=== PATIENT | female | born 1995 | race Caucasian/White ===

== ENCOUNTER → 2020-06-19 10:56 | Outpatient (BNVA) | payer OTHER, SELFPAY | PROVIDERS: Visit Provider Nurse Practitioner Psychiatric/Mental Health | DX: F19.10 Other psychoactive substance abuse, uncomplicated (principal) | CPT/HCPCS: 80305; 81025; 96372; 99211 ==

== ENCOUNTER 2020-07-03 13:31 | Outpatient (REF) | payer OTHER, SELFPAY ==
[2020-07-03 16:49] LABS: MANUAL DIFF FLAG NO
[2020-07-03 16:52] LABS: Basophils Percent Auto 0.7 % (0-2); Eosinophils Absolute Auto 0.1 X10*3/uL (0.0-0.4); Eosinophils Percent Auto 2.3 % (0-4); Hematocrit 43.5 % (37-47); Hemoglobin 14.1 g/dl (12.0-16.0); Imm Gran Abs Auto 0.02 X10*3/uL (0.00-0.03); Imm Gran Pct Auto 0.3 % (0.0-0.4); Lymphocytes Absolute Auto 1.9 X10*3/uL (1.2-4.9); Lymphocytes Percent Auto 30.4 % (20-40); Mean Corpuscular HGB Conc 32.4 g/dl (31.0-35.0); Mean Corpuscular Hemoglobin 30.5 pg (27.0-33.0); Mean Platelet Volume 10.3 fL (9.4-12.3); Monocytes Absolute Auto 0.4 X10*3/uL (0.1-1.2); Monocytes Percent Auto 6.7 % (2-11); Neutrophils Absolute Auto 3.6 X10*3/uL (2.0-8.3); Neutrophils Percent Auto 59.6 % (45-73); Platelet Count 237 X10*3/uL (160-400); Red Blood Count 4.63 X10*6/uL (4.20-5.50); White Blood Count 6.1 X10*3/uL (4.8-10.8)
[2020-07-03 17:13] LABS: Alanine Aminotransferase 15 U/L (0-31); Albumin Level 4.7 g/dL (3.5-5.0); Alkaline Phosphatase 73 U/L (39-117); Anion Gap 14 (12-20); Aspartate Amino Transferase 15 U/L (5-31); Bilirubin Total 0.3 mg/dL (0.0-1.0); Blood Urea Nitrogen 16 mg/dL (9-16); Calcium 8.8 mg/dL (8.4-10.2); Carbon Dioxide 27 mmol/L (22-29); Chloride 101 mmol/L (96-108); Estimated Glomerular Filt Rate > 60; Glucose Random 76 mg/dL (60-115); Sodium 138 mmol/L (135-145); Total Protein 7.5 g/dL (6.5-8.0)
== END 2020-07-03 13:32 | disposition home or self-care (01) ==
LOC: HO.HMGCLDS 13:31
PROVIDERS: PCP Nurse Practitioner Family; Visit Provider Internal Medicine Gastroenterology
DX: E55.9 Vitamin D deficiency, unspecified (principal); K59.01 Slow transit constipation; R10.9 Unspecified abdominal pain
CPT/HCPCS: 36415; 80053; 82306; 85025

== ENCOUNTER → 2020-07-22 12:58 | Outpatient (BNVA) | payer OTHER, SELFPAY | PROVIDERS: PCP Nurse Practitioner Family; Visit Provider Advanced Practice Midwife | DX: Z30.42 Encounter for surveillance of injectable contraceptive (principal); F11.99 Opioid use, unspecified with unspecified opioid-induced disorder | CPT/HCPCS: 80305; 81025; 99211; 99212; J1050 ==

== ENCOUNTER → 2020-08-28 14:08 | Outpatient (BNVA) | payer OTHER, SELFPAY | PROVIDERS: Visit Provider Internal Medicine | DX: Z76.89 Persons encountering health services in other specified circumstances (principal) ==

== ENCOUNTER → 2020-10-06 13:07 | Outpatient (BNVA) | payer OTHER, SELFPAY | PROVIDERS: Visit Provider Internal Medicine | DX: Z51.81 Encounter for therapeutic drug level monitoring (principal); F11.99 Opioid use, unspecified with unspecified opioid-induced disorder | CPT/HCPCS: 80305; 81025; 99211 ==

== ENCOUNTER → 2020-10-23 13:09 | Outpatient (BNVA) | payer OTHER, SELFPAY | PROVIDERS: Visit Provider Advanced Practice Midwife | DX: Z30.42 Encounter for surveillance of injectable contraceptive (principal) | CPT/HCPCS: 96372 ==

== ENCOUNTER → 2020-10-24 15:07 | Outpatient (BNVA) | payer OTHER, SELFPAY | PROVIDERS: Visit Provider Internal Medicine ==

== ENCOUNTER 2020-11-13 08:30 | Outpatient (RCR) | payer OTHER, SELFPAY ==
[2020-11-05 15:16] VITALS: BMI 22.4
--- NOTE | 2020-11-05 16:40 | PM.EVENT ---
Event Note Date of Service: 11/05/20 Event Note: Pt scheduled for medication initial eval at 2pm. Pt came on video, did not allow herself on camera, stated she had worked all night, had an intake for PHP at 7:30a.m., attended the program all day, had seen her medicine provider on 11/04/20 and was not in need of any changes, needed to sleep for a few hours now, so she could attend class this evening. As a result, she declined intake.
--- NOTE | 2020-11-06 13:04 | PC.ADMIT ---
Patient is a 25 year old female who self referred to PHP d/t increase in depression, anxiety, and PTSD sxs. In addition patient reports relapse on Heroin after sobriety for a year. She reports she let her boyfriend, who uses heroin, move in with her recently as he was going to be homeless. She reports issues with boundaries and has difficulty staying no. Stated she did not want him to be homeless as she has been homeless in the past and did not want him to experience what she experienced. 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 Has much guilt and shame about this and suffers from PTSD as a result. She states that she relapsed as her boyfriends use triggered her use. She stated her boyfriend has until 11/27/[address] and move out. She reports she is trying to get her life back on track and has been attending online college and working. She also has her own apartment and she is focused on her mental health and sobriety as she does not want to lose the things she has worked so hard to obtain. 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 Patient is alert and oreinted x4. Denied SI. Gave verbal permission to email her a copy of her safety plan. Medications reconciled with patients pharmacy and patient.
--- NOTE | 2020-11-07 13:35 | PC.NURSE ---
case opened in treatment team
--- NOTE | 2020-11-12 09:54 | PC.NURSE ---
Pt did not show for programming. When called pt reported she was sleeping because she worked the overnight shift. Discussed if completing this program is doable for her while she is still working. She agreed to think about it. She reported she will be back tomorrow.
--- NOTE | 2020-11-12 14:14 | PC.NURSE ---
The client did not come in and was called. She overslept because she worked . She talked with her employer and will be taking a break from work to attend consistently.
--- NOTE | 2020-11-13 14:21 | PM.EVENT ---
Event Note Date of Service: 11/13/20 Event Note: Pt no show to telehealth appointment w/ psychiatric prescriber.
--- NOTE | 2020-11-18 15:05 | PC.NURSE ---
The client called this morning to inform me that she is having difficulty staying abstinent and will be going into a detox and has made the arrangements . She has out patient provides and will be continuing with them.( Guillermo Dumont and prescriber at [facility].)
--- NOTE | 2020-11-18 15:26 | PC.NURSE ---
I left a message for Guillermo Richey ( [phone]) that her client has been discharged and will call her for an appointment. I left my contact information.
== END 2020-11-13 23:55 | disposition other institution (70) ==
LOC: HO.PHPA 08:30
PROVIDERS: Visit Provider Psychiatry & Neurology Psychiatry
DX: F33.2 Major depressive disorder, recurrent severe without psychotic features (principal); F43.10 Post-traumatic stress disorder, unspecified; F11.20 Opioid dependence, uncomplicated
CPT/HCPCS: 90791; 90853

== ENCOUNTER → 2021-01-19 12:58 | Outpatient (BNVA) | payer OTHER, SELFPAY | PROVIDERS: Visit Provider Obstetrics & Gynecology | DX: Z30.42 Encounter for surveillance of injectable contraceptive (principal) | CPT/HCPCS: 96372; 99211; J1050 ==

== ENCOUNTER → 2021-01-20 11:08 | Outpatient (BNVA) | payer OTHER, SELFPAY | PROVIDERS: Visit Provider Internal Medicine ==

== ENCOUNTER → 2021-02-02 13:05 | Outpatient (BNVA) | payer OTHER, SELFPAY | PROVIDERS: Visit Provider Internal Medicine | DX: Z51.81 Encounter for therapeutic drug level monitoring (principal); F11.90 Opioid use, unspecified, uncomplicated | CPT/HCPCS: 80305; 99212 ==

== ENCOUNTER 2021-02-17 15:16 | Outpatient (REF) | payer OTHER, SELFPAY ==
[2021-02-20 08:53] LABS: Norfentanyl, Ur >500.0
[2021-02-20 14:42] LABS: Buprenorphine Negative; Norbuprenorphine Negative
== END 2021-02-17 15:17 | disposition home or self-care (01) ==
LOC: HO.LAB 15:16
PROVIDERS: Visit Provider Internal Medicine
DX: F11.99 Opioid use, unspecified with unspecified opioid-induced disorder (principal); Z79.899 Other long term (current) drug therapy
CPT/HCPCS: 80305; 80348; 80354; 80364; 80365; 99211

== ENCOUNTER → 2021-02-23 15:47 | Outpatient (BNVA) | payer OTHER, SELFPAY | PROVIDERS: Visit Provider Internal Medicine | DX: Z51.81 Encounter for therapeutic drug level monitoring (principal); Z79.899 Other long term (current) drug therapy | CPT/HCPCS: 80305 ==

== ENCOUNTER → 2021-03-05 09:53 | Outpatient (BNVA) | payer OTHER, SELFPAY | PROVIDERS: Visit Provider Nurse Practitioner Psychiatric/Mental Health | DX: F11.99 Opioid use, unspecified with unspecified opioid-induced disorder (principal) | CPT/HCPCS: 80305; 99212 ==

== ENCOUNTER → 2021-04-23 11:05 | Outpatient (BNVA) | payer OTHER, SELFPAY | PROVIDERS: Visit Provider Advanced Practice Midwife | DX: Z30.42 Encounter for surveillance of injectable contraceptive (principal) | CPT/HCPCS: 96372; 99211 ==

== ENCOUNTER → 2021-05-21 10:20 | Outpatient (BNVA) | payer OTHER, SELFPAY | PROVIDERS: Referring Provider Nurse Practitioner Family; Visit Provider Internal Medicine Gastroenterology | DX: K59.09 Other constipation (principal) | CPT/HCPCS: 99212 ==

== ENCOUNTER 2021-07-22 14:34 | Outpatient (REF) | payer OTHER, SELFPAY ==
[2021-07-23 03:02] LABS: CT PCR NOT DETECTED (Not Detect.); NG PCR NOT DETECTED (Not Detect.)
[2021-07-24 08:53] LABS: BV Int Neg Control Negative (Negative); BV Int Pos Control Positive (Positive)
== END 2021-07-22 14:35 | disposition home or self-care (01) ==
LOC: HO.LAB 14:34
PROVIDERS: PCP Nurse Practitioner Family; Visit Provider Advanced Practice Midwife
DX: Z30.42 Encounter for surveillance of injectable contraceptive (principal); Z20.2 Contact with and (suspected) exposure to infections with a predominantly sexual mode of transmission; N89.8 Other specified noninflammatory disorders of vagina; F11.99 Opioid use, unspecified with unspecified opioid-induced disorder; F41.9 Anxiety disorder, unspecified; F32.9 Major depressive disorder, single episode, unspecified
CPT/HCPCS: 87480; 87491; 87510; 87591; 87660; 88142; 96372

== ENCOUNTER 2021-08-20 11:48 | Outpatient (REF) | payer OTHER, SELFPAY ==
[2021-08-20 14:16] LABS: Alanine Aminotransferase 21 U/L (0-31); Albumin Level 4.6 g/dL (3.5-5.0); Alkaline Phosphatase 108 U/L (39-117); Anion Gap 12 (12-20); Aspartate Amino Transferase 16 U/L (5-31); Bilirubin Total 0.5 mg/dL (0.0-1.0); Blood Urea Nitrogen 9 mg/dL (9-16); Calcium 10.1 mg/dL (8.4-10.2); Carbon Dioxide 27 mmol/L (22-29); Chloride 103 mmol/L (96-108); Cholesterol 167 mg/dL; Estimated Glomerular Filt Rate > 60; Glucose Fasting 73 mg/dL (60-99); HDL Cholesterol 39 mg/dL; LDL Cholesterol Calculated 104 mg/dl; Lipase 20 U/L (8-78); Potassium 4.2 mmol/L (3.3-5.1); Sodium 138 mmol/L (135-145); Total Protein 8.5 g/dL (6.5-8.0); Triglycerides 122 mg/dL
== END 2021-08-20 11:49 | disposition home or self-care (01) ==
LOC: HO.HMGCLDS 11:48
PROVIDERS: Absent Provider Internal Medicine Gastroenterology; PCP Nurse Practitioner Family; Visit Provider Nurse Practitioner Family
DX: Z00.00 Encounter for general adult medical examination without abnormal findings (principal); K59.09 Other constipation
CPT/HCPCS: 36415; 80053; 80061; 83690

== ENCOUNTER → 2021-09-10 09:56 | Outpatient (BNVA) | payer OTHER, SELFPAY | PROVIDERS: Referring Provider Nurse Practitioner Family; Visit Provider Internal Medicine Gastroenterology | DX: K59.00 Constipation, unspecified (principal); K21.9 Gastro-esophageal reflux disease without esophagitis; E55.9 Vitamin D deficiency, unspecified | CPT/HCPCS: 99212 ==

== ENCOUNTER 2021-09-11 14:13 | Outpatient (REF) | payer OTHER, SELFPAY ==
--- NOTE | ~2021-09-11 | XR_ITS ---
EXAMINATION: XR ABDOMEN KUB CLINICAL INDICATION: Constipation COMPARISON: None TECHNIQUE: AP view of the abdomen. FINDINGS: There is stool in the colon suggestive of constipation. There are no dilated loops of bowel to suggest obstruction. There is no evidence of free air. No calcifications are seen. Bony structures are unremarkable. XR/XR KUB IMPRESSION: Constipation. No evidence of obstruction.
== END 2021-09-11 14:14 | disposition home or self-care (01) ==
LOC: HO.HMGCX 14:13
PROVIDERS: PCP Nurse Practitioner Family; Visit Provider Internal Medicine Gastroenterology
DX: K59.09 Other constipation (principal)
CPT/HCPCS: 74018

== ENCOUNTER → 2021-09-18 13:11 | Outpatient (BNVA) | payer OTHER, SELFPAY | PROVIDERS: Visit Provider Nurse Practitioner Psychiatric/Mental Health | DX: Z51.81 Encounter for therapeutic drug level monitoring (principal); F11.20 Opioid dependence, uncomplicated | CPT/HCPCS: 80305 ==

== ENCOUNTER → 2021-09-24 13:20 | Outpatient (BNVA) | payer OTHER, SELFPAY | PROVIDERS: Visit Provider Nurse Practitioner Psychiatric/Mental Health ==

== ENCOUNTER → 2021-10-01 13:29 | Outpatient (BNVA) | payer OTHER, SELFPAY | PROVIDERS: Visit Provider Nurse Practitioner Psychiatric/Mental Health | DX: F11.20 Opioid dependence, uncomplicated (principal) | CPT/HCPCS: 80305; 99212 ==

== ENCOUNTER → 2021-10-08 13:19 | Outpatient (BNVA) | payer OTHER, SELFPAY | PROVIDERS: Visit Provider Nurse Practitioner Psychiatric/Mental Health | DX: Z51.81 Encounter for therapeutic drug level monitoring (principal); F11.20 Opioid dependence, uncomplicated | CPT/HCPCS: 80305; 99212 ==

== ENCOUNTER → 2021-10-15 13:45 | Outpatient (BNVA) | payer OTHER, SELFPAY | PROVIDERS: Visit Provider Nurse Practitioner Psychiatric/Mental Health | DX: Z30.42 Encounter for surveillance of injectable contraceptive (principal); F11.20 Opioid dependence, uncomplicated; Z51.81 Encounter for therapeutic drug level monitoring; Z79.899 Other long term (current) drug therapy | CPT/HCPCS: 96372; 99211; 99212 ==

== ENCOUNTER → 2021-11-05 13:26 | Outpatient (BNVA) | payer OTHER, SELFPAY | PROVIDERS: Visit Provider Nurse Practitioner Psychiatric/Mental Health | DX: F11.20 Opioid dependence, uncomplicated (principal); R11.10 Vomiting, unspecified | CPT/HCPCS: 80305; 99212 ==

== ENCOUNTER 2021-11-06 09:22 | Emergency (ER) | payer OTHER, SELFPAY ==
--- NOTE | ~2021-11-06 | XR_ITS ---
EXAMINATION: XR CHEST CLINICAL INFORMATION: Upper abdominal pain COMPARISON: Previous chest x-ray May 2019 TECHNIQUE: 2 views of the chest were obtained. FINDINGS: No significant abnormality is noted involving the heart, lungs, mediastinum, bony thorax or soft tissues. XR/XR chest 2V IMPRESSION: Unremarkable examination.
--- NOTE | ~2021-11-06 | US_ITS ---
EXAMINATION: US ABDOMEN LIMITED CLINICAL INFORMATION: Right upper quadrant pain. Question gallstones. COMPARISON: Previous abdominal ultrasound April 2020 TECHNIQUE: Real-time imaging of the right upper quadrant abdominal viscera. FINDINGS: PANCREAS: Not well visualized due to bowel gas LIVER: Liver echotexture is increased. The liver is normal in size. The liver contour is normal. . No focal hepatic lesion. There is no intrahepatic biliary duct dilatation seen. GALLBLADDER: Normal. The gallbladder is physiologically distended without evidence of stones, sludge, polyps, wall thickening or pericholecystic fluid. COMMON BILE DUCT: Normal in caliber measuring 0.5 cm in diameter. RIGHT KIDNEY: Normal. No hydronephrosis. No renal calculi or focal parenchymal lesions. The kidney measures 9.4 cm in maximum dimension. FREE FLUID: None. US/US abdomen limited IMPRESSION: Normal-appearing gallbladder. Echogenic liver. Limited visualization of the pancreas.
[2021-11-06 09:37] VITALS: BP 128/85; PULSE 85; RESP 16; TEMP 36.6; O2SAT 99; BMI 23.5
--- NOTE | 2021-11-06 11:24 | ED_ITS ---
HPI - Abdominal Pain General Chief Complaint: Abdominal Pain Stated Complaint: abd pain Time Seen by Provider: 11/06/21 10:57 Source: patient Mode of arrival: ambulatory Limitations: no limitations History of Present Illness HPI narrative: Patient is a 26-year-old female with a medical history of substance abuse; opioids, hepatitis C, constipation, GERD. Patient presents emergency department for evaluation of abdominal pain. Onset was 1-1.5 months ago. location is diffusely across the upper abdomen but more so over the epigastrium and right upper quadrant. She is followed by [facility] Gastroenterology Dr. Arthur, but has not yet been seen for this complaint. she states that the pain is intermittent. Lasting anywhere from 1-3 hours at a time. There is associated nausea. Once she vomits the pain subsides. States that the emesis is a clear color, no blood. she does report a history of a stomach ulcer in 2016. In addition she has been experiencing acid reflux type symptoms for which she was taking fa motidine from August to mid September. Denies fevers, chills, nasal congestion, sore throat, cough, chest pain, shortness of breath, difficulty breathing, lower abdominal pain, dysuria, urinary frequency / urgency / hesitancy, constipation or diarrhea. She does endorse bright red blood in her stools for which she is being followed by GI for and is prescribed Linzess. Denies possibility of , she is on Depo-Provera injections Related Data Previous Rx's Medication Instructions Recorded magnesium hydroxide 400 mg/5 mL 5 ml PO DAILY PRN 7 Days #60 ml 05/21/21 oral suspension (Milk of Magnesia) medroxyprogesterone 150 mg/mL 150 mg IM Q12W #1 ml 07/22/21 intramuscular suspension (Depo-Provera) cholecalciferol (vitamin D3) 125 125 mcg PO DAILY 90 Days #90 tab 09/10/21 mcg (5,000 unit) tablet famotidine 20 mg tablet 20 mg PO BEDTIME 30 Days #30 tab 09/10/21 buprenorphine 8 mg-naloxone 2 mg 1 film BUCCAL BID #14 ea 10/01/21 sublingual film (Suboxone) buprenorphine 2 mg-naloxone 0.5 mg 2 film BUCCAL DAILY 5 Days #10 ea 10/08/21 sublingual film (Suboxone) clonidine HCl 0.1 mg tablet 0.1 mg PO TID 7 Days #21 tab 10/08/21 hydroxyzine pamoate 25 mg capsule 25 mg PO TID PRN 7 Days #21 cap 10/08/21 (Vistaril) lubiprostone 8 mcg capsule 8 mcg PO BID 30 Days #60 cap 10/12/21 (Amitiza) ondansetron HCl 4 mg tablet 4 mg PO BID-TID PRN #14 tab 11/05/21 Allergies Allergy/AdvReac Type Severity Reaction Status Date / Time No Known Allergies Allergy Verified 11/06/21 09:37 [No Known Allergies*] Review of Systems Review of Systems Constitutional : No Weight loss, No Fever, No Chills ENT/Mouth :? No sore throat, No Rhinorrhea Eyes: No Swelling, No Redness Cardiovascular : No Chest Pain, No SOB, No Edema Respiratory : No Cough, No Sputum, No Wheezing Gastrointestinal : Positive Nausea, Positive Vomiting, no Diarrhea, positive abdominal pain, positive Hematochezia, No Melena Genitourinary : No Dysuria, No Urinary Frequency, No Hematuria, No Urgency? Musculoskeletal : No joint pain, No Myalgias, No Joint Swelling Skin : No Skin Lesions, No rash Neuro : No Weakness, No Numbness, No Dizziness, No Headache Psych : No Anxiety/Panic, No Depression Heme/Lymph: No Bruising, No Lymphadenopathy Endocrine : No Polyuria, No Polydipsia Yes all other systems are reviewed and are negative [facility] Past Medical History Attestation statement: The following information was validated with the patient. Source: old records reviewed Medical History Opioid use disorder Scoliosis Sleep disturbance Surgical History No pertinent past surgical history Family History Family History Father Alcoholism Mother No problems noted. Maternal Grandfather Brain tumor Sister No problems noted. Social History Social History Household Members: None Alcohol intake: current Alcohol intake frequency: holidays/special occasions only Alcohol type: beer and wine Patient Tobacco Use Status: Former Tobacco user Cigarettes Per Day: 2 Years Smoked: 2 years Advance Directives: No Advance Directives Information Provided: Yes Physical Exam ED Vital Signs: Vital Signs - 24 hr 11/06/21 09:37 Temperature 97.8 F Pulse Rate 85 Respiratory Rate 16 Blood Pressure 128/85 Pulse Oximetry 99 BMI result Body Mass Index 23.5 Vital signs have been reviewed as normal and appeared to be correct. Blood pressure normal.? Heart rate normal.? Respiration rate normal. Temperature normal.? Oxygen saturation normal. Appearance: Alert.?Oriented to person, place and time. No acute distress.?Normal affect. Eyes: Pupils equal, round and reactive to light.? ENT: Pharynx normal.?? Neck: Normal inspection.? Neck supple.?? CVS: Heart sounds normal. Normal heart rate and rhythm.? Pulses normal.?? Respiratory: No respiratory distress.? Lung sounds clear to auscultation bilaterally?? Abdomen: Soft with tenderness to palpation diffusely of the upper abdomen, negative Louise sign.. Normoactive bowel sounds. No pulsatile mass.?? Skin: Skin warm and dry.? Normal skin color.? Normal skin turgor.?? Extremities: No lower extremity edema.? Neuro: Moves all extremities spontaneously. Sensation intact bilaterally. No focal neuro deficits. Ambulates with normal steady gait. Course Course Course Narrative: Patient is a 26-year-old female being evaluated for abdominal pain with nausea and vomiting. Will obtain CBC to evaluate for leukocytosis/ anemia, CMP and lipase to evaluate for abnormal electrolytes /abnormal renal function/ abnormal hepatic/biliary function. Urinalysis to evaluate for infection and . Currently, she reports having little to no pain, has been drinking a warm lemon water and this has actually been helping. given her tenderness in the right upper quadrant will obtain ultrasound to evaluate for cholelithiasis / cholecystitis, as her pain may be related to biliary colic. History and physical exam not consistent with GI perforation, GI bleed, AAA, aortic dissection, ectopic , DKA. Not consistent with strangulated hernia, bowel obstruction, pulmonary embolism, mesenteric ischemia, myocardial infarction HEART score 0, ovarian torsion. Reevaluation(s) Reevaluation #1: COVID- 19 testing is negative. Chest x-ray shows no acute disease. Having a difficult time obtaining patient's labs. Patient is being evaluated by Surekha Villalobos NP outpatient for substance use disorder, she is at bedside with patient, and currently reporting withdrawal symptoms, methadone to be ordered Time: 12:56 Reevaluation #2: Continue to have difficulty obtaining patient's labs due to scarring of her veins. Offered to look with ultrasound guidance but patient is requesting to leave at this time. She feels she is unable to remain in the emergency department. Ultrasound RUQ with no acute findings. Advised patient that she w ould be leaving against medical advice, she verbalizes understanding of this, she is alert and oriented x3, ambulatory with a steady gait, no apparent distress. Discussed reasons to return to the emergency department in addition to contacting her primary care provider and her GI provider to schedule follow- up in 1-3 days Time: 13:59 MDM - Abdominal Pain Medical Records Attestation: I reviewed the patient's medical records. Lab Data Attestation: I reviewed the patient's lab results. Result diagrams: 11/06/21 14:04 Labs: Lab Results 11/06/21 Range/Units 11:38 COVID-19 ([facility]) Negative (Negative) COVID-19 Clin Com See Note Imaging Data Chest x-ray: Radiologist's impression: FINDINGS: No significant abnormality is noted involving the heart, lungs, mediastinum, bony thorax or soft tissues. XR/XR chest 2V IMPRESSION: Unremarkable examination. US - abdomen: Radiologist's impression: US/US abdomen limited IMPRESSION: Normal-appearing gallbladder. Echogenic liver. Limited visualization of the pancreas. Discharge Plan Discharge Clinical Impression: Abdominal pain Patient Disposition: Left Against Medical Advice Additional Instructions: At this time the cause of your abdominal pain is unclear. You are leaving against medical advice. As we discussed, it is unclear the cause of your abdominal pain and vomiting at this time. It is unclear whether you have any life-threatening conditions as we were unable to obtain any blood work or the results of her imaging studies. Please return to the emergency department with any new or worsening symptoms. You should contact her primary care provider and your GI doctor in 1-3 days to schedule follow-up. Prescriptions: No Action lubiprostone [Amitiza] 8 mcg capsule 8 mcg PO BID 30 Days Qty: 60 2RF magnesium hydroxide [Milk of Magnesia] 400 mg/5 mL suspension 5 ml PO DAILY PRN (Reason: constipation) 7 Days Qty: 60 1RF famotidine 20 mg tablet 20 mg PO BEDTIME 30 Days Qty: 30 3RF cholecalciferol (vitamin D3) 125 mcg (5,000 unit) tablet 125 mcg PO DAILY 90 Days Qty: 90 1RF medroxyprogesterone [Depo-Provera] 150 mg/mL suspension 150 mg IM Q12W Qty: 1 5RF buprenorphine-naloxone [Suboxone] 8-2 mg film 1 film buccal BID Qty: 14 0RF ondansetron HCl 4 mg tablet 4 mg PO BID-TID PRN (Reason: nausea and vomiting) Qty: 14 0RF clonidine HCl 0.1 mg tablet 0.1 mg PO TID 7 Days Qty: 21 0RF hydroxyzine pamoate [Vistaril] 25 mg capsule 25 mg PO TID PRN (Reason: anxiety) 7 Days Qty: 21 0RF buprenorphine-naloxone [Suboxone] 2-0.5 mg film 2 film buccal DAILY 5 Days Qty: 10 0RF Stand Alone Forms: Against Medical Advice
[2021-11-06 11:59] LABS: COVID-19 Test Negative (Negative)
[2021-11-06] MEDS: methADONE HCl 20 MG/2 ML ORAL.CONC 30 MG PO (13:44)
--- NOTE | 2021-11-06 13:46 | PC.NURSE ---
This RN pulled methadone from pyxis per order for adminstration. When wasting 10mg of Methadone too much medication dispensed out of the syringe. The remaining 10mg of methadone was wasted in the pyxis with another RN. Brinda Pharmacist aware and was able to override the new methadone for appropriate administration dose.
--- NOTE | 2021-11-06 14:21 | PC.NURSE ---
Patient is a hard stick for a blood try. Multiple attempts by technical account representative. Phlebotomy was called and SEVERITY OF ILLNESS COORDINATOR looked as well. Patient states she is tired of waiting and chooses to leave AMA. SEVERITY OF ILLNESS COORDINATOR dicussed risks of leaving AMA
== END 2021-11-06 14:23 | disposition left against medical advice (07) ==
PROVIDERS: Nurse Practitioner Family; Emergency Provider Emergency Medicine; PCP Nurse Practitioner Psychiatric/Mental Health
DX: R10.9 Unspecified abdominal pain (principal); R11.10 Vomiting, unspecified; F11.20 Opioid dependence, uncomplicated; Z20.822 Contact with and (suspected) exposure to COVID-19
CPT/HCPCS: 71046; 76705; 87635; 99283; 99284

== ENCOUNTER → 2021-11-12 12:11 | Outpatient (BNVA) | payer OTHER, SELFPAY | PROVIDERS: PCP Nurse Practitioner Psychiatric/Mental Health; Visit Provider Internal Medicine Gastroenterology | DX: F11.20 Opioid dependence, uncomplicated (principal); K21.9 Gastro-esophageal reflux disease without esophagitis; K59.09 Other constipation | CPT/HCPCS: 99212 ==

== ENCOUNTER → 2022-01-18 15:25 | Outpatient (BNVA) | payer OTHER, SELFPAY | PROVIDERS: Visit Provider Advanced Practice Midwife | DX: Z30.42 Encounter for surveillance of injectable contraceptive (principal) | CPT/HCPCS: 96372; 99211 ==

== ENCOUNTER 2022-02-18 12:16 | Outpatient (REF) | payer OTHER, SELFPAY ==
[2022-02-19 09:16] LABS: BV Int Neg Control Negative (Negative); BV Int Pos Control Positive (Positive)
[2022-02-19 09:33] LABS: CT PCR NOT DETECTED (Not Detect.); NG PCR DETECTED (Not Detect.)
== END 2022-02-18 12:17 | disposition home or self-care (01) ==
LOC: HO.LAB 12:16
PROVIDERS: Visit Provider Advanced Practice Midwife
DX: Z11.3 Encounter for screening for infections with a predominantly sexual mode of transmission (principal); N89.8 Other specified noninflammatory disorders of vagina
CPT/HCPCS: 87480; 87491; 87510; 87591; 87660; 99212

== ENCOUNTER → 2022-02-23 15:14 | Outpatient (BNVA) | payer OTHER, SELFPAY | PROVIDERS: Visit Provider Advanced Practice Midwife | DX: A54.9 Gonococcal infection, unspecified (principal) | CPT/HCPCS: 96372; 99212; J0696 ==

== ENCOUNTER → 2022-03-04 13:38 | Outpatient (BNVA) | payer OTHER, SELFPAY | PROVIDERS: PCP Nurse Practitioner Family; Visit Provider Nurse Practitioner Psychiatric/Mental Health | DX: F11.20 Opioid dependence, uncomplicated (principal) | CPT/HCPCS: 80305; 99212 ==

== ENCOUNTER → 2022-03-11 09:27 | Outpatient (BNVA) | payer OTHER, SELFPAY | PROVIDERS: PCP Nurse Practitioner Family; Visit Provider Nurse Practitioner Psychiatric/Mental Health | DX: Z51.81 Encounter for therapeutic drug level monitoring (principal); F11.20 Opioid dependence, uncomplicated | CPT/HCPCS: 80305; 99212 ==

== ENCOUNTER → 2022-04-14 11:00 | Outpatient (BNVA) | payer OTHER, SELFPAY | PROVIDERS: Visit Provider Advanced Practice Midwife | DX: Z30.42 Encounter for surveillance of injectable contraceptive (principal); F11.20 Opioid dependence, uncomplicated | CPT/HCPCS: 96372; 99211; 99212 ==

== ENCOUNTER → 2022-05-04 11:48 | Outpatient (BNVA) | payer OTHER, SELFPAY | PROVIDERS: PCP Nurse Practitioner Family; Visit Provider Nurse Practitioner Psychiatric/Mental Health | DX: F11.20 Opioid dependence, uncomplicated (principal); Z51.81 Encounter for therapeutic drug level monitoring; Z79.899 Other long term (current) drug therapy | CPT/HCPCS: 80305; 99212 ==

== ENCOUNTER 2022-05-12 14:07 | Outpatient (REF) | payer OTHER, SELFPAY ==
[2022-05-13 06:29] LABS: CT PCR NOT DETECTED (Not Detect.); NG PCR NOT DETECTED (Not Detect.)
== END 2022-05-12 14:08 | disposition home or self-care (01) ==
LOC: HO.LNP 14:07
PROVIDERS: PCP Nurse Practitioner Family; Visit Provider Advanced Practice Midwife
DX: Z11.3 Encounter for screening for infections with a predominantly sexual mode of transmission (principal); Z20.2 Contact with and (suspected) exposure to infections with a predominantly sexual mode of transmission
CPT/HCPCS: 87491; 87591; 99212

== ENCOUNTER → 2022-07-07 14:47 | Outpatient (BNVA) | payer OTHER, SELFPAY | PROVIDERS: PCP Nurse Practitioner Family; Visit Provider Advanced Practice Midwife | DX: Z30.42 Encounter for surveillance of injectable contraceptive (principal) | CPT/HCPCS: 96372; 99211 ==

== ENCOUNTER 2022-09-28 13:34 | Outpatient (REF) | payer OTHER, SELFPAY ==
[2022-09-29 05:36] LABS: CT PCR NOT DETECTED (Not Detect.); NG PCR NOT DETECTED (Not Detect.)
== END 2022-09-28 13:35 | disposition home or self-care (01) ==
LOC: HO.LNP 13:34
PROVIDERS: PCP Nurse Practitioner Family; Visit Provider Advanced Practice Midwife
DX: Z01.419 Encounter for gynecological examination (general) (routine) without abnormal findings (principal); Z11.3 Encounter for screening for infections with a predominantly sexual mode of transmission
CPT/HCPCS: 0353U

== ENCOUNTER → 2022-09-29 09:39 | Outpatient (BNVA) | payer OTHER, SELFPAY | PROVIDERS: PCP Nurse Practitioner Family; Visit Provider Advanced Practice Midwife | DX: Z30.42 Encounter for surveillance of injectable contraceptive (principal) | CPT/HCPCS: 96372; 99211 ==

== ENCOUNTER 2022-10-06 11:49 | Outpatient (REF) | payer OTHER, SELFPAY ==
[2022-10-06 13:55] LABS: MANUAL DIFF FLAG NO
[2022-10-06 14:03] LABS: Basophils Absolute Auto 0.1 X10*3/uL (0.0-0.2); Basophils Percent Auto 0.8 % (0-2); Eosinophils Absolute Auto 0.5 X10*3/uL (0.0-0.4); Eosinophils Percent Auto 6.7 % (0-4); Hematocrit 42.2 % (37.0-47.0); Hemoglobin 14.3 g/dl (12.0-16.0); Imm Gran Abs Auto 0.02 X10*3/uL (0.00-0.03); Imm Gran Pct Auto 0.3 % (0.0-0.4); Lymphocytes Absolute Auto 3.9 X10*3/uL (1.2-4.9); Mean Corpuscular HGB Conc 33.9 g/dl (31.0-35.0); Mean Corpuscular Hemoglobin 28.7 pg (27.0-33.0); Mean Corpuscular Volume 84.6 fL (80.0-98.0); Monocytes Absolute Auto 0.4 X10*3/uL (0.1-1.2); Monocytes Percent Auto 6.2 % (2-11); Neutrophils Absolute Auto 2.2 x10*3/uL (2.0-8.3); Platelet Count 269 X10*3/uL (160-400); Red Blood Count 4.99 X10*6/uL (4.20-5.50); Red Cell Distribution Width 13.8 % (11.0-16.0); White Blood Count 7.1 X10*3/uL (4.8-10.8)
[2022-10-06 14:04] LABS: Appearance Urine Clear; Color Urine Yellow; Glucose Urine UA Negative (Negative); Leukocyte Esterase Urine Negative (Negative); Nitrite Urine Negative (Negative); Specific Gravity - Urine 1.015 (1.005-1.025); Urine Blood Negative (Negative); Urine Ketones Negative (Negative); Urine Protein Negative (Neg-Trace)
[2022-10-06 14:54] LABS: Alanine Aminotransferase 23 U/L (0-31); Albumin Level 4.6 g/dL (3.5-5.0); Alkaline Phosphatase 83 U/L (39-117); Anion Gap 18 (12-20); Aspartate Amino Transferase 23 U/L (5-31); Bilirubin Total 0.4 mg/dL (0.0-1.0); Blood Urea Nitrogen 10 mg/dL (9-16); Calcium 9.5 mg/dL (8.4-10.2); Carbon Dioxide 21 mmol/L (22-29); Chloride 105 mmol/L (96-108); Cholesterol 162 mg/dL; Estimated Glomerular Filt Rate > 60; Glucose Fasting 94 mg/dL (60-99); HDL Cholesterol 56 mg/dL; LDL Cholesterol Calculated 95 mg/dl; Sodium 140 mmol/L (135-145); Total Protein 7.5 g/dL (6.5-8.0); Triglycerides 56 mg/dL
[2022-10-06 14:55] LABS: TSH reflex Free T4 2.19 uIU/mL (0.32-4.0)
== END 2022-10-06 11:50 | disposition home or self-care (01) ==
LOC: HO.HMGCLDS 11:49
PROVIDERS: PCP Nurse Practitioner Family; Visit Provider Nurse Practitioner Family
DX: F32.9 Major depressive disorder, single episode, unspecified (principal); F41.9 Anxiety disorder, unspecified
CPT/HCPCS: 36415; 80053; 80061; 81003; 84443; 85025

== ENCOUNTER → 2022-12-22 15:20 | Outpatient (BNVA) | payer OTHER, SELFPAY | PROVIDERS: PCP Nurse Practitioner Family; Visit Provider Advanced Practice Midwife | DX: Z30.42 Encounter for surveillance of injectable contraceptive (principal) | CPT/HCPCS: 96372; 99211 ==

== ENCOUNTER → 2023-02-24 13:22 | Outpatient (BNVA) | payer OTHER, SELFPAY | PROVIDERS: PCP Nurse Practitioner Family; Visit Provider Nurse Practitioner Psychiatric/Mental Health | DX: Z51.81 Encounter for therapeutic drug level monitoring (principal); F11.20 Opioid dependence, uncomplicated | CPT/HCPCS: 80305; 99212 ==

== ENCOUNTER → 2023-03-03 11:16 | Outpatient (BNVA) | payer OTHER, SELFPAY | PROVIDERS: PCP Nurse Practitioner Family; Visit Provider Internal Medicine Gastroenterology | DX: K59.00 Constipation, unspecified (principal); K21.9 Gastro-esophageal reflux disease without esophagitis | CPT/HCPCS: 99212 ==

== ENCOUNTER 2023-03-04 16:11 | Outpatient (AMB) | payer OTHER, SELFPAY ==
--- NOTE | 2023-03-04 16:12 | MHC.OFFVIS ---
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 Reviewed opioid use and medication admin times. ? taking suboxone dose too close to most recent use. Discussed alternate strategies for induction, patient stating she wants to try microdose induction method again. Advised to not use in the middle of the night as she previously had been to allow more time before morning suboxone dose. [facility] Medical History (Updated 03/03/23 @ 11:24 by Roge Arthur MD) Anxiety and depression Chronic constipation Depot contraception Drug abuse GERD (gastroesophageal reflux disease) Opioid use disorder Scoliosis Sleep disturbance Vitamin D deficiency Surgical History No pertinent past surgical history Family History Father Alcoholism Mother No problems noted. Maternal Grandfather Brain tumor Sister No problems noted. Social History Household Members: None Housing: Apartment Alcohol intake: current Alcohol intake frequency: holidays/special occasions only Alcohol type: beer and wine Patient Tobacco Use Status: Former Tobacco user Cigarettes Per Day: 2 Years Smoked: 2 years e-Cigarette/Vaping Use: Currently Using service: No Current occupational status: employed Current occupation: N Current occupational exposures/hazards: No Cognitive needs: No Hearing needs: No Vision needs: No Female Reproductive History Menstrual Age of Menarche: 13 Review of Systems Const Reports as per HPI Physical Exam Vital Signs: Last Vital Signs Pulse 77 03/04/23 16:19 BP 114/68 03/04/23 16:19 Pulse Ox 96 03/04/23 16:19 Oxygen Delivery Method Room Air 03/04/23 16:19 Const General: cooperative, healthy appearing and no acute distress Psych Appearance: well kempt Speech and movement: Clear speech present Affect: normal affect Attitude: cooperative Thought process: Normal thought process present Thought content: Normal thought content present Insight: Good insight present (Psych) Judgement: Good judgement present (Psych) Assessment & Plan Assessment & Plan (1) Opioid use disorder: Code(s): F11.99 - Opioid use, unspecified with unspecified opioid-induced disorder Plan: will restart microdose induction method overdose prevention discussion follow up one week RN to follow up --my need medication refill Coding Level of Care Code Est Pt Level 4 (65682) Diagnoses Opioid use disorder F11.99
[2023-03-04 16:19] VITALS: BP 114/68; PULSE 77; O2SAT 96
== END 2023-03-04 16:59 | disposition home or self-care (01) ==
LOC: HO.HCC 16:11
PROVIDERS: PCP Nurse Practitioner Family; Visit Provider Nurse Practitioner Psychiatric/Mental Health
DX: F11.99 Opioid use, unspecified with unspecified opioid-induced disorder (principal)
CPT/HCPCS: 99214

== ENCOUNTER → 2023-03-04 16:11 | Outpatient (BNVA) | payer OTHER, SELFPAY | PROVIDERS: PCP Nurse Practitioner Family; Visit Provider Nurse Practitioner Psychiatric/Mental Health | DX: F11.20 Opioid dependence, uncomplicated (principal); U07.0 Vaping-related disorder; Z51.81 Encounter for therapeutic drug level monitoring; Z79.899 Other long term (current) drug therapy | CPT/HCPCS: 99212 ==

== ENCOUNTER 2023-03-11 11:03 | Outpatient (AMB) | payer OTHER, SELFPAY ==
--- NOTE | 2023-03-11 11:03 | MHC.OFFVIS ---
Intake Vital Signs 03/11/23 11:08 BP 122/80 Blood Pressure Location Lt radial Position Sitting Pulse 85 Pulse Source Pulse Oximeter Pulse Oximetry (%) 95 Oxygen Delivery Method Room Air Intake Visit Reasons: mat visit Intake Note: The patient presents for a mat visit Civil Cadd Technician Required: No Allergies No Known Allergies [No Known Allergies*] Allergy (Verified 03/11/23 11:09) Do you need a note to return to daycare/school/sports/work: No HPI mat visit HPI Details Patient presents for follow up Has cut out using overnight. Feeling very positive about this. Would like to continue cutting down her use. Would also like to restart low-dose induction. She reports that she stopped after 3 days, denies any withdrawal symptoms. Likely related to anxiety of previous experience with withdrawal. Patient continues to engage in healthy recovery oriented activities including exercising with a group of women, eating healthy. [facility] Medical History (Updated 03/03/23 @ 11:24 by Roge Arthur MD) Anxiety and depression Chronic constipation Depot contraception Drug abuse GERD (gastroesophageal reflux disease) Opioid use disorder Scoliosis Sleep disturbance Vitamin D deficiency Surgical History No pertinent past surgical history Family History Father Alcoholism Mother No problems noted. Maternal Grandfather Brain tumor Sister No problems noted. Social History Household Members: None Housing: Apartment Alcohol intake: current Alcohol intake frequency: holidays/special occasions only Alcohol type: beer and wine Patient Tobacco Use Status: Former Tobacco user Cigarettes Per Day: 2 Years Smoked: 2 years e-Cigarette/Vaping Use: Currently Using service: No Current occupational status: employed Current occupation: [employer] Current occupational exposures/hazards: No Cognitive needs: No Hearing needs: No Vision needs: No Female Reproductive History Menstrual Age of Menarche: 13 Review of Systems Const Reports as per HPI and Reports no additional complaints Physical Exam Vital Signs: Last Vital Signs Pulse 85 03/11/23 11:08 BP 122/80 03/11/23 11:08 Pulse Ox 95 03/11/23 11:08 Oxygen Delivery Method Room Air 03/11/23 11:08 Const General: cooperative, healthy appearing and no acute distress Psych Appearance: well kempt Speech and movement: Clear speech present Affect: normal affect Attitude: cooperative Thought process: Normal thought process present Thought content: Normal thought content present Insight: Good insight present (Psych) Judgement: Good judgement present (Psych) Assessment & Plan Assessment & Plan (1) Opioid use disorder: Code(s): F11.99 - Opioid use, unspecified with unspecified opioid-induced disorder Plan: Will continue to attempt low-dose induction Sent additional 2 mg films, patient already has 8 mg films from previous prescription Follow up 2 weeks Medications: Changed From buprenorphine-naloxone 2-0.5 mg (Suboxone) 1 film sublingual BID 4 ea 0RF To buprenorphine-naloxone 2-0.5 mg (Suboxone) take in addition to 8mg QD 1 film sublingual DAILY 10 ea 0RF Coding Level of Care Code Est Pt Level 4 (77260) Diagnoses Opioid use disorder F11.99
[2023-03-11 11:08] VITALS: BP 122/80; PULSE 85; O2SAT 95
== END 2023-03-11 11:31 | disposition home or self-care (01) ==
LOC: HO.HCC 11:03
PROVIDERS: PCP Nurse Practitioner Family; Visit Provider Nurse Practitioner Psychiatric/Mental Health
DX: F11.99 Opioid use, unspecified with unspecified opioid-induced disorder (principal)
CPT/HCPCS: 99214

== ENCOUNTER → 2023-03-11 11:03 | Outpatient (BNVA) | payer OTHER, SELFPAY | PROVIDERS: PCP Nurse Practitioner Family; Visit Provider Nurse Practitioner Psychiatric/Mental Health | DX: F11.20 Opioid dependence, uncomplicated (principal) | CPT/HCPCS: 99212 ==

== ENCOUNTER 2023-03-15 15:10 | Outpatient (AMB) | payer OTHER, SELFPAY ==
[2023-03-15 15:18] VITALS: BMI 25.1
--- NOTE | 2023-03-15 15:18 | AM.OFFVISNUR ---
Intake Vital Signs 03/15/23 15:18 Height 5 ft 7 in Weight 72.745 kg BMI 25.1 Intake Visit Reasons: DEPO Allergies No Known Allergies [No Known Allergies*] Allergy (Verified 03/11/23 11:09) Nursing Note Faye is here for her scheduled Depo-Provera inj. She has no complaints at this time. Follow up in 12 weeks. Office Procedures Depo Questionnaire If YES to any of the following questions, please consult a provider. Date of last injection: 12/22/22 Date of last gynecology exam: 09/20/22 Menstrual pattern since last injection has been: Not Applicable Irregular bleeding?: No Breast lumps or other breast changes?: No Changes in weight or appetite?: No Depression or changes in mood?: No Abnormal hair growth or loss?: No Skin problems (rash, acne, discoloration)?: No Pain at the injection site?: No Headaches?: No Nervousness?: No Abdominal pain or cramping?: No Dizziness or nausea?: No Fatigue or weakness?: No Decrease in sexual drive?: No Chest pain or shortness of breath?: No Swelling in arms or legs?: No Any other problems or concerns?: none voiced Form completed by?: Ester Magana LPN Office Meds Depo-Provera Performing Provider: Carmenza Wilson CNM Administered by: Vanessa Magana LPN on 03/15/23 15:19 Dose Route Admin Location Lot Number Expiration Date [employer] 150 mg IM left deltoid [id number] 01/26/25 77141-192-57 [facility] Coding Level of Care Code Established Pt Est Pt Level 1 (28968) Patient Type Established History Problem Focused Exam Problem Focused Medical Decision Making Straight Forward Diagnoses Time Spent (min) 15 Assessment & Plan Assessment & Plan Orders: Orders AMB Medroxyprogesterone Injection Patient Supplied Today Z30.42 - Encounter for surveillance of injectable contraceptive
== END 2023-03-15 15:19 | disposition home or self-care (01) ==
LOC: HO.HWS 15:10
PROVIDERS: PCP Nurse Practitioner Family; Visit Provider Advanced Practice Midwife
DX: Z30.42 Encounter for surveillance of injectable contraceptive (principal)
CPT/HCPCS: J1050

== ENCOUNTER → 2023-03-15 15:10 | Outpatient (BNVA) | payer OTHER, SELFPAY | PROVIDERS: PCP Nurse Practitioner Family; Visit Provider Advanced Practice Midwife | DX: Z30.42 Encounter for surveillance of injectable contraceptive (principal) | CPT/HCPCS: 96372; 99211 ==

== ENCOUNTER 2023-04-01 10:29 | Outpatient (AMB) | payer OTHER, SELFPAY ==
[2023-04-01 10:36] VITALS: BP 110/78; PULSE 82; O2SAT 99
--- NOTE | 2023-04-01 10:36 | MHC.OFFVIS ---
Intake Vital Signs 04/01/23 10:36 BP 110/78 Blood Pressure Location Lt brachial Position Sitting Pulse 82 Pulse Oximetry (%) 99 Intake Visit Reasons: mat visit Allergies No Known Allergies [No Known Allergies*] Allergy (Verified 03/11/23 11:09) HPI mat visit HPI Details Patient presents for follow up Reports she has been unable to transition fully to buprenorphine. Gets to day 4, then does not take full film for fear of precipitated withdrawal. Discussed other methods of induction including Q2 hr dosing and macro dosing. Patient will think about it. Still using 6 bags intranasally daily. [facility] Medical History (Updated 03/03/23 @ 11:24 by Roge Arthur MD) Anxiety and depression Chronic constipation Depot contraception Drug abuse GERD (gastroesophageal reflux disease) Opioid use disorder Scoliosis Sleep disturbance Vitamin D deficiency Surgical History No pertinent past surgical history Family History Father Alcoholism Mother No problems noted. Maternal Grandfather Brain tumor Sister No problems noted. Social History Household Members: None Housing: Apartment Alcohol intake: current Alcohol intake frequency: holidays/special occasions only Alcohol type: beer and wine Patient Tobacco Use Status: Former Tobacco user Cigarettes Per Day: 2 Years Smoked: 2 years e-Cigarette/Vaping Use: Currently Using service: No Current occupational status: employed Current occupation: [employer] Current occupational exposures/hazards: No Cognitive needs: No Hearing needs: No Vision needs: No Female Reproductive History Menstrual Age of Menarche: 13 Review of Systems Const Reports as per HPI and Reports no additional complaints Physical Exam Vital Signs: Last Vital Signs Pulse 82 04/01/23 10:36 BP 110/78 04/01/23 10:36 Pulse Ox 99 04/01/23 10:36 Const General: cooperative, healthy appearing and no acute distress Psych Appearance: well kempt Speech and movement: Clear speech present Affect: normal affect Attitude: cooperative Thought process: Normal thought process present Thought content: Normal thought content present Insight: Good insight present (Psych) Judgement: Good judgement present (Psych) Assessment & Plan Assessment & Plan (1) Opioid use disorder: Code(s): F11.99 - Opioid use, unspecified with unspecified opioid-induced disorder Plan: Patient to consider other induction methods as discuss Will follow-up via phone Coding Level of Care Code Est Pt Level 3 (92355) Diagnoses Opioid use disorder F11.99
== END 2023-04-01 10:54 | disposition home or self-care (01) ==
LOC: HO.HCC 10:29
PROVIDERS: PCP Nurse Practitioner Family; Visit Provider Nurse Practitioner Psychiatric/Mental Health
DX: F11.99 Opioid use, unspecified with unspecified opioid-induced disorder (principal)
CPT/HCPCS: 99213

== ENCOUNTER → 2023-04-01 10:29 | Outpatient (BNVA) | payer OTHER, SELFPAY | PROVIDERS: PCP Nurse Practitioner Family; Visit Provider Nurse Practitioner Psychiatric/Mental Health | DX: F11.20 Opioid dependence, uncomplicated (principal) | CPT/HCPCS: 99212 ==

== ENCOUNTER 2023-04-05 10:08 | Outpatient (AMB) | payer OTHER, SELFPAY ==
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
[2023-04-05 10:11] VITALS: BP 110/64; BMI 25.1
== END 2023-04-05 11:05 | disposition home or self-care (01) ==
PROVIDERS: PCP Nurse Practitioner Family; Visit Provider Advanced Practice Midwife
DX: L73.9 Follicular disorder, unspecified (principal); Z30.09 Encounter for other general counseling and advice on contraception
CPT/HCPCS: 99213

== ENCOUNTER → 2023-04-05 10:08 | Outpatient (BNVA) | payer OTHER, SELFPAY | PROVIDERS: PCP Nurse Practitioner Family; Visit Provider Advanced Practice Midwife | DX: L73.9 Follicular disorder, unspecified (principal); Z30.09 Encounter for other general counseling and advice on contraception | CPT/HCPCS: 99212 ==

== ENCOUNTER 2023-04-19 08:58 | Outpatient (AMB) | payer OTHER, SELFPAY ==
--- NOTE | 2023-04-19 08:59 | A.OFFVIS_ITS ---
Intake Intake Visit Reasons: MAT Visit Allergies No Known Allergies [No Known Allergies*] Allergy (Verified 04/05/23 10:16) HPI MAT Visit HPI Details Patient presents for DRE follow up and check in Has tapered down to 3-4 bags daily Still very anxious --does not want to go back on Suboxone She reports he plan is to discontinue completely and then transition to vivitrol PFSH Medical History Anxiety and depression Chronic constipation Depot contraception Drug abuse GERD (gastroesophageal reflux disease) Opioid use disorder Scoliosis Sleep disturbance Vitamin D deficiency Surgical History No pertinent past surgical history Family History Father Alcoholism Mother No problems noted. Maternal Grandfather Brain tumor Sister No problems noted. Social History Household Members: None Housing: Apartment Alcohol intake: current Alcohol intake frequency: holidays/special occasions only Alcohol type: beer and wine Patient Tobacco Use Status: Former Tobacco user Cigarettes Per Day: 2 Years Smoked: 2 years e-Cigarette/Vaping Use: Currently Using service: No Current occupational status: employed Current occupation: N Current occupational exposures/hazards: No Cognitive needs: No Hearing needs: No Vision needs: No Female Reproductive History Menstrual Age of Menarche: 13 Review of Systems Const Reports as per HPI, Reports lethargy and Reports malaise Assessment & Plan Assessment & Plan (1) Opioid use disorder: Code(s): F11.99 - Opioid use, unspecified with unspecified opioid-induced disorder Plan: * patient to continue self taper of heroin * overdose prevention discussion * patient to call in to follow up Telehealth Telehealth Location of provider rendering services: practice address Location of patient: address on file Patient Identification confirmed using: Name, : Yes Telehealth method: voice only Patient verbally consented to treatment: Yes Patient verbally consented to billing insurance company: Yes Coding Level of Care Code Est Pt Level 4 (26806) Diagnoses Opioid use disorder F11.99
== END 2023-04-19 09:23 | disposition home or self-care (01) ==
LOC: HO.HCC 08:58
PROVIDERS: PCP Nurse Practitioner Family; Visit Provider Nurse Practitioner Psychiatric/Mental Health
DX: F11.99 Opioid use, unspecified with unspecified opioid-induced disorder (principal)
CPT/HCPCS: 99214

== ENCOUNTER → 2023-04-19 08:58 | Outpatient (BNVA) | payer OTHER, SELFPAY | PROVIDERS: PCP Nurse Practitioner Family; Visit Provider Nurse Practitioner Psychiatric/Mental Health | DX: Z51.81 Encounter for therapeutic drug level monitoring (principal); F11.20 Opioid dependence, uncomplicated | CPT/HCPCS: 99212 ==

== ENCOUNTER 2023-05-04 09:48 | Outpatient (AMB) | payer OTHER, SELFPAY ==
[2023-05-04 09:56] VITALS: BP 112/78; PULSE 58; O2SAT 98; BMI 25.7
--- NOTE | 2023-05-04 09:56 | A.OFFPC_ITS ---
Vital Signs 05/04/23 09:56 Height 5 ft 7 in Weight 164 lb BMI 25.7 BP 112/78 Blood Pressure Location Lt brachial Position Sitting Pulse 58 Pulse Source Pulse Oximeter Pulse Oximetry (%) 98 Oxygen Delivery Method Room Air Intake Visit Reasons: 4-5m appointment Allergies No Known Allergies [No Known Allergies*] Allergy (Verified 05/04/23 09:57) Medication List - Last Reconciled 05/04/23 by DELFINA Amador clonidine HCl 0.1 mg PO BEDTIME famotidine 20 mg PO BEDTIME 60 days gabapentin 300 mg PO DAILY 30 days hydroxyzine pamoate (Vistaril) 50 mg (2 x 25 mg) PO BEDTIME PRN linaclotide (Linzess) 72 mcg PO DAILY 60 days medroxyprogesterone (Depo-Provera) 150 mg IM Q12W nicotine 1 patch transdermal DAILY 30 days Tobacco use date assessed: 05/04/23 Dental Screening Dental Screen Date: 05/04/23 Did you have a dental visit in the last 12 months?: Yes Did you have a dental problem in the last 6 months where you did not have access to dental care?: No Was dental information given to patient?: Patient has dentist HPI 4-5m appointment HPI Details Anxiety: Pt is currently taking clonidine 0.1mg and gabapentin 300mg bid. Pt reports that gabapentin does help calm her down. Denies any SI and HI. Pt is following up with addiction medicine and psychiatry. Pt is still using heroin, though reports using only 2 bags a day. Encouraged pt to have her labs drawn. [facility] Medical History (Updated 05/04/23 @ 12:17 by DELFINA Amador) Anxiety and depression Chronic constipation Depot contraception Drug abuse GERD (gastroesophageal reflux disease) Opioid use disorder Scoliosis Sleep disturbance Vitamin D deficiency Surgical History No pertinent past surgical history Family History Father Alcoholism Mother No problems noted. Maternal Grandfather Brain tumor Sister No problems noted. Social History Household Members: None Housing: Apartment Alcohol intake: current Alcohol intake frequency: holidays/special occasions only Alcohol type: beer and wine Patient Tobacco Use Status: Former Tobacco user Cigarettes Per Day: 2 Years Smoked: 2 years e-Cigarette/Vaping Use: Currently Using service: No Current occupational status: employed Current occupation: [employer] Current occupational exposures/hazards: No Cognitive needs: No Hearing needs: No Vision needs: No Female Reproductive History Menstrual Age of Menarche: 13 Questionnaire Thrive Questionnaire Date Thrive assessed: 07/13/22 ZAINAB-7 AMB Questionnaire ZAINAB-7 Date ZAINAB - 7 assessed: 07/13/22 Source: Developed by Drs. Rogerio Nguyễn, Anuradha Haddad, Srini Bonilla and colleagues, with an educational romie from [employer]. Review of Systems Const Reports as per HPI Physical exam (Primary Care) Vital Signs: Last Vital Signs Pulse 58 05/04/23 09:56 BP 112/78 05/04/23 09:56 Pulse Ox 98 05/04/23 09:56 Oxygen Delivery Method Room Air 05/04/23 09:56 BMI result Body Mass Index 25.7 Tobacco/Smoking Status: Tobacco use Status Tobacco use date assessed 05/04/23 05/04/23 10:00 Patient Tobacco Use Status Former Tobacco user 05/04/23 10:00 e-Cigarette/Vaping Use Currently Using 05/04/23 10:00 Thrive Assessment: Date of Thrive Assessment Date Thrive assessed 07/13/22 05/04/23 10:00 Const General: cooperative Orientation/consciousness: patient oriented x3 Resp Effort & Inspection: normal respiratory effort Auscultation: clear to auscultation bilaterally Cardio Rate: regular rate Rhythm: regular rhythm Heart sounds: S1 normal heart sound present and S2 normal heart sound present Neuro General: patient oriented x3 Psych Appearance: grossly normal Mental Status: mental status grossly normal Speech and movement: Normal speech and movement present Affect: normal affect Attitude: cooperative Thought process: Normal thought process present Thought content: Normal thought content present Insight: Good insight present (Psych) Judgement: Good judgement present (Psych) Assessment and Plan Assessment & Plan (1) Drug abuse: Code(s): F19.10 - Other psychoactive substance abuse, uncomplicated Plan The patient agreed to the use of a medical records custodian for this encounter. Scribed for DELFINA Bruno by alfredo Zimmerman scribe, on 05/04/2023 at 10:05 EST. Medications: Changed From gabapentin 300 mg PO DAILY 30 days 30 caps 1RF To gabapentin 300 mg PO BID 30 days 60 caps 1RF Refilled hydroxyzine pamoate (Vistaril) 50 mg (2 x 25 mg) PO BEDTIME PRN 30 caps 2RF anxiety gabapentin 300 mg PO BID 60 caps 1RF 30 days Coding Level of Care Code Est Pt Level 3 (35735) Diagnoses Drug abuse F19.10
== END 2023-05-04 10:58 | disposition home or self-care (01) ==
PROVIDERS: Visit Provider Nurse Practitioner Family
DX: F19.10 Other psychoactive substance abuse, uncomplicated (principal)
CPT/HCPCS: 99213

== ENCOUNTER 2023-05-04 10:21 | Outpatient (REF) | payer OTHER, SELFPAY ==
[2023-05-04 13:21] LABS: MANUAL DIFF FLAG NO
[2023-05-04 13:38] LABS: Basophils Percent Auto 0.4 % (0-2); Eosinophils Absolute Auto 0.4 X10*3/uL (0.0-0.4); Eosinophils Percent Auto 5.2 % (0-4); Hemoglobin 13.5 g/dl (12.0-16.0); Imm Gran Abs Auto 0.01 X10*3/uL (0.00-0.03); Imm Gran Pct Auto 0.1 % (0.0-0.4); Lymphocytes Absolute Auto 2.9 X10*3/uL (1.2-4.9); Lymphocytes Percent Auto 41.2 % (20-40); Mean Corpuscular HGB Conc 33.8 g/dl (31.0-35.0); Mean Corpuscular Hemoglobin 29.2 pg (27.0-33.0); Mean Corpuscular Volume 86.4 fL (80.0-98.0); Mean Platelet Volume 10.2 fL (9.4-12.3); Monocytes Absolute Auto 0.5 X10*3/uL (0.1-1.2); Monocytes Percent Auto 7.4 % (2-11); Neutrophils Absolute Auto 3.2 x10*3/uL (2.0-8.3); Neutrophils Percent Auto 45.7 % (45-73); Platelet Count 258 X10*3/uL (160-400); Red Blood Count 4.63 X10*6/uL (4.20-5.50); Red Cell Distribution Width 13.6 % (11.0-16.0); White Blood Count 7.1 X10*3/uL (4.8-10.8)
[2023-05-04 13:40] LABS: Appearance Urine Clear; Color Urine Yellow; Glucose Urine UA Negative (Negative); Leukocyte Esterase Urine Trace (Negative); Nitrite Urine Negative (Negative); PH 8.5 (5.0-9.0); UMIC TRIGGER UACC YES; Urine Blood Negative (Negative); Urine Ketones Negative (Negative); Urine Protein Negative (Neg-Trace)
[2023-05-04 13:51] LABS: Bacteria Urine None Seen (None Seen); Hyaline Casts Urine 0-2 /LPF (0-2); RBC Urine 0-2 /HPF (0-2); Squamous Epithelial Cell Urine 0-2 /HPF (0-2); WBC Urine 0-5 /HPF (0-5)
[2023-05-04 13:55] LABS: Alanine Aminotransferase 21 U/L (0-31); Albumin Level 4.4 g/dL (3.5-5.0); Alkaline Phosphatase 80 U/L (39-117); Anion Gap 12 (12-20); Aspartate Amino Transferase 21 U/L (5-31); Bilirubin Total 0.6 mg/dL (0.0-1.0); Blood Urea Nitrogen 14 mg/dL (9-16); Calcium 9.9 mg/dL (8.4-10.2); Carbon Dioxide 25 mmol/L (22-29); Chloride 106 mmol/L (96-108); Estimated Glomerular Filt Rate > 60; Glucose Random 86 mg/dL (60-115); Potassium 3.6 mmol/L (3.3-5.1); Sodium 139 mmol/L (135-145); Total Protein 7.6 g/dL (6.5-8.0)
[2023-05-04 13:58] LABS: TSH reflex Free T4 1.66 uIU/mL (0.32-4.0)
== END 2023-05-04 10:22 | disposition home or self-care (01) ==
LOC: HO.HMGCLDS 10:21
PROVIDERS: PCP Nurse Practitioner Family; Visit Provider Nurse Practitioner Family
DX: F11.99 Opioid use, unspecified with unspecified opioid-induced disorder (principal)
CPT/HCPCS: 36415; 80053; 81001; 84443; 85025

== ENCOUNTER 2023-05-06 09:00 | Outpatient (AMB) | payer OTHER, SELFPAY ==
--- NOTE | 2023-05-06 09:01 | A.OFFVIS_ITS ---
Intake Intake Visit Reasons: MAT Visit Allergies No Known Allergies [No Known Allergies*] Allergy (Verified 05/04/23 09:57) HPI MAT Visit HPI Details Patient presents for telehealth follow up Has reduced use to 2 bags daily Still working FT Will be going on vacation Plan is to continue to taper opioid use until discontinued and then take naltrexone. [facility] Medical History (Updated 05/04/23 @ 12:17 by DELFINA Amador) Vitamin D deficiency GERD (gastroesophageal reflux disease) Chronic constipation Anxiety and depression Drug abuse Opioid use disorder Depot contraception Scoliosis Sleep disturbance Surgical History No pertinent past surgical history Family History Father Alcoholism Mother No problems noted. Maternal Grandfather Brain tumor Sister No problems noted. Social History Household Members: None Housing: Apartment Alcohol intake: current Alcohol intake frequency: holidays/special occasions only Alcohol type: beer and wine Patient Tobacco Use Status: Former Tobacco user Cigarettes Per Day: 2 Years Smoked: 2 years e-Cigarette/Vaping Use: Currently Using service: No Current occupational status: employed Current occupation: N Current occupational exposures/hazards: No Cognitive needs: No Hearing needs: No Vision needs: No Female Reproductive History Menstrual Age of Menarche: 13 Review of Systems Const Reports as per HPI and Reports no additional complaints Assessment & Plan Assessment & Plan (1) Opioid use disorder: Code(s): F11.99 - Opioid use, unspecified with unspecified opioid-induced disorder Plan: * Clonidine p.r.n. * Follow up as scheduled Telehealth Telehealth Location of provider rendering services: practice address Location of patient: address on file Patient Identification confirmed using: Name, : Yes Telehealth method: voice only Patient verbally consented to treatment: Yes Patient verbally consented to billing insurance company: Yes Coding Level of Care Code Tele Est Pt Level 3 (60534) Diagnoses Opioid use disorder F11.99
== END 2023-05-06 10:01 | disposition home or self-care (01) ==
LOC: HO.HCC 09:01
PROVIDERS: PCP Nurse Practitioner Family; Visit Provider Nurse Practitioner Psychiatric/Mental Health
DX: F11.99 Opioid use, unspecified with unspecified opioid-induced disorder (principal)
CPT/HCPCS: 99213

== ENCOUNTER → 2023-05-06 09:00 | Outpatient (BNVA) | payer OTHER, SELFPAY | PROVIDERS: PCP Nurse Practitioner Family; Visit Provider Nurse Practitioner Psychiatric/Mental Health ==

== ENCOUNTER 2023-05-20 15:16 | Outpatient (AMB) | payer OTHER, SELFPAY ==
[2023-05-20 15:27] VITALS: BP 110/70; PULSE 67; O2SAT 98
--- NOTE | 2023-05-20 15:27 | MHC.OFFVIS ---
Intake Vital Signs 05/20/23 15:27 BP 110/70 Blood Pressure Location Lt radial Position Sitting Pulse 67 Pulse Source Pulse Oximeter Pulse Oximetry (%) 98 Oxygen Delivery Method Room Air Intake Visit Reasons: MAT Visit Intake Note: the patient presents for a mat visit Soft Metals Engraver Hand Required: No Allergies No Known Allergies [No Known Allergies*] Allergy (Verified 05/20/23 15:30) Do you need a note to return to daycare/school/sports/work: No HPI MAT Visit HPI Details Patient presents for OUD treatment follow up Recently was on vacation in [place]. Has taken a semester off of school--feeling upset over recent work issue Still using 2 bags daily--still planning to decrease, but has felt limited motivation recently to do so. [facility] Medical History (Updated 05/04/23 @ 12:17 by DELFINA Amador) Vitamin D deficiency GERD (gastroesophageal reflux disease) Chronic constipation Anxiety and depression Drug abuse Opioid use disorder Depot contraception Scoliosis Sleep disturbance Surgical History No pertinent past surgical history Family History Father Alcoholism Mother No problems noted. Maternal Grandfather Brain tumor Sister No problems noted. Social History Household Members: None Housing: Apartment Alcohol intake: current Alcohol intake frequency: holidays/special occasions only Alcohol type: beer and wine Patient Tobacco Use Status: Former Tobacco user Cigarettes Per Day: 2 Years Smoked: 2 years e-Cigarette/Vaping Use: Currently Using service: No Current occupational status: employed Current occupation: [employer] Current occupational exposures/hazards: No Cognitive needs: No Hearing needs: No Vision needs: No Female Reproductive History Menstrual Age of Menarche: 13 Review of Systems Const Reports as per HPI and Reports difficulty sleeping Physical Exam Vital Signs: Last Vital Signs Pulse 67 05/20/23 15:27 BP 110/70 05/20/23 15:27 Pulse Ox 98 05/20/23 15:27 Oxygen Delivery Method Room Air 05/20/23 15:27 Const General: cooperative, healthy appearing and no acute distress Psych Appearance: well kempt Speech and movement: Clear speech present Affect: normal affect Attitude: cooperative Thought process: Normal thought process present Thought content: Normal thought content present Insight: Good insight present (Psych) Judgement: Good judgement present (Psych) Assessment & Plan Assessment & Plan (1) Opioid use disorder: Code(s): F11.99 - Opioid use, unspecified with unspecified opioid-induced disorder Plan: risk reduction discussion will continue to taper follow up 2 weeks Coding Level of Care Code Est Pt Level 4 (01399) Diagnoses Opioid use disorder F11.99
== END 2023-05-20 15:49 | disposition home or self-care (01) ==
LOC: HO.HCC 15:16
PROVIDERS: PCP Nurse Practitioner Family; Visit Provider Nurse Practitioner Psychiatric/Mental Health
DX: F11.99 Opioid use, unspecified with unspecified opioid-induced disorder (principal)
CPT/HCPCS: 99214

== ENCOUNTER → 2023-05-20 15:16 | Outpatient (BNVA) | payer OTHER, SELFPAY | PROVIDERS: PCP Nurse Practitioner Family; Visit Provider Nurse Practitioner Psychiatric/Mental Health | DX: F11.99 Opioid use, unspecified with unspecified opioid-induced disorder (principal) | CPT/HCPCS: 99212 ==

== ENCOUNTER 2023-06-07 14:09 | Outpatient (AMB) | payer OTHER, SELFPAY ==
[2023-06-07 14:22] VITALS: BMI 26.6
--- NOTE | 2023-06-07 14:22 | AM.OFFVISNUR ---
Intake Vital Signs 06/07/23 14:22 Height 5 ft 7 in Weight 77.111 kg BMI 26.6 Intake Visit Reasons: DEPO Allergies No Known Allergies [No Known Allergies*] Allergy (Verified 05/20/23 15:30) Nursing Note Faye is here today for her scheduled Depo-Provera inj. She has no complaints. She is undecided about continuing with the Depo-Provera due to concerns about Bone loss. Pt was advised to schedule a control consult with MUNIRA. Pt agrees with plan Next AG due 08/2023. Office Procedures Depo Questionnaire If YES to any of the following questions, please consult a provider. Date of last injection: 03/15/23 Date of last gynecology exam: 09/28/22 Menstrual pattern since last injection has been: Not Applicable Irregular bleeding?: No Breast lumps or other breast changes?: No Changes in weight or appetite?: No Depression or changes in mood?: No Abnormal hair growth or loss?: No Skin problems (rash, acne, discoloration)?: No Pain at the injection site?: No Headaches?: No Nervousness?: No Abdominal pain or cramping?: No Dizziness or nausea?: No Fatigue or weakness?: No Decrease in sexual drive?: No Chest pain or shortness of breath?: No Swelling in arms or legs?: No Any other problems or concerns?: none voiced Form completed by?: Ester Magana LPN Office Meds Depo-Provera 150 mg/mL intramuscular syringe Performing Provider: Carmenza Wilson CNM Performing Location: [facility] [place] [facility] Administered by: Vanessa Magana LPN on 06/07/23 14:22 Dose Route Admin Location Dispensed Lot Number Expiration Date [facility] Home Office Claims Examiner 150 mg IM left deltoid 1 mL [id number] 06/28/25 96753-295-86 [facility] Coding Level of Care Code Established Pt Est Pt Level 1 (32395) Patient Type Established History Problem Focused Exam Problem Focused Medical Decision Making Straight Forward Time Spent (min) 15 Assessment & Plan Assessment & Plan Orders: Orders AMB Medroxyprogesterone Injection Patient Supplied Today Z30.42 - Encounter for surveillance of injectable contraceptive
== END 2023-06-07 14:47 | disposition home or self-care (01) ==
PROVIDERS: PCP Nurse Practitioner Family; Visit Provider Advanced Practice Midwife
DX: Z30.42 Encounter for surveillance of injectable contraceptive (principal)

== ENCOUNTER → 2023-06-07 14:09 | Outpatient (BNVA) | payer OTHER, SELFPAY | PROVIDERS: PCP Nurse Practitioner Family; Visit Provider Advanced Practice Midwife | DX: Z30.42 Encounter for surveillance of injectable contraceptive (principal) | CPT/HCPCS: 96372; 99211; J1050 ==

== ENCOUNTER 2023-06-17 15:11 | Outpatient (AMB) | payer OTHER, SELFPAY ==
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
[2023-06-17 15:21] VITALS: BP 110/74; PULSE 73; O2SAT 96
== END 2023-06-17 16:08 | disposition home or self-care (01) ==
PROVIDERS: PCP Nurse Practitioner Family; Visit Provider Nurse Practitioner Psychiatric/Mental Health
DX: F11.99 Opioid use, unspecified with unspecified opioid-induced disorder (principal)
CPT/HCPCS: 99214

== ENCOUNTER → 2023-06-17 15:11 | Outpatient (BNVA) | payer OTHER, SELFPAY | PROVIDERS: PCP Nurse Practitioner Family; Visit Provider Nurse Practitioner Psychiatric/Mental Health | DX: F11.20 Opioid dependence, uncomplicated (principal); U07.0 Vaping-related disorder; Z87.891 Personal history of nicotine dependence; Z51.81 Encounter for therapeutic drug level monitoring; Z79.899 Other long term (current) drug therapy | CPT/HCPCS: 99212 ==

== ENCOUNTER 2023-07-08 11:32 | Outpatient (AMB) | payer OTHER, SELFPAY ==
--- NOTE | 2023-07-08 11:36 | MHC.AM.SUB ---
Intake Intake Visit Reasons: MAT Visit Allergies No Known Allergies [No Known Allergies*] Allergy (Verified 06/17/23 15:24) HPI MAT Visit HPI Details Patient presents for follow up Continues to cut down--5 bags IN daily. 2 in AM, 1 after work and 2 before bed Reviewed strategies to continue decreasing use. Provided support and encouragement Overdose prevention discussion [facility] Medical History (Updated 05/04/23 @ 12:17 by DELFINA Amador) Vitamin D deficiency GERD (gastroesophageal reflux disease) Chronic constipation Anxiety and depression Drug abuse Opioid use disorder Depot contraception Scoliosis Sleep disturbance Surgical History No pertinent past surgical history Family History Father Alcoholism Mother No problems noted. Maternal Grandfather Brain tumor Sister No problems noted. Social History Household Members: None Housing: Apartment Alcohol intake: current Alcohol intake frequency: holidays/special occasions only Alcohol type: beer and wine Patient Tobacco Use Status: Former Tobacco user Cigarettes Per Day: 2 Years Smoked: 2 years e-Cigarette/Vaping Use: Currently Using service: No Current occupational status: employed Current occupation: N Current occupational exposures/hazards: No Cognitive needs: No Hearing needs: No Vision needs: No Female Reproductive History Menstrual Age of Menarche: 13 Review of Systems Const Reports as per HPI and Reports no additional complaints Physical Exam Const General: cooperative, healthy appearing and no acute distress Psych Appearance: well kempt Speech and movement: Clear speech present Affect: normal affect Attitude: cooperative Thought process: Normal thought process present Thought content: Normal thought content present Insight: Good insight present (Psych) Judgement: Good judgement present (Psych) Assessment & Plan Assessment & Plan (1) Opioid use disorder: Code(s): F11.99 - Opioid use, unspecified with unspecified opioid-induced disorder Plan: continue decreasing use as tolerated risk reduction discussion follow up 3 weeks Coding Level of Care Code Est Pt Level 4 (91072) Diagnoses Opioid use disorder F11.99
== END 2023-07-08 15:46 | disposition home or self-care (01) ==
PROVIDERS: PCP Nurse Practitioner Family; Visit Provider Nurse Practitioner Psychiatric/Mental Health
DX: F11.99 Opioid use, unspecified with unspecified opioid-induced disorder (principal)
CPT/HCPCS: 99214

== ENCOUNTER → 2023-07-08 11:32 | Outpatient (BNVA) | payer OTHER, SELFPAY | PROVIDERS: PCP Nurse Practitioner Family; Visit Provider Nurse Practitioner Psychiatric/Mental Health | DX: F11.20 Opioid dependence, uncomplicated (principal) | CPT/HCPCS: 99212 ==

== ENCOUNTER 2023-07-14 11:03 | Outpatient (AMB) | payer OTHER, SELFPAY ==
--- NOTE | 2023-07-14 11:08 | A.OFFVIS_ITS ---
Intake Vital Signs 07/14/23 11:12 Height 5 ft 7 in Weight 175 lb BMI 27.4 BP 108/66 Blood Pressure Location Lt brachial Position Sitting Pulse 77 Intake Visit Reasons: 4 Month Follow Up Intake Note: Patient follow up for Constipation. Patient cc: constipation is much better, denies any GI issues. Allergies No Known Allergies [No Known Allergies*] Allergy (Verified 07/14/23 11:09) Medication List - Last Reconciled 07/14/23 by Roge Arthur MD clonidine HCl 0.1 mg PO BEDTIME gabapentin 300 mg PO BID 30 days hydroxyzine pamoate (Vistaril) 50 mg (2 x 25 mg) PO BEDTIME PRN medroxyprogesterone (Depo-Provera) 150 mg IM Q12W nicotine 1 patch transdermal DAILY 30 days trazodone 50 mg PO BEDTIME PRN 30 days HPI 4 Month Follow Up HPI Details GI clinic visit for this 28-year-old female for follow-up hep C genotype 1a - treated in the past with Mavyret x 8 weeks. (She missed 2-3 weeks of treatment and h epatitis C viral load was negative at the end of treatment and at 1 year FU testing. Pt has been followed by Dr Grissom since 04/2018. IMAGING STUDIES:? 11/06/21 abdominal ultrasound showed: Normal-appearing gallbladder. Echogenic liver. TODAY'S VISIT: Started taking a supplement - OPTI greens and OPTI reds for bloating (supports immune system, contains digest manpreet enzymes and probiotics) - helps with bloating. Symptoms improved and stopped taking Famotidine and Linzess She was getting acid reflux at night since she was eating icecream and candy at bedtime Takes TUMS once a week for acid reflux - upto 10 tablets Has a BM once a day Denies rectal bleeding. 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 She was seen at [facility] on 11/06/21 with above symptoms Unable to keep anything down. Has been feeling better and back to normal for the past week. Has been drinking 3-4 cups of hot water with lemon, apple cider vinegar, honey and cinnamon Above symptoms have resolved since she started drinking hot water with apple cider vinegar Constipation is better and denies any blood in the stool. On a micro dose of suboxone and trying to taper. Not taking Amitiza since it was causing diarrhea. Pt is accompanied by her GM. Worsening constipation for the past 3 months. Has a BM once a week and takes MOM when she starts getting bad stomach pains and unable to poop. Notes rectal bleeding every time she has a BM. Blood was bright red and mixed with the stool. after taking several doses of MOM, she gets diarrhea and does not see any blood. Has hard stools and has to disimpact by digital manipulation. Has tried stool softeners and Miralax which did not work. Has noted bad acid reflux for the past 2-3 weeks - can start in the middle of the night. Has nausea, regurgitation and burning in her throat. Has to cut food in smaller pieces due to swallowing difficulty. Complains of abdominal pain and is very constipated. Has a sharp stabbing pain when she tries to have a BM. Has a BM once a week and it hurts to have a BM. Stool are hards and notes some dark blood on wiping. Has issues going to the bathroom since childhood. Also has heartburn.? Stomach hurts every time she tries to eat. Has gained 40 lbs in the last 6 months. Patient denies major cardiac or pulmonary problems, loud snoring or sleep apnea Has trouble sleeping and only able to sleep 2 hrs at a time. Denies having any surgeries in the past. Takes Ibuprofen 4-5 times a week for migraine JAMES and joint pains. Denies being on chronic anticoagulation. Patient denies known family history of colon polyps, colon cancer or other GI malignancies. Lives by herself and has no children. 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 PAST EGD/COLONOSCOPY:? Never had an EGD or colon [facility] Medical History (Updated 05/04/23 @ 12:17 [facility] Vitamin D deficiency GERD (gastroesophageal reflux disease) Chronic constipation Anxiety and depression Drug abuse Opioid use disorder Depot contraception Scoliosis Sleep disturbance Surgical History No pertinent past surgical history Family History Father Alcoholism Mother No problems noted. Maternal Grandfather Brain tumor Sister No problems noted. Social History Household Members: None Housing: Apartment Alcohol intake: current Alcohol intake frequency: holidays/special occasions only Alcohol type: beer and wine Patient Tobacco Use Status: Former Tobacco user Cigarettes Per Day: 2 Years Smoked: 2 years e-Cigarette/Vaping Use: Currently Using service: No Current occupational status: employed Current occupation: N Current occupational exposures/hazards: No Cognitive needs: No Hearing needs: No Vision needs: No Female Reproductive History Menstrual Age of Menarche: 13 Review of Systems Const All systems reviewed & are unremarkable except as noted in HPI and below Physical Exam Vital Signs: Last Vital Signs Pulse 77 07/14/23 11:12 BP 108/66 07/14/23 11:12 BMI result Body Mass Index 27.4 Const General: healthy appearing and no acute distress Nutritional Appearance: overweight Orientation/consciousness: patient oriented x3 Limitations: no limitations HEENT Head: Yes normal to inspection Ears: hearing grossly normal bilaterally Eyes Sclerae: sclerae normal Pupils: Equal, round and reactive pupils present Neck Neck: Yes normal visual inspection Chest Chest palpation & inspection: normal inspection of the chest Resp Effort & Inspection: normal respiratory effort Auscultation: clear to auscultation bilaterally Cardio Palpation: normal PMI Rate: regular rate Rhythm: regular rhythm Heart sounds: S1 normal heart sound present, S2 normal heart sound present and no murmurs GI Palpation (GI): Soft to palpation, nontender and No hepatosplenomegaly present Auscultation: normal bowel sounds Rectal Exam - Female: deferred Skin General skin exam: no rashes or lesions noted Neuro General: patient oriented x3, gait normal and moves all extremities Cranial nerves: Yes Equal, round and reactive pupils present Psych Appearance: grossly normal Mental Status: mental status grossly normal Assessment & Plan Assessment & Plan (1) GERD (gastroesophageal reflux disease): Code(s): K21.9 - Gastro-esophageal reflux disease without esophagitis (2) Constipation: Code(s): K59.00 - Constipation, unspecified Plan 28 YF with hx of drug abuse, hepatitis C (treated successfully with Mavyret in 2019) and chronic constipation. Pt complains of abdominal pain associated with worsening constipation, wt gain and rectal bleeding associated with straining during a? BM. Pt was advised to take MOM followed by Shena every day for constipation. She will be scheduled for a follow-up appointment in 8 weeks. Pt was reminded to have labs checked - order placed by her PCP. ADDENDUM: KUB results were reviewed with the patient. Linaclotide has been working well - having a BM daily to every other day. Notes decrease in rectal bleeding Patient was advised to continue above medications and keep follow-up appointment in October 2019. She was seen at [facility] on 11/06/21 with abdominal pain, nausea and vomiting which lasted over a month. Unable to keep anything down. She started drinking 3-4 cups of hot water with lemon, apple cider vinegar, honey and cinnamon and she has been feeling better since and back to normal. Constipation is better and denies any blood in the stool. On a micro dose of suboxone and trying to taper. Not taking Amitiza since it was causing diarrhea. 03/03/23 Start Famotidine at bedtime for GERD symptoms Resume Linzess 72 mcg daily for constipation 07/14/23 OPTI greens and OPTI reds for bloating (supports immune system, contains digestive enzymes and probiotics) - helps with bloating. Symptoms improved and stopped taking Famotidine and Linzess Option for further evaluation with an EGD or barium swallow were reviewed with the pt. She will monitor her symptoms for now and may schedule after her next FU visit Pt was advised to FU in 6 months Coding Level of Care Code Est Pt Level 4 (22132) Diagnoses GERD (gastroesophageal reflux disease) K21.9 Constipation K59.00 Time Spent (min) 24
[2023-07-14 11:12] VITALS: BP 108/66; PULSE 77; BMI 27.4
== END 2023-07-14 12:11 | disposition home or self-care (01) ==
PROVIDERS: PCP Nurse Practitioner Family; Visit Provider Internal Medicine Gastroenterology
DX: K21.9 Gastro-esophageal reflux disease without esophagitis (principal); K59.00 Constipation, unspecified
CPT/HCPCS: 99214

== ENCOUNTER → 2023-07-14 11:03 | Outpatient (BNVA) | payer OTHER, SELFPAY | PROVIDERS: PCP Nurse Practitioner Family; Visit Provider Internal Medicine Gastroenterology | DX: K21.9 Gastro-esophageal reflux disease without esophagitis (principal); K59.00 Constipation, unspecified | CPT/HCPCS: 99212 ==

== ENCOUNTER 2023-07-19 07:54 | Outpatient (AMB) | payer OTHER, SELFPAY ==
--- NOTE | 2023-07-19 07:57 | MHC.OFFVIS ---
Intake Vital Signs 07/19/23 07:59 Height 5 ft 7 in Weight 170 lb BMI 26.6 BP 110/68 Intake Visit Reasons: Depo restart Intake Note: Wants to discuss other BC options Scribed for Carmenza Wilson, by Mike Kumar, medical attendant, on 07/19/2023 at 7:45 AM EST. I, Carmenza Wilson, have personally reviewed and agree with the information entered by the scribe. Allergies No Known Allergies [No Known Allergies*] Allergy (Verified 07/19/23 08:00) HPI HPI Comments History of Present Illness Details Faye is here today for a control consult. She is currently UTD on De Provera. She has experienced vaginal atrophy changes, not sexually active at this time and prefers no treatment. She wants to explore all her options. Next Depo is due 08/26/23. She prefers not to have any vaginal inserts/IUD's. She denies any contraindications to control such as: migraines with aura, history of DVT or pulmonary emboli, high blood pressure, liver disease, thrombolic disorders, Lupus, +ELYSE, or smoking. [facility] Medical History (Updated 05/04/23 @ 12:17 by Prem Mendieta, [facility] Vitamin D deficiency GERD (gastroesophageal reflux disease) Chronic constipation Anxiety and depression Drug abuse Opioid use disorder Depot contraception Scoliosis Sleep disturbance Surgical History No pertinent past surgical history Family History Father Alcoholism Mother No problems noted. Maternal Grandfather Brain tumor Sister No problems noted. Social History Household Members: None Housing: Apartment Alcohol intake: current Alcohol intake frequency: holidays/special occasions only Alcohol type: beer and wine Patient Tobacco Use Status: Former Tobacco user Cigarettes Per Day: 2 Years Smoked: 2 years e-Cigarette/Vaping Use: Currently Using service: No Current occupational status: employed Current occupation: N Current occupational exposures/hazards: No Cognitive needs: No Hearing needs: No Vision needs: No Female Reproductive History Menstrual Age of Menarche: 13 Review of Systems Const All systems reviewed & are unremarkable except as noted in HPI and below Reports as per HPI Eyes Reports as per HPI ENT Reports no additional complaints Card Reports as per HPI Resp Reports as per HPI GI Reports as per HPI Reports no additional complaints Musc Reports no additional complaints Skin/Breast Reports system reviewed and no additional complaints, except as documented Neuro Reports no additional complaints Psych Reports no additional complaints Endo Reports no additional complaints Kj/Lymph Reports no additional complaints Aller/Immun Reports no additional complaints Physical Exam Vital Signs: Last Vital Signs BP 110/68 07/19/23 07:59 BMI result Body Mass Index 26.6 Const General: cooperative, healthy appearing and well developed Assessment & Plan Assessment & Plan (1) control counseling: Code(s): Z30.09 - Encounter for other general counseling and advice on contraception (2) Vaginal atrophy: Code(s): N95.2 - Postmenopausal atrophic vaginitis Plan: Discussed: options for treatment, underlying causes. Declines treatment options today. Plan Consulted on control options. [place]ed the [facility] [place]. She would like to research her options, and discuss again for final decision at her next visit. She will return to office for decision making. Coding Level of Care Code Est Pt Level 3 (31266) Diagnoses control counseling Z30. Vaginal atrophy N95.2
[2023-07-19 07:59] VITALS: BP 110/68; BMI 26.6
== END 2023-07-19 08:37 | disposition home or self-care (01) ==
PROVIDERS: PCP Nurse Practitioner Family; Visit Provider Advanced Practice Midwife
DX: Z30.09 Encounter for other general counseling and advice on contraception (principal); N95.2 Postmenopausal atrophic vaginitis
CPT/HCPCS: 99213

== ENCOUNTER → 2023-07-19 07:54 | Outpatient (BNVA) | payer OTHER, SELFPAY | PROVIDERS: PCP Nurse Practitioner Family; Visit Provider Advanced Practice Midwife | DX: Z30.09 Encounter for other general counseling and advice on contraception (principal); N95.2 Postmenopausal atrophic vaginitis | CPT/HCPCS: 99212 ==

== ENCOUNTER 2023-08-05 13:01 | Outpatient (AMB) | payer OTHER, SELFPAY ==
--- NOTE | 2023-08-05 13:08 | A.OFFVIS_ITS ---
Intake Vital Signs 08/05/23 13:13 BP 118/72 Blood Pressure Location Lt radial Position Sitting Pulse 70 Pulse Source Pulse Oximeter Pulse Oximetry (%) 96 Oxygen Delivery Method Room Air Intake Visit Reasons: MAT Visit Intake Note: the patient presents for a mat visit Jewel Sorter Required: No Allergies No Known Allergies [No Known Allergies*] Allergy (Verified 08/05/23 13:14) Do you need a note to return to daycare/school/sports/work: No HPI MAT Visit HPI Details Patient presents for OUD treatment follow up Use has increased as her dealer was recently arrested and she has had to buy from someone new and the product is not the same. She is feeling frustrated by this. Discussed starting methadone with a plan to transition to buprenorphine. Patient agreeable. [facility] Medical History (Updated 05/04/23 @ 12:17 by Prem Menditea, [facility]) Vitamin D deficiency GERD (gastroesophageal reflux disease) Chronic constipation Anxiety and depression Drug abuse Opioid use disorder Depot contraception Scoliosis Sleep disturbance Surgical History No pertinent past surgical history Family History Father Alcoholism Mother No problems noted. Maternal Grandfather Brain tumor Sister No problems noted. Social History Household Members: None Housing: Apartment Alcohol intake: current Alcohol intake frequency: holidays/special occasions only Alcohol type: beer and wine Patient Tobacco Use Status: Former Tobacco user Cigarettes Per Day: 2 Years Smoked: 2 years e-Cigarette/Vaping Use: Currently Using service: No Current occupational status: employed Current occupation: [employer] Current occupational exposures/hazards: No Cognitive needs: No Hearing needs: No Vision needs: No Female Reproductive History Menstrual Age of Menarche: 13 Review of Systems Const Reports as per HPI and Reports no additional complaints Physical Exam Vital Signs: Last Vital Signs Pulse 70 08/05/23 13:13 BP 118/72 08/05/23 13:13 Pulse Ox 96 08/05/23 13:13 Oxygen Delivery Method Room Air 08/05/23 13:13 Const General: cooperative, healthy appearing and well developed Assessment & Plan Assessment & Plan (1) Opioid use disorder: Code(s): F11.99 - Opioid use, unspecified with unspecified opioid-induced disorder Plan: * this food writer called [facility] and discussed with provider at [facility], agreeable to take patient on for methadone start with goal of bupre transition * patient to call [facility] to schedule intake for methadone start * will call office and check in Coding Level of Care Code Est Pt Level 4 (35725) Diagnoses Opioid use disorder F11.99
[2023-08-05 13:13] VITALS: BP 118/72; PULSE 70; O2SAT 96
== END 2023-08-05 14:24 | disposition home or self-care (01) ==
PROVIDERS: PCP Nurse Practitioner Family; Visit Provider Nurse Practitioner Psychiatric/Mental Health
DX: F11.99 Opioid use, unspecified with unspecified opioid-induced disorder (principal)
CPT/HCPCS: 99214

== ENCOUNTER → 2023-08-05 13:01 | Outpatient (BNVA) | payer OTHER, SELFPAY | PROVIDERS: PCP Nurse Practitioner Family; Visit Provider Nurse Practitioner Psychiatric/Mental Health | DX: F11.20 Opioid dependence, uncomplicated (principal) | CPT/HCPCS: 99212 ==

== ENCOUNTER 2023-08-24 15:31 | Outpatient (AMB) | payer OTHER, SELFPAY ==
[2023-08-24 15:41] VITALS: BP 102/64; BMI 26.6
--- NOTE | 2023-08-24 15:41 | MHC.OFFVIS ---
Intake Vital Signs 08/24/23 15:41 Height 5 ft 7 in Weight 170 lb BMI 26.6 BP 102/64 Intake Visit Reasons: BC Consult Allergies No Known Allergies [No Known Allergies*] Allergy (Verified 08/24/23 15:41) HPI HPI Comments History of Present Illness Details Is here for control counseling she was previously seen and discussed methods for changing from the Depo-Provera. She has chosen to go on the extended OCP packs. She denies any contraindications to control such as: migraines with aura, history of DVT or pulmonary emboli, high blood pressure, liver disease, thrombolic disorders, Lupus, +ELYSE, breast cancer, or smoking. [facility] Medical History (Updated 05/04/23 @ 12:17 by Prem Mendieta, [facility]) Vitamin D deficiency GERD (gastroesophageal reflux disease) Chronic constipation Anxiety and depression Drug abuse Opioid use disorder Depot contraception Scoliosis Sleep disturbance Surgical History No pertinent past surgical history Family History Father Alcoholism Mother No problems noted. Maternal Grandfather Brain tumor Sister No problems noted. Social History Household Members: None Housing: Apartment Alcohol intake: current Alcohol intake frequency: holidays/special occasions only Alcohol type: beer and wine Patient Tobacco Use Status: Former Tobacco user Cigarettes Per Day: 2 Years Smoked: 2 years e-Cigarette/Vaping Use: Currently Using service: No Current occupational status: employed Current occupation: N Current occupational exposures/hazards: No Cognitive needs: No Hearing needs: No Vision needs: No Female Reproductive History Menstrual Age of Menarche: 13 Physical Exam Vital Signs: Last Vital Signs BP 102/64 08/24/23 15:41 BMI result Body Mass Index 26.6 Assessment & Plan Assessment & Plan (1) control counseling: Code(s): Z30.09 - Encounter for other general counseling and advice on contraception Plan Discussed: Discontinue Depo-Provera, was due this Tuesday. Start to Jolessa this Tuesday instructions, use, warnings all reviewed. control hormone use warnings: go to ER if and loss of vision, blindness, severe headache, chest pain or difficulty breathing, severe abdominal pain, or any pain or swelling in an extremity. Return to the office in 3 months for a pill check. Condoms when sexually active. Medications: New levonorgestrel-ethinyl estrad 0.15 mg-30 mcg (91) (Jolessa) 1 tab PO DAILY 91 ea 3RF Discontinued medroxyprogesterone (Depo-Provera) Discontinued Reason: Patient Completed Course 150 mg IM Q12W 1 mL 4RF Coding Level of Care Code Est Pt Level 3 (22213) Diagnoses control counseling Z30.09
== END 2023-08-24 16:15 | disposition home or self-care (01) ==
LOC: HO.HWS 15:31
PROVIDERS: PCP Nurse Practitioner Family; Visit Provider Advanced Practice Midwife
DX: Z30.09 Encounter for other general counseling and advice on contraception (principal)
CPT/HCPCS: 99213

== ENCOUNTER → 2023-08-24 15:31 | Outpatient (BNVA) | payer OTHER, SELFPAY | PROVIDERS: PCP Nurse Practitioner Family; Visit Provider Advanced Practice Midwife | DX: Z30.09 Encounter for other general counseling and advice on contraception (principal) | CPT/HCPCS: 99212 ==

== ENCOUNTER 2023-09-01 08:45 | Outpatient (AMB) | payer OTHER, SELFPAY ==
--- NOTE | 2023-09-01 08:49 | MHC.PC.OV ---
Vital Signs 09/01/23 08:52 Height 5 ft 7 in Weight 169 lb BMI 26.5 BP 110/76 Blood Pressure Location Lt brachial Position Sitting Intake Visit Reasons: 4 Month follow up Intake Note: Patient here for 4 month follow up and would like to be tested for strep as she has been having a sore throat and congestion since last tuesday. Allergies No Known Allergies [No Known Allergies*] Allergy (Verified 09/01/23 08:53) Medication List - Last Reconciled 09/01/23 by DELFINA Amador clonidine HCl 0.1 mg PO BEDTIME gabapentin 300 mg PO BID 30 days hydroxyzine pamoate (Vistaril) 50 mg (2 x 25 mg) PO BEDTIME PRN levonorgestrel-ethinyl estrad 0.15 mg-30 mcg (91) (Jolessa) 1 tab PO DAILY methadone (Methadone Intensol) 50 mg PO DAILY Tobacco use date assessed: 09/01/23 Dental Screening Dental Screen Date: 09/01/23 Did you have a dental visit in the last 12 months?: Yes Did you have a dental problem in the last 6 months where you did not have access to dental care?: No Was dental information given to patient?: Patient has dentist HPI 4 Month follow up HPI Details Pt c/o sore throat since Tuesday. She reports loss of taste and congestion as well. Pt has had 2 negative COVID tests. Strep test is negative today. Will swab for COVID/flu/RSV. Denies fever, chills, and dizziness. Hx of drug abuse. Pt is requesting certain bloodwork for the methadone clinic she goes to, will order. [facility] Medical History (Updated 09/01/23 @ 09:19 by DELFINA Amador) Vitamin D deficiency GERD (gastroesophageal reflux disease) Chronic constipation Anxiety and depression Drug abuse Opioid use disorder Depot contraception Scoliosis Sleep disturbance Surgical History No pertinent past surgical history Family History Father Alcoholism Mother No problems noted. Maternal Grandfather Brain tumor Sister No problems noted. Social History (Reviewed 09/01/23 @ 09:45 by DELFINA AmadorCathryn Household Members: None Housing: Apartment Alcohol intake: current Alcohol intake frequency: holidays/special occasions only Alcohol type: beer and wine Patient Tobacco Use Status: Former Tobacco user Cigarettes Per Day: 2 Years Smoked: 2 years e-Cigarette/Vaping Use: Currently Using service: No Current occupational status: employed Current occupation: [employer] Current occupational exposures/hazards: No Cognitive needs: No Hearing needs: No Vision needs: No Female Reproductive History Menstrual Age of Menarche: 13 Questionnaire Thrive Questionnaire Date Thrive assessed: 07/13/22 AUDIT C Alcohol Use Questionnaire (AUDIT-C) 1. How often do you have a drink containing alcohol?: Monthly or less 2. How many drinks containing alcohol do you have on a typical day when you are drinking?: 1 or 2 3. How often do you have six or more drinks on one occasion?: Never Total Score: 1 Score Reviewed/Action Taken: No ZAINAB-7 AMB Questionnaire ZAINAB-7 Date ZAINAB - 7 assessed: 07/13/22 Source: Developed by Drs. Rogerio Nguyễn, Anuradha Haddad, Srini Bonilla and colleagues, with an educational romie from [employer]. Review of Systems Const Reports as per HPI Physical exam (Primary Care) Vital Signs: Last Vital Signs BP 110/76 09/01/23 08:52 BMI result Body Mass Index 26.5 Tobacco/Smoking Status: Tobacco use Status Tobacco use date assessed 09/01/23 09/01/23 08:59 Patient Tobacco Use Status Former Tobacco user 09/01/23 08:51 e-Cigarette/Vaping Use Currently Using 09/01/23 08:51 Thrive Assessment: Date of Thrive Assessment Date Thrive assessed 07/13/22 09/01/23 08:51 Const General: cooperative Orientation/consciousness: patient oriented x3 HENMT Other: posterior pharynx slightly erythematous Neck Neck: Yes no lymphadenopathy Resp Effort & Inspection: normal respiratory effort Auscultation: clear to auscultation bilaterally Cardio Rate: regular rate Rhythm: regular rhythm Heart sounds: S1 normal heart sound present and S2 normal heart sound present Neuro General: patient oriented x3 Psych Appearance: grossly normal Mental Status: mental status grossly normal Speech and movement: Normal speech and movement present Affect: normal affect Attitude: cooperative Thought process: Normal thought process present Thought content: Normal thought content present Insight: Good insight present (Psych) Judgement: Good judgement present (Psych) Results AMB Rapid Strep AMB Rapid Strep Negative Last Edit by DANIEL Gomes on 09/01/23 09:20 Results Reviewed Results Reviewed: Laboratory Last Values Strep Scn Rapid Clinic Negative 09/01/23 09:18 Assessment and Plan Assessment & Plan (1) Drug abuse: Code(s): F19.10 - Other psychoactive substance abuse, uncomplicated Plan: Labs ordered (2) Illness: Code(s): R69 - Illness, unspecified Plan: Swabbed for strep and COVID/flu/RSV (3) Pharyngitis: Code(s): J02.9 - Acute pharyngitis, unspecified Plan The patient agreed to the use of a medical records technician for this encounter. Scribed for BHAVESH Bruno by Mary Kay Mesa medical records technician, on 09/01/2023 at 09:10 EST. Orders: Orders Complete Blood Count Auto Diff Today F19.10 - Other psychoactive substance abuse, uncomplicated Comprehensive Met. Panel Today F19.10 - Other psychoactive substance abuse, uncomplicated Hepatitis C Viral Load Today F19.10 - Other psychoactive substance abuse, uncomplicated SARS-CoV2/FLU/RSV Today R69 - Illness, unspecified AMB Rapid Strep Screen Today Z13.9 - Encounter for screening, unspecified Hepatitis A,B,C Profile Today F19.10 - Other psychoactive substance abuse, uncomplicated Syphilis Screen Today F19.10 - Other psychoactive substance abuse, uncomplicated HIV Ab/Ag Today F19.10 - Other psychoactive substance abuse, uncomplicated SARS-CoV2/FLU/RSV Today R09.89 - Other specified symptoms and signs involving the circulatory and respiratory systems Coding Level of Care Code Est Pt Level 3 (54947) Diagnoses Drug abuse F19.10 Illness R69 Pharyngitis J02.9
[2023-09-01 08:52] VITALS: BP 110/76; BMI 26.5
== END 2023-09-01 09:29 | disposition home or self-care (01) ==
PROVIDERS: PCP Nurse Practitioner Family; Visit Provider Nurse Practitioner Family
DX: F19.10 Other psychoactive substance abuse, uncomplicated (principal); J02.9 Acute pharyngitis, unspecified; R69 Illness, unspecified
CPT/HCPCS: 87880; 99213

== ENCOUNTER 2023-09-01 09:18 | Outpatient (REF) | payer OTHER, SELFPAY | END 2023-09-01 09:19 | disposition home or self-care (01) | LOC: HO.LNP 09:18 | PROVIDERS: Visit Provider Nurse Practitioner Family | DX: Z13.89 Encounter for screening for other disorder (principal) ==

== ENCOUNTER 2023-09-01 09:30 | Outpatient (REF) | payer OTHER, SELFPAY ==
[2023-09-01 11:26] LABS: MANUAL DIFF FLAG NO
[2023-09-01 11:29] LABS: Basophils Absolute Auto 0.1 X10*3/uL (0.0-0.2); Basophils Percent Auto 0.6 % (0-2); Eosinophils Absolute Auto 0.3 X10*3/uL (0.0-0.4); Eosinophils Percent Auto 4.1 % (0-4); Hematocrit 44.6 % (37.0-47.0); Hemoglobin 14.8 g/dl (12.0-16.0); Imm Gran Abs Auto 0.05 X10*3/uL (0.00-0.03); Imm Gran Pct Auto 0.6 % (0.0-0.4); Lymphocytes Absolute Auto 2.7 X10*3/uL (1.2-4.9); Lymphocytes Percent Auto 32.1 % (20-40); Mean Corpuscular HGB Conc 33.2 g/dl (31.0-35.0); Mean Corpuscular Volume 84.5 fL (80.0-98.0); Monocytes Absolute Auto 0.6 X10*3/uL (0.1-1.2); Monocytes Percent Auto 6.9 % (2-11); Neutrophils Absolute Auto 4.7 x10*3/uL (2.0-8.3); Neutrophils Percent Auto 55.7 % (45-73); Platelet Count 271 X10*3/uL (160-400); Red Blood Count 5.28 X10*6/uL (4.20-5.50); Red Cell Distribution Width 13.1 % (11.0-16.0); White Blood Count 8.4 X10*3/uL (4.8-10.8)
[2023-09-01 12:09] LABS: Alanine Aminotransferase 25 U/L (0-31); Albumin Level 4.4 g/dL (3.5-5.0); Alkaline Phosphatase 90 U/L (39-117); Anion Gap 13 (12-20); Aspartate Amino Transferase 18 U/L (5-31); Bilirubin Total 0.2 mg/dL (0.0-1.0); Blood Urea Nitrogen 9 mg/dL (9-16); Calcium 10.8 mg/dL (8.4-10.2); Carbon Dioxide 27 mmol/L (22-29); Chloride 106 mmol/L (96-108); Estimated Glomerular Filt Rate > 60; Glucose Random 74 mg/dL (60-115); Potassium 3.9 mmol/L (3.3-5.1); Sodium 142 mmol/L (135-145)
[2023-09-01 12:32] LABS: HBS Num1 10.24 mIU/mL (0-7.99); HBc Num1 0.31 S/CO (0.00-0.79); HBsAGNum1 0.26 S/CO (0.00-0.99); HIV AB/AG Nonreactive (Nonreactive); HIV Num 1 0.09 S/CO (0.00-0.99); Hepatitis A Antibody IgM 0.62 Index (0-0.79); Hepatitis B Core Antibody Nonreactive (Nonreactive); Hepatitis B Surface Antigen Negative (Negative); ~HepC Num1 3.83 S/CO (0.00-0.79); ~Hepatitis A Antibody IgM Nonreactive (Nonreactive); ~Hepatitis C Antibody Reactive (Nonreactive)
[2023-09-01 12:34] LABS: Syphilis Screen Reactive (Nonreactive)
[2023-09-01 13:30] LABS: HBS Num2 10.43 mIU/mL (0-7.99); HBS Num3 10.22 mIU/mL (0-7.99); ~Hepatitis B Surface Antibody GRAYZONE (Nonreactive)
[2023-09-08 14:43] LABS: RPR Quantitative Reactive 1:2 (Nonreactive); T.Pallidum Particle Agg Test Reactive (Nonreactive)
== END 2023-09-01 09:31 | disposition home or self-care (01) ==
LOC: HO.HMGCLDS 09:30
PROVIDERS: PCP Nurse Practitioner Family; Visit Provider Nurse Practitioner Family
DX: F19.10 Other psychoactive substance abuse, uncomplicated (principal); R69 Illness, unspecified; Z11.52 Encounter for screening for COVID-19; Z20.828 Contact with and (suspected) exposure to other viral communicable diseases; Z11.3 Encounter for screening for infections with a predominantly sexual mode of transmission; Z11.59 Encounter for screening for other viral diseases
CPT/HCPCS: 0241U; 36415; 80053; 85025; 86592; 86704; 86706; 86709; 86780; 86803; 87340; 87389; 87522

== ENCOUNTER 2023-10-04 14:47 | Outpatient (AMB) | payer OTHER, SELFPAY ==
--- NOTE | 2023-10-04 14:55 | MHC.OFFVIS ---
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 Doing well with no concerns. Well on her control, denies any risk factors today She tries to eat healthy and stays active with exercise. Regular monthly menses. Currently is not sexually active for several years. She denies vaginal itching and irritation. STI screening offered; she declines. Denies family history of breast, ovarian or colon cancer. Last pap smear 2020, negative. [facility] Medical History Syphilis Vitamin D deficiency GERD (gastroesophageal reflux disease) Chronic constipation Anxiety and depression Drug abuse Opioid use disorder Depot contraception Scoliosis Sleep disturbance Surgical History No pertinent past surgical history Family History Father Alcoholism Mother No problems noted. Maternal Grandfather Brain tumor Sister No problems noted. Social History Household Members: None Housing: Apartment Alcohol intake: current Alcohol intake frequency: holidays/special occasions only Alcohol type: beer and wine Patient Tobacco Use Status: Former Tobacco user Cigarettes Per Day: 2 Years Smoked: 2 years e-Cigarette/Vaping Use: Currently Using service: No Current occupational status: employed Current occupation: N Current occupational exposures/hazards: No Cognitive needs: No Hearing needs: No Vision needs: No Female Reproductive History Menstrual Age of Menarche: 13 control method: pills Total pregnancies: 0 Date of last pap smear: 07/22/21 (neg) Review of Systems Const All systems reviewed & are unremarkable except as noted in HPI and below Reports as per HPI Eyes Reports no additional complaints ENT Reports no additional complaints Card Reports no additional complaints Resp Reports no additional complaints GI Reports as per HPI and Reports no additional complaints Reports as per HPI Musc Reports no additional complaints Skin/Breast Reports as per HPI Neuro Reports no additional complaints Psych Reports no additional complaints Endo Reports no additional complaints Kj/Lymph Reports no additional complaints Aller/Immun Reports no additional complaints Physical Exam Vital Signs: Last Vital Signs BP 114/70 10/04/23 14:56 BMI result Body Mass Index 26.6 Const General: cooperative, healthy appearing, no acute distress, well developed and alert Orientation/consciousness: patient oriented x3 HEENT Head: Yes normal to inspection Eyes General: appearance normal, both eyes and all related structures Neck Neck: Yes normal visual inspection Thyroid: Thyroid normal Chest Chest palpation & inspection: normal inspection of the chest and other (no puckering, dimpling, peau de orange, retraction, discharge, masses) Breast/axilla inspection: normal inspection of the breasts Breast/axilla palpation: normal palpation of the breasts Resp Effort & Inspection: normal respiratory effort GI Inspection: Yes normal to inspection Palpation (GI): Soft to palpation Rectal Exam - Female: deferred Other: Tense with the exam. General: Yes bladder normal to palpation External Female Exam: normal external appearance and normal appearance of the urethra Speculum Exam - Vagina: normal appearance of the vagina, normal palpation and normal vaginal discharge Speculum Exam - Cervix: normal appearance of the cervix and normal palpation Bimanual exam- vagina & uterus: normal bimanual exam, normal palpation, uterine size normal, bladder normal to palpation, normal palpation and non-tender Bimanual Exam- Adnexa, other: no masses Skin General skin exam: no rashes or lesions noted Rashes: no rashes Neuro General: patient oriented x3 Cognition (Neuro): normal cognition Extrem General: Yes normal to inspection Psych Attitude: cooperative Thought process: Normal thought process present Assessment & Plan Assessment & Plan (1) Well woman exam with routine gynecological exam: Code(s): Z01.419 - Encounter for gynecological examination (general) (routine) without abnormal findings Plan: Discussed: Current recommendations for pap smears per ASCCP guidelines. Breast awareness and periodic breast exams. Maintain a healthy lifestyle including a well balanced diet and routine exercise. Use condoms for STI prevention. Patient verbalizes understanding and agrees to the plan of care. She was given opportunity to ask questions and all questions were answered to the best of my ability. RTO in one year for annual organic search lead examination. This note is constructed using voice recognition software. While every effort has been made to ensure accuracy, digital pre press operator errors may have been included. Orders: Orders Pap Smear Today Z01.419 - Encounter for gynecological examination (general) (routine) without abnormal findings Medications: Refilled levonorgestrel-ethinyl estrad 0.15 mg-30 mcg (91) (Alexis) 1 tab PO DAILY 91 ea 4RF Coding Level of Care Code Est Pt Prev Care 18-39y(84894) Diagnoses Well woman exam with routine gynecological exam Z01.419
[2023-10-04 14:56] VITALS: BP 114/70; BMI 26.6
== END 2023-10-04 15:53 | disposition home or self-care (01) ==
LOC: HO.HWS 14:47
PROVIDERS: Visit Provider Advanced Practice Midwife
DX: Z01.419 Encounter for gynecological examination (general) (routine) without abnormal findings (principal)
CPT/HCPCS: 99395

== ENCOUNTER 2023-10-04 14:47 | Outpatient (REF) | payer OTHER, SELFPAY | END 2023-10-04 14:48 | disposition home or self-care (01) | LOC: HO.LNP 14:47 | PROVIDERS: Visit Provider Advanced Practice Midwife | DX: Z01.419 Encounter for gynecological examination (general) (routine) without abnormal findings (principal) | CPT/HCPCS: 88142; 99395 ==

== ENCOUNTER 2023-11-23 15:24 | Outpatient (AMB) | payer OTHER, SELFPAY ==
--- NOTE | 2023-11-23 15:34 | MHC.OFFVIS ---
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 She is taking Jolessa and doing well. She denies any contraindications to control such as: migraines with aura, history of DVT or pulmonary emboli, high blood pressure, liver disease, thrombolic disorders, Lupus, +ELYSE, breast cancer, or smoking. [facility]LY [facility], [facility] Medical History Syphilis Vitamin D deficiency GERD (gastroesophageal reflux disease) Chronic constipation Anxiety and depression Drug abuse Opioid use disorder Depot contraception Scoliosis Sleep disturbance Surgical History No pertinent past surgical history Family History Father Alcoholism Mother No problems noted. Maternal Grandfather Brain tumor Sister No problems noted. Social History Household Members: None Housing: Apartment Alcohol intake: current Alcohol intake frequency: holidays/special occasions only Alcohol type: beer and wine Patient Tobacco Use Status: Former Tobacco user Cigarettes Per Day: 2 Years Smoked: 2 years e-Cigarette/Vaping Use: Currently Using service: No Current occupational status: employed Current occupation: N Current occupational exposures/hazards: No Cognitive needs: No Hearing needs: No Vision needs: No Female Reproductive History Menstrual Age of Menarche: 13 control method: pills Review of Systems Const All systems reviewed & are unremarkable except as noted in HPI and below Endo Reports no additional complaints Physical Exam Vital Signs: Last Vital Signs BP 102/66 11/23/23 15:36 BMI result Body Mass Index 26.6 Const General: cooperative, healthy appearing and no acute distress Psych Appearance: well kempt Attitude: cooperative Thought process: Normal thought process present Assessment & Plan Assessment & Plan (1) Contraceptive surveillance: Code(s): Z30.40 - Encounter for surveillance of contraceptives, unspecified Qualifiers: Contraceptive type: pill Qualified Code(s): Z30.41 - Encounter for surveillance of contraceptive pills Plan Continue with OCP use. Patient has refills. AWS SOLUTION ARCHITECT annual booked September 2024. control hormone use warnings: go to ER if and loss of vision, blindness, severe headache, chest pain or difficulty breathing, severe abdominal pain, or any pain or swelling in an extremity. This note is constructed using voice recognition software. While every effort has been made to ensure accuracy, glass ribbon machine operator errors may have been included. Coding Level of Care Code Est Pt Level 3 (40332) Diagnoses Encounter for surveillance of contraceptive pills Z30.41 Contraceptive type: pill
[2023-11-23 15:36] VITALS: BP 102/66; BMI 26.6
== END 2023-11-23 16:10 | disposition home or self-care (01) ==
LOC: HO.HWS 15:24
PROVIDERS: PCP Nurse Practitioner Family; Visit Provider Advanced Practice Midwife
DX: Z30.41 Encounter for surveillance of contraceptive pills (principal)
CPT/HCPCS: 99213

== ENCOUNTER → 2023-11-23 15:24 | Outpatient (BNVA) | payer OTHER, SELFPAY | PROVIDERS: PCP Nurse Practitioner Family; Visit Provider Advanced Practice Midwife | DX: Z30.41 Encounter for surveillance of contraceptive pills (principal) | CPT/HCPCS: 99212 ==

== ENCOUNTER 2024-01-02 13:11 | Outpatient (AMB) | payer OTHER, SELFPAY ==
--- NOTE | 2024-01-02 13:16 | MHC.PC.OV ---
Vital Signs 01/02/24 13:19 Height 5 ft 7 in Weight 177 lb BMI 27.7 BP 112/70 Blood Pressure Location Rt brachial Position Sitting Pulse 76 Pulse Source Pulse Oximeter Pulse Oximetry (%) 98 Oxygen Delivery Method Room Air Intake Visit Reasons: Annual PE Intake Note: Patient here for physical exam. pt would like to talk about stomach pain that she has been waking up with daily which goes away throughout the day. she would also like to talk about panic attacks that are happening more frequently. Allergies No Known Allergies [No Known Allergies*] Allergy (Verified 01/02/24 13:34) Medication List - Last Reconciled 01/02/24 by DELFINA Amador gabapentin 300 mg PO BID 30 days hydroxyzine pamoate (Vistaril) 50 mg (2 x 25 mg) PO BEDTIME PRN lansoprazole (Prevacid SoluTab) 15 mg PO DAILY 30 days levonorgestrel-ethinyl estrad 0.15 mg-30 mcg (91) (Jolessa) 1 tab PO DAILY methadone (Methadone Intensol) 140 mg PO DAILY nicotine 1 patch transdermal DAILY trazodone 50 mg PO BEDTIME PRN 30 days Tobacco use date assessed: 09/01/23 Dental Screening Dental Screen Date: 09/01/23 HPI Annual PE HPI Details Pt is here for a PE. Will order labs. 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 Pt c/o abdominal pain. She reports that this has been present for 1 month. Pt has also been decreasing her methadone for 1 month. Pt sees GI, recommended she speak with them about this, though ? related to methadone tapering. Pt is on a waitlist for a psychiatrist. She sees a therapist who is apparently requesting that I prescribe ativan for the pt. Will have pt's therapist contact our office to give his written opinion on this. [facility] Medical History Syphilis Vitamin D deficiency GERD (gastroesophageal reflux disease) Chronic constipation Anxiety and depression Drug abuse Opioid use disorder Depot contraception Scoliosis Sleep disturbance Surgical History No pertinent past surgical history Family History Father Alcoholism Mother No problems noted. Maternal Grandfather Brain tumor Sister No problems noted. Social History Household Members: None Housing: Apartment Alcohol intake: current Alcohol intake frequency: holidays/special occasions only Alcohol type: beer and wine Patient Tobacco Use Status: Former Tobacco user Cigarettes Per Day: 2 Years Smoked: 2 years e-Cigarette/Vaping Use: Currently Using service: No Current occupational status: employed Current occupation: [employer] Current occupational exposures/hazards: No Cognitive needs: No Hearing needs: No Vision needs: No Female Reproductive History Menstrual Age of Menarche: 13 Questionnaire PHQ-9 Over the last 2 weeks, how often have you been bothered by any of the following problems? 1. Little interest or pleasure in doing things: several days 2. Feeling down, depressed, or hopeless: several days 3. Trouble falling or staying asleep, or sleeping too much: nearly every day 4. Feeling tired or having little energy: more than half the days 5. Poor appetite or overeating: several days 6. Feeling bad about yourself - or that you are a failure or have let yourself or your family down: not at all 7. Trouble concentrating on things, such as reading the newspaper or watching television: several days 8. Moving or speaking so slowly that other people could have noticed. Or the opposite - being so fidgety or restless that you have been moving around a lot more than usual: not at all 9. Thoughts that you would be better off or of hurting yourself in some way: not at all Total score: 9 Depression Screening Interpretation: Negative Depression Screening Done: Yes 71851 - PHQ-9 Billing: Yes Source: Developed by Drs. Rogerio Nguyễn, Anuradha Haddad, Srini Bonilla and colleagues, with an educational romie from [employer]. Thrive Questionnaire Date Thrive assessed: 01/02/24 I am a: Patient What is your living situation today?: I have a steady place to live Within the past 12 months, did the food you bought not last and you didn't have the money to get more?: Never true Within the past 12 months, did you worry whether your food would run out before you got money to buy more?: Never true Do you have trouble paying for medicines?: No Do you have trouble getting transportation to medical appointments?: No Do you have trouble paying your heating and electricity bill?: No Do you have trouble taking care of your child, family member or friend?: No Do you have trouble with day-to-day activities such as bathing, preparing meals, shopping, managing finances, etc.?: No Are you currently unemployed and looking for a job?: No Are you interested in more education?: No Currently or been in a relationship where the following occur: I choose not to answer this question THRIVE Score: 0 AUDIT C Alcohol Use Questionnaire (AUDIT-C) 1. How often do you have a drink containing alcohol?: 2-4 times a month 2. How many drinks containing alcohol do you have on a typical day when you are drinking?: 1 or 2 3. How often do you have six or more drinks on one occasion?: Less than monthly Total Score: 3 Score Reviewed/Action Taken: Yes ZAINAB-7 AMB Questionnaire ZAINAB-7 Date ZAINAB - 7 assessed: 07/13/22 Feeling nervous, anxious, or on edge: 2 = More than half the days Not being able to stop or control worryin = More than half the days Worrying too much about different things: 2 = More than half the days Trouble relaxin = Nearly every day Being so restless that it is hard to sit still: 1 = Several days Becoming easily annoyed or irritable: 2 = More than half the days Feeling afraid as if something awful might happen: 0 = Not at all Total ZAINAB-7 score (0-4 normal; 5-9 mild; 10-14 moderate; 15-21 severe): 12 Source: Developed by Drs. Rogerio Nguyễn, Anuradha Haddad, Srini Bonilla and colleagues, with an educational romie from [employer]. ZAINAB-7 Assessment Billing ZAINAB-7 Assessment Tool: ZAINAB-7 Assessment 43621 Review of Systems Const Denies chills and Denies fever(s) Eyes Denies blurry vision ENT Denies vertigo, Denies dizziness and Denies sore throat Card Denies chest pain at rest, Denies chest pain with activity, Denies diaphoresis, Denies dyspnea and Denies dyspnea on exertion Resp Denies cough, Denies dyspnea, Denies dyspnea on exertion and Denies wheezing GI Reports abdominal pain, Denies melena, Denies hematochezia, Denies constipation, Denies diarrhea and Denies loose stools Denies hematuria Musc Denies numbness and Denies tingling Skin/Breast Denies lesions Neuro Denies vertigo, Denies dizziness, Denies numbness and Denies tingling Psych Denies anxiety, Denies depression, Denies homicidal ideation, Denies suicidal ideation and Denies other (substance abuse) Aller/Immun Denies wheezing Physical exam (Primary Care) Vital Signs: Last Vital Signs Pulse 76 01/02/24 13:19 BP 112/70 01/02/24 13:19 Pulse Ox 98 01/02/24 13:19 Oxygen Delivery Method Room Air 01/02/24 13:19 BMI result Body Mass Index 27.7 Tobacco/Smoking Status: Tobacco use Status Tobacco use date assessed 09/01/23 01/02/24 13:17 Patient Tobacco Use Status Former Tobacco user 01/02/24 13:17 e-Cigarette/Vaping Use Currently Using 01/02/24 13:17 PHQ-9: PHQ-9 Score PHQ-9: Total score 9 01/02/24 13:28 Depression Screening Interpretation: Negative Thrive Assessment: Date of Thrive Assessment Date Thrive assessed 01/02/24 01/02/24 13:28 Currently or been in a relationship where the following occur: I choose not to answer this question Const General: cooperative Nutritional Appearance: well nourished Orientation/consciousness: patient oriented x3 HENMT Head: Yes normal to inspection, Yes normocephalic and Yes atraumatic Ears: TM's normal bilaterally Eyes General: appearance normal, both eyes and all related structures Alignment and Position: alignment normal and position normal Neck Neck: Yes normal visual inspection and Yes no lymphadenopathy Thyroid: Thyroid normal Resp Effort & Inspection: normal respiratory effort Auscultation: clear to auscultation bilaterally Cardio Rate: regular rate Rhythm: regular rhythm Heart sounds: S1 normal heart sound present, S2 normal heart sound present and no murmurs GI Palpation (GI): Soft to palpation and nontender Auscultation: normal bowel sounds Skin Rashes: no rashes Neuro General: patient oriented x3, moves all extremities, no focal motor deficits and deep tendon reflexes 2+ bilaterally Romberg Test: Negative Psych Appearance: grossly normal Mental Status: mental status grossly normal Speech and movement: Normal speech and movement present Affect: normal affect Attitude: cooperative Thought process: Normal thought process present Thought content: Normal thought content present Insight: Good insight present (Psych) Judgement: Good judgement present (Psych) Assessment and Plan Assessment & Plan (1) Physical exam: Code(s): Z00.00 - Encounter for general adult medical examination without abnormal findings (2) Panic attacks: Code(s): F41.0 - Panic disorder [episodic paroxysmal anxiety] Plan: pt's therapist will contact me with his opinion on med management. Pt is on the psychiatrist list Plan The patient agreed to the use of a director biomedical engineering for this encounter. Scribed for DELFINA Bruno by Mary Kay Mesa director biomedical engineering, on 01/02/2024 at 13:35 EST. Coding Level of Care Code Est Pt Prev Care 18-39y(44313) Diagnoses Physical exam Z00.00 Panic attacks F41.0 Additional Codes ZAINAB-7 Assessment Billing - ZAINAB-7 Assessment Tool: ZAINAB-7 Assessment 13689 ([id number])
[2024-01-02 13:19] VITALS: BP 112/70; PULSE 76; O2SAT 98; BMI 27.7
== END 2024-01-02 13:52 | disposition home or self-care (01) ==
PROVIDERS: PCP Nurse Practitioner Family; Visit Provider Nurse Practitioner Family
DX: Z00.00 Encounter for general adult medical examination without abnormal findings (principal); F41.0 Panic disorder [episodic paroxysmal anxiety]
CPT/HCPCS: 99395

== ENCOUNTER 2024-01-06 09:24 | Outpatient (AMB) | payer OTHER, SELFPAY ==
--- NOTE | 2024-01-06 09:25 | A.OFFVISCC_ITS ---
Intake Visit Reasons: Telehealth Allergies No Known Allergies [No Known Allergies*] Allergy (Verified 01/02/24 13:34) HPI HPI Telehealth: Details: Patient presents for telehealth check in 2 months of no opiate use methadone dose 130--tapering now feels very good well supported COUNT INCLUDES THE [facility] Medical History (Updated 01/09/24 @ 22:14 by Surekha Villalobos, LEACH CELL OPERATOR) Syphilis Vitamin D deficiency GERD (gastroesophageal reflux disease) Chronic constipation Anxiety and depression Drug abuse Opioid use disorder Depot contraception Scoliosis Sleep disturbance Surgical History No pertinent past surgical history Family History Father Alcoholism Mother No problems noted. Maternal Grandfather Brain tumor Sister No problems noted. Social History Household Members: None Housing: Apartment Alcohol intake: current Alcohol intake frequency: holidays/special occasions only Alcohol type: beer and wine Patient Tobacco Use Status: Former Tobacco user Cigarettes Per Day: 2 Years Smoked: 2 years e-Cigarette/Vaping Use: Currently Using service: No Current occupational status: employed Current occupation: N Current occupational exposures/hazards: No Cognitive needs: No Hearing needs: No Vision needs: No Female Reproductive History Menstrual Age of Menarche: 13 Review of Systems Const Reports as per HPI and Reports no additional complaints Telehealth Telehealth Telehealth Platform: Telephone Location of provider rendering services: practice address Location of patient: address on file Patient Identification confirmed using: Name, : Yes Telehealth method: voice only Patient verbally consented to treatment: Yes Patient verbally consented to billing insurance company: Yes Minutes spent on Phone/Video with Pt.: 15 Assessment & Plan Assessment & Plan (1) Opioid use disorder: Code(s): F11.99 - Opioid use, unspecified with unspecified opioid-induced disorder Category: Medical Plan: * will continue to check in as methadone taper continues * will follow up PRN
== END 2024-01-06 10:33 | disposition home or self-care (01) ==
PROVIDERS: PCP Nurse Practitioner Family; Visit Provider Nurse Practitioner Psychiatric/Mental Health
DX: F11.99 Opioid use, unspecified with unspecified opioid-induced disorder (principal)
CPT/HCPCS: 99212

== ENCOUNTER → 2024-01-06 09:24 | Outpatient (BNVA) | payer OTHER, SELFPAY | PROVIDERS: PCP Nurse Practitioner Family; Visit Provider Nurse Practitioner Psychiatric/Mental Health ==

== ENCOUNTER 2024-01-12 11:55 | Outpatient (AMB) | payer OTHER, SELFPAY ==
--- NOTE | 2024-01-12 11:59 | A.OFFVIS_ITS ---
Vital Signs 01/12/24 12:01 Height 5 ft 7 in Weight 173 lb BMI 27.1 BP 98/60 Blood Pressure Location Lt brachial Position Sitting Pulse 72 Intake Visit Reasons: 6 month follow up Intake Note: Patient 6 month follow up for constipation Patient cc: chronic morning abdominal pain and bloating, constipation with some blood spot. Denies any other GI issues. V Belt Finisher Required: No Accompanied by: Self / Same As Patient Allergies No Known Allergies [No Known Allergies*] Allergy (Verified 01/12/24 11:58) Medication List - Last Reconciled 01/12/24 by Roge Arthur MD famotidine 20 mg PO BID 90 days gabapentin 300 mg PO BID 30 days hydroxyzine pamoate (Vistaril) 50 mg (2 x 25 mg) PO BEDTIME PRN lansoprazole (Prevacid SoluTab) 15 mg PO DAILY 30 days levonorgestrel-ethinyl estrad 0.15 mg-30 mcg (91) (Jolessa) 1 tab PO DAILY lorazepam 0.5 mg PO DAILY PRN 20 days methadone (Methadone Intensol) 125 mg PO DAILY nicotine 1 patch transdermal DAILY trazodone 50 mg PO BEDTIME PRN 30 days HPI HPI 6 month follow up: Details: GI clinic visit for this 28-year-old female for follow-up hep C genotype 1a - treated in the past with Mavyret x 8 weeks. (She missed 2-3 weeks of treatment and hepatitis C viral load was negative at the end of treatment and at 1 year FU testing. Pt has been followed by Dr Grissom since 04/2018. IMAGING STUDIES:? 11/06/21 abdominal ultrasound showed: Normal-appearing gallbladder. Echogenic liver. TODAY'S VISIT: Patient cc: chronic morning abdominal pain and bloating, constipation with some blood spot. Denies any other GI issues. 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 Has a BM 1-2 times a week - hard stools associated with straining. Notes rectal bleeding with passage of large BM. Notes BRB on the surface of the stool - unable to tell if there is blood mixed with the stool. Wakes up with stabbing lower abdominal pain - improves after she has a BM. Not taking the supplements since April last year and stopped the workout program she had enrolled in. Tapering Methadone - tapering by 5 mg every 3 days Taking Prevacid with adequate control of heartburn. Takes Gabapentin 1-2 times a month for anxiety. PAST VISIT: Started taking a supplement - OPTI greens and OPTI reds for bloating (supports immune system, contains digestive enzymes and probiotics) - helps with bloating. Symptoms improved and stopped taking Famotidine and Linzess She was getting acid reflux at night since she was eating ice-cream and candy at bedtime Takes TUMS once a week for acid reflux - upto 10 tablets Has a BM once a day Denies rectal bleeding. 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) Had abdominal pain, nausea and vomiting which lasted over a month. She was seen at [facility] on 11/06/21 with above symptoms Unable to keep anything down. Has been feeling better and back to normal for the past week. Has been drinking 3-4 cups of hot water with lemon, apple cider vinegar, honey and cinnamon Above symptoms have resolved since she started drinking hot water with apple cider vinegar Constipation is better and denies any blood in the stool. On a micro dose of suboxone and trying to taper. Not taking Amitiza since it was causing diarrhea. Pt is accompanied by her GM. Worsening constipation for the past 3 months. Has a BM once a week and takes MOM when she starts getting bad stomach pains and unable to poop. Notes rectal bleeding every time she has a BM. Blood was bright red and mixed with the stool. after taking several doses of MOM, she gets diarrhea and does not see any blood. Has hard stools and has to disimpact by digital manipulation. Has tried stool softeners and Miralax which did not work. Has noted bad acid reflux for the past 2-3 weeks - can start in the middle of the night. Has nausea, regurgitation and burning in her throat. Has to cut food in smaller pieces due to swallowing difficulty. Complains of abdominal pain and is very constipated. Has a sharp stabbing pain when she tries to have a BM. Has a BM once a week and it hurts to have a BM. Stool are hards and notes some dark blood on wiping. Has issues going to the bathroom since childhood. Also has heartburn.? Stomach hurts every time she tries to eat. Has gained 40 lbs in the last 6 months. Patient denies major cardiac or pulmonary problems, loud snoring or sleep apnea Has trouble sleeping and only able to sleep 2 hrs at a time. Denies having any surgeries in the past. Takes Ibuprofen 4-5 times a week for migraine JAMES and joint pains. Denies being on chronic anticoagulation. Patient denies known family history of colon polyps, colon cancer or other GI malignancies. Lives by herself and has no children. 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 PAST EGD/COLONOSCOPY:? Never had an EGD or colon PFSH Medical History (Updated 01/09/24 @ 22:14 by Surekha Villalobos, DIRECTOR OF RECRUITMENT AND ADMISSIONS) Syphilis Vitamin D deficiency GERD (gastroesophageal reflux disease) Chronic constipation Anxiety and depression Drug abuse Opioid use disorder Depot contraception Scoliosis Sleep disturbance Surgical History No pertinent past surgical history Family History Father Alcoholism Mother No problems noted. Maternal Grandfather Brain tumor Sister No problems noted. Social History Household Members: None Housing: Apartment Alcohol intake: current Alcohol intake frequency: holidays/special occasions only Alcohol type: beer and wine Patient Tobacco Use Status: Former Tobacco user Cigarettes Per Day: 2 Years Smoked: 2 years e-Cigarette/Vaping Use: Currently Using service: No Current occupational status: employed Current occupation: [employer] Current occupational exposures/hazards: No Cognitive needs: No Hearing needs: No Vision needs: No Female Reproductive History Menstrual Age of Menarche: 13 Review of Systems Const All systems reviewed & are unremarkable except as noted in HPI and below Physical Exam Vital Signs: Last Vital Signs Pulse 72 01/12/24 12:01 BP 98/60 01/12/24 12:01 BMI result Body Mass Index 27.1 Const General: healthy appearing and no acute distress Nutritional Appearance: overweight Orientation/consciousness: patient oriented x3 Limitations: no limitations HEENT Head: Yes normal to inspection Ears: hearing grossly normal bilaterally Eyes Sclerae: sclerae normal Pupils: Equal, round and reactive pupils present Neck Neck: Yes normal visual inspection Chest Chest palpation & inspection: normal inspection of the chest Resp Effort & Inspection: normal respiratory effort Auscultation: clear to auscultation bilaterally Cardio Palpation: normal PMI Rate: regular rate Rhythm: regular rhythm Heart sounds: S1 normal heart sound present, S2 normal heart sound present and no murmurs GI Palpation (GI): Soft to palpation, nontender and No hepatosplenomegaly present Auscultation: normal bowel sounds Rectal Exam - Female: deferred Skin General skin exam: no rashes or lesions noted Neuro General: patient oriented x3, gait normal and moves all extremities Cranial nerves: Yes Equal, round and reactive pupils present Psych Appearance: grossly normal Mental Status: mental status grossly normal Assessment & Plan Assessment & Plan (1) Constipation: Code(s): K59.00 - Constipation, unspecified Category: Medical (2) GERD (gastroesophageal reflux disease): Code(s): K21.9 - Gastro-esophageal reflux disease without esophagitis Category: Medical Plan 28 YF with hx of drug abuse, hepatitis C (treated successfully with Mavyret in 2 019) and chronic constipation. Pt complains of abdominal pain associated with worsening constipation, wt gain and rectal bleeding associated with straining during a? BM. Pt was advised to take MOM followed by Shena every day for constipation. She will be scheduled for a follow-up appointment in 8 weeks. Pt was reminded to have labs checked - order placed by her PCP. ADDENDUM: KUB results were reviewed with the patient. Linaclotide has been working well - having a BM daily to every other day. Notes decrease in rectal bleeding Patient was advised to continue above medications and keep follow-up appointment in October 2019. She was seen at [facility] on 11/06/21 with abdominal pain, nausea and vomiting which lasted over a month. Unable to keep anything down. She started drinking 3-4 cups of hot water with lemon, apple cider vinegar, honey and cinnamon and she has been feeling better since and back to normal. Constipation is better and denies any blood in the stool. On a micro dose of suboxone and trying to taper. Not taking Amitiza since it was causing diarrhea. 03/03/23 Start Famotidine at bedtime for GERD symptoms Resume Linzess 72 mcg daily for constipation 07/14/23 OPTI greens and OPTI reds for bloating (supports immune system, contains digestive enzymes and probiotics) - helps with bloating. Symptoms improved and stopped taking Famotidine and Linzess Option for further evaluation with an EGD or barium swallow were reviewed with the pt. She will monitor her symptoms for now and may schedule after her next FU visit 01/12/24 Pt advised to continue Prevacid 15 mg daily for GERD and resume taking Linzess 72 mcg daily Pt is scheduled for an EGD on 04/20/24 (advised to add same day flexible sigmoidoscopy for evaluation of rectal bleeding) FU in 6 weeks Medications: New linaclotide (Linzess) 72 mcg PO QAM 90 days 90 caps 3RF K59.09 - Other constipation Coding Level of Care Code Est Pt Level 4 (10882) Diagnoses Constipation K59.00 GERD (gastroesophageal reflux disease) K21.9 Time Spent (min) 23
[2024-01-12 12:01] VITALS: BP 98/60; PULSE 72; BMI 27.1
== END 2024-01-12 12:34 | disposition home or self-care (01) ==
PROVIDERS: PCP Nurse Practitioner Family; Visit Provider Internal Medicine Gastroenterology
DX: K59.00 Constipation, unspecified (principal); K21.9 Gastro-esophageal reflux disease without esophagitis
CPT/HCPCS: 99214

== ENCOUNTER → 2024-01-12 11:55 | Outpatient (BNVA) | payer OTHER, SELFPAY | PROVIDERS: PCP Nurse Practitioner Family; Visit Provider Internal Medicine Gastroenterology | DX: K59.00 Constipation, unspecified (principal); K21.9 Gastro-esophageal reflux disease without esophagitis | CPT/HCPCS: 99212 ==

== ENCOUNTER 2024-02-01 12:35 | Outpatient (REF) | payer OTHER, SELFPAY ==
[2024-02-01 16:17] LABS: MANUAL DIFF FLAG NO
[2024-02-01 16:26] LABS: Basophils Percent Auto 0.4 % (0-2); Eosinophils Absolute Auto 0.3 X10*3/uL (0.0-0.4); Eosinophils Percent Auto 4.6 % (0-4); Hematocrit 40.2 % (37.0-47.0); Hemoglobin 13.2 g/dl (12.0-16.0); Imm Gran Abs Auto 0.02 X10*3/uL (0.00-0.03); Imm Gran Pct Auto 0.3 % (0.0-0.4); Lymphocytes Absolute Auto 2.8 X10*3/uL (1.2-4.9); Lymphocytes Percent Auto 39.1 % (20-40); Mean Corpuscular HGB Conc 32.8 g/dl (31.0-35.0); Mean Corpuscular Hemoglobin 29.2 pg (27.0-33.0); Mean Corpuscular Volume 88.9 fL (80.0-98.0); Mean Platelet Volume 10.9 fL (9.4-12.3); Monocytes Absolute Auto 0.4 X10*3/uL (0.1-1.2); Monocytes Percent Auto 5.6 % (2-11); Neutrophils Absolute Auto 3.6 x10*3/uL (2.0-8.3); Platelet Count 259 X10*3/uL (160-400); Red Blood Count 4.52 X10*6/uL (4.20-5.50); White Blood Count 7.1 X10*3/uL (4.8-10.8)
[2024-02-01 16:30] LABS: INTERNATIONAL NORM RATIO 0.8 (0.9-1.1); Prothrombin Time 9.7 SEC (11.1-13.3)
[2024-02-01 16:47] LABS: Alanine Aminotransferase 32 U/L (0-31); Albumin Level 4.1 g/dL (3.5-5.0); Alkaline Phosphatase 66 U/L (39-117); Anion Gap 17 (12-20); Aspartate Amino Transferase 21 U/L (5-31); Bilirubin Total 0.2 mg/dL (0.0-1.0); Blood Urea Nitrogen 6 mg/dL (9-16); Calcium 9.2 mg/dL (8.4-10.2); Carbon Dioxide 19 mmol/L (22-29); Chloride 105 mmol/L (96-108); Estimated Glomerular Filt Rate > 60; Glucose Random 98 mg/dL (60-115); Iron 91 mcg/dL (30-160); Percent Iron Saturation 26 % (15-50); Potassium 3.9 mmol/L (3.3-5.1); Sodium 137 mmol/L (135-145); Total Iron Binding Capacity 345 mcg/dL (228-428); Total Protein 7.2 g/dL (6.5-8.0); Unsaturated Iron Binding 254 ug/dL
[2024-02-01 17:04] LABS: Ferritin 51 ng/mL (10-122); TSH reflex Free T4 1.13 uIU/mL (0.32-4.0)
[2024-02-01 17:12] LABS: Folate 8.3 ng/mL (> or = 4.0); Vitamin B12 337 pg/mL (200-900)
== END 2024-02-01 12:36 | disposition home or self-care (01) ==
LOC: HO.HMGCLDS 12:35
PROVIDERS: PCP Nurse Practitioner Family; Visit Provider Nurse Practitioner Family
DX: R53.83 Other fatigue (principal); R23.3 Spontaneous ecchymoses
CPT/HCPCS: 36415; 80053; 82607; 82728; 82746; 83540; 84443; 85025; 85610

== ENCOUNTER 2024-03-22 07:48 | Outpatient (AMB) | payer OTHER, SELFPAY ==
--- NOTE | 2024-03-22 07:34 | MHC.PC.OV ---
Intake Visit Reasons: sleep issues-iphone Allergies No Known Allergies [No Known Allergies*] Allergy (Verified 01/12/24 11:58) Medication List - Last Reconciled 03/22/24 by BHAVESH Amador famotidine 20 mg PO BID 90 days gabapentin 300 mg PO BID 30 days hydroxyzine pamoate (Vistaril) 50 mg (2 x 25 mg) PO BEDTIME PRN lansoprazole (Prevacid SoluTab) 15 mg PO DAILY 30 days levonorgestrel-ethinyl estrad 0.15 mg-30 mcg (91) (Jolessa) 1 tab PO DAILY linaclotide (Linzess) 72 mcg PO QAM 90 days lorazepam 0.5 mg PO DAILY PRN 20 days methadone (Methadone Intensol) 50 mg PO DAILY nicotine 1 patch transdermal DAILY trazodone 100 mg PO BEDTIME PRN 30 days Tobacco use date assessed: 09/01/23 Dental Screening Dental Screen Date: 09/01/23 HPI sleep issues-iphone HPI Details Pt c/o trouble sleeping. She reports waking up throughout the night. Pt is taking trazodone which causes her to feel more tired in the morning. She is seeing a psychiatrist in the near future for a second time, will await their input. Pt is decreasing her methadone. Denies fever, chills, SI, HI, and dizziness. [facility] Medical History (Updated 03/22/24 @ 07:48 by DELFINA Amador) Syphilis Vitamin D deficiency GERD (gastroesophageal reflux disease) Chronic constipation Anxiety and depression Drug abuse Opioid use disorder Depot contraception Scoliosis Sleep disturbance Surgical History No pertinent past surgical history Family History Father Alcoholism Mother No problems noted. Maternal Grandfather Brain tumor Sister No problems noted. Social History Household Members: None Housing: Apartment Alcohol intake: current Alcohol intake frequency: holidays/special occasions only Alcohol type: beer and wine Patient Tobacco Use Status: Former Tobacco user Cigarettes Per Day: 2 Years Smoked: 2 years e-Cigarette/Vaping Use: Currently Using service: No Current occupational status: employed Current occupation: [employer] Current occupational exposures/hazards: No Cognitive needs: No Hearing needs: No Vision needs: No Female Reproductive History Menstrual Age of Menarche: 13 Questionnaire Thrive Questionnaire Date Thrive assessed: 01/02/24 ZAINAB-7 AMB Questionnaire ZAINAB-7 Date ZAINAB - 7 assessed: 07/13/22 Source: Developed by Drs. Rogerio Nguyễn, Anuradha Haddad, Srini Bonilla and colleagues, with an educational romie from [employer]. Review of Systems Const Reports as per HPI Physical exam (Primary Care) Tobacco/Smoking Status: Tobacco use Status Tobacco use date assessed 09/01/23 03/22/24 07:37 Patient Tobacco Use Status Former Tobacco user 03/22/24 07:37 e-Cigarette/Vaping Use Currently Using 03/22/24 07:37 Thrive Assessment: Date of Thrive Assessment Date Thrive assessed 01/02/24 03/22/24 07:37 Const General: cooperative Orientation/consciousness: patient oriented x3 Neuro General: patient oriented x3 Psych Appearance: grossly normal Mental Status: mental status grossly normal Speech and movement: Clear speech present Affect: normal affect Attitude: cooperative Thought process: Normal thought process present Thought content: Normal thought content present Insight: Good insight present (Psych) Judgement: Good judgement present (Psych) Telehealth Telehealth Telehealth Platform: [facility] Location of provider rendering services: practice address Location of patient: address on file Patient Identification confirmed using: Name, : Yes Telehealth method: video Patient verbally consented to treatment: Yes Patient verbally consented to billing insurance company: Yes Patient informed of any privacy concerns related to visit: Yes Minutes spent on Phone/Video with Pt.: 10 Assessment and Plan Assessment & Plan (1) Insomnia: Code(s): G47.00 - Insomnia, unspecified Plan: following up with psychiatrist Plan The patient agreed to the use of a medical office receptionist assistant for this encounter. Scribed for DELFINA Bruno by alfredo Zimmerman scribe, on 03/22/2024 at 07:35 EST. Coding Level of Care Code Tele Est Pt Level 3 (78059) Diagnoses Insomnia G47.00
== END 2024-03-22 08:22 | disposition home or self-care (01) ==
LOC: HO.HMGC 07:48
PROVIDERS: PCP Nurse Practitioner Family; Visit Provider Nurse Practitioner Family
DX: G47.00 Insomnia, unspecified (principal)
CPT/HCPCS: 99213

== ENCOUNTER 2024-04-19 13:49 | Outpatient (AMB) | payer OTHER, SELFPAY ==
[2024-04-19 13:51] VITALS: BP 108/66; PULSE 80; O2SAT 97; BMI 28.3
--- NOTE | 2024-04-19 13:51 | MHC.PC.OV ---
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 Accompanied by: Self / Same As Patient Allergies No Known Allergies [No Known Allergies*] Allergy (Verified 04/19/24 14:55) Medication List - Last Reconciled 04/19/24 by DELFINA Amador clonidine HCl 0.1 mg PO TID hydroxyzine pamoate (Vistaril) 50 mg (2 x 25 mg) PO BEDTIME PRN levonorgestrel-ethinyl estrad 0.15 mg-30 mcg (91) (Jolessa) 1 tab PO DAILY lorazepam 0.5 mg PO DAILY PRN 20 days methadone (Methadone Intensol) 50 mg PO DAILY mirtazapine mg PO nicotine 1 patch transdermal DAILY trazodone 100 mg PO BEDTIME PRN 30 days Tobacco use date assessed: 09/01/23 Dental Screening Dental Screen Date: 09/01/23 HPI 3 month follow up HPI Details Anxiety/depression: Pt reports doing well overall. Pt just went through a breakup last weekend but is doing well. She is seeing a psychiatrist. Denies any SI and HI. Hx of drug abuse (pt reported). She has not used drugs since November. Pt is currently on methadone. [facility] Medical History Drug abuse Syphilis Vitamin D deficiency GERD (gastroesophageal reflux disease) Chronic constipation Anxiety and depression Opioid use disorder Scoliosis Sleep disturbance Surgical History No pertinent past surgical history Family History Father Alcoholism Mother No problems noted. Maternal Grandfather Brain tumor Sister No problems noted. Social History Household Members: None Housing: Apartment Alcohol intake: current Alcohol intake frequency: holidays/special occasions only Alcohol type: beer and wine Patient Tobacco Use Status: Former Tobacco user Cigarettes Per Day: 2 Years Smoked: 2 years e-Cigarette/Vaping Use: Currently Using service: No Current occupational status: employed Current occupation: [employer] Current occupational exposures/hazards: No Cognitive needs: No Hearing needs: No Vision needs: No Female Reproductive History Menstrual Age of Menarche: 13 Questionnaire PHQ-9 Over the last 2 weeks, how often have you been bothered by any of the following problems? 1. Little interest or pleasure in doing things: several days 2. Feeling down, depressed, or hopeless: several days 3. Trouble falling or staying asleep, or sleeping too much: more than half the days 4. Feeling tired or having little energy: several days 5. Poor appetite or overeating: more than half the days 6. Feeling bad about yourself - or that you are a failure or have let yourself or your family down: not at all 7. Trouble concentrating on things, such as reading the newspaper or watching television: several days 8. Moving or speaking so slowly that other people could have noticed. Or the opposite - being so fidgety or restless that you have been moving around a lot more than usual: not at all 9. Thoughts that you would be better off or of hurting yourself in some way: not at all Total score: 8 Depression Screening Interpretation: Negative Depression Screening Done: Yes 80757 - PHQ-9 Billing: Yes Source: Developed by Drs. Rogerio Nguyễn, Anuradha Haddad, Srini Bonilla and colleagues, with an educational romie from [employer]. Thrive Questionnaire Date Thrive assessed: 04/19/24 I am a: Patient What is your living situation today?: I have a steady place to live Within the past 12 months, did the food you bought not last and you didn't have the money to get more?: Never true Within the past 12 months, did you worry whether your food would run out before you got money to buy more?: Never true Do you have trouble paying for medicines?: No Do you have trouble getting transportation to medical appointments?: No Do you have trouble paying your heating and electricity bill?: No Do you have trouble taking care of your child, family member or friend?: No Do you have trouble with day-to-day activities such as bathing, preparing meals, shopping, managing finances, etc.?: No Are you currently unemployed and looking for a job?: No Are you interested in more education?: No Please select the resources that you would like help with: None Currently or been in a relationship where the following occur: I choose not to answer THRIVE Score: 0 AUDIT C Alcohol Use Questionnaire (AUDIT-C) 1. How often do you have a drink containing alcohol?: 2-3 times a week 2. How many drinks containing alcohol do you have on a typical day when you are drinking?: 1 or 2 3. How often do you have six or more drinks on one occasion?: Never Total Score: 3 Score Reviewed/Action Taken: Yes ZAINAB-7 AMB Questionnaire ZAINAB-7 Date ZAINAB - 7 assessed: 04/19/24 Feeling nervous, anxious, or on edge: 3 = Nearly every day Not being able to stop or control worryin = More than half the days Worrying too much about different things: 2 = More than half the days Trouble relaxin = More than half the days Being so restless that it is hard to sit still: 1 = Several days Becoming easily annoyed or irritable: 2 = More than half the days Feeling afraid as if something awful might happen: 1 = Several days Total ZAINAB-7 score (0-4 normal; 5-9 mild; 10-14 moderate; 15-21 severe): 13 Source: Developed by Drs. Rogerio Nguyễn, Anuradha Haddad, Srini Bonilla and colleagues, with an educational romie from [employer]. ZAINAB-7 Assessment Billing ZAINAB-7 Assessment Tool: ZAINAB-7 Assessment 50548 Review of Systems Const Reports as per HPI Physical exam (Primary Care) Vital Signs: Last Vital Signs Pulse 80 04/19/24 13:51 BP 108/66 04/19/24 13:51 Pulse Ox 97 04/19/24 13:51 Oxygen Delivery Method Room Air 04/19/24 13:51 BMI result Body Mass Index 28.3 Tobacco/Smoking Status: Tobacco use Status Tobacco use date assessed 09/01/23 04/19/24 13:51 Patient Tobacco Use Status Former Tobacco user 04/19/24 13:51 e-Cigarette/Vaping Use Currently Using 08/22/24 13:51 PHQ-9: PHQ-9 Score PHQ-9: Total score 8 04/19/24 14:30 Depression Screening Interpretation: Negative Thrive Assessment: Date of Thrive Assessment Date Thrive assessed 04/19/24 04/19/24 13:58 Currently or been in a relationship where the following occur: I choose not to answer Const General: cooperative Orientation/consciousness: patient oriented x3 Resp Effort & Inspection: normal respiratory effort Auscultation: clear to auscultation bilaterally Cardio Rate: regular rate Rhythm: regular rhythm Heart sounds: S1 normal heart sound present and S2 normal heart sound present Neuro General: patient oriented x3 Psych Appearance: grossly normal Mental Status: mental status grossly normal Speech and movement: Normal speech and movement present Affect: normal affect Attitude: cooperative Thought process: Normal thought process present Thought content: Normal thought content present Insight: Good insight present (Psych) Judgement: Good judgement present (Psych) Assessment and Plan Assessment & Plan (1) Anxiety and depression: Code(s): F41.9 - Anxiety disorder, unspecified; F32.9 - Major depressive disorder, single episode, unspecified Plan: Doing well (2) Drug abuse: Code(s): F19.10 - Other psychoactive substance abuse, uncomplicated Plan: Currently on methadone Plan The patient agreed to the use of a biomedical equipment tech for this encounter. Scribed for DELFINA Bruno by [employer] biomedical equipment tech, on 04/19/2024 at 14:30 EST. Orders: Orders Complete Blood Count Auto Diff Today F19.10 - Other psychoactive substance abuse, uncomplicated, F32.9 - Major depressive disorder, single episode, unspecified, F41.9 - Anxiety disorder, unspecified Lipid Panel Today F19.10 - Other psychoactive substance abuse, uncomplicated, F32.9 - Major depressive disorder, single episode, unspecified, F41.9 - Anxiety disorder, unspecified Comprehensive [place]. Panel Fast Today F19.10 - Other psychoactive substance abuse, uncomplicated, F32.9 - Major depressive disorder, single episode, unspecified, F41.9 - Anxiety disorder, unspecified TSH reflex Free T4 Today F19.10 - Other psychoactive substance abuse, uncomplicated, F32.9 - Major depressive disorder, single episode, unspecified, F41.9 - Anxiety disorder, unspecified UA CC w/rflx Micro + Cult Today F19.10 - Other psychoactive substance abuse, uncomplicated, F32.9 - Major depressive disorder, single episode, unspecified, F41.9 - Anxiety disorder, unspecified Coding Level of Care Code Est Pt Level 3 (92778) Diagnoses Anxiety and depression F41.9; F32.9 Drug abuse F19.10 Additional Codes ZAINAB-7 Assessment Billing - ZAINAB-7 Assessment Tool: ZAINAB-7 Assessment [id number] ([id number])
== END 2024-04-19 16:45 | disposition home or self-care (01) ==
PROVIDERS: PCP Nurse Practitioner Family; Visit Provider Nurse Practitioner Family
DX: F41.9 Anxiety disorder, unspecified (principal); F32.9 Major depressive disorder, single episode, unspecified; F19.10 Other psychoactive substance abuse, uncomplicated
CPT/HCPCS: 99213

== ENCOUNTER → 2024-04-20 07:59 | Day surgery (SDC) | payer OTHER, SELFPAY ==
[2024-04-18 13:13] VITALS: BMI 27.1
--- NOTE | 2024-04-20 07:35 | HO.ANESPROP2 ---
[facility] Active Problems Active Problems: All Active Problems Vitamin D deficiency (Acute) Drug abuse (Acute) Insomnia (Acute) Easy bruising (Acute) Fatigue (Acute) Panic attacks (Acute) Illness (Acute) control counseling (Acute) Folliculitis (Acute) Sinusitis (Acute) Pharyngitis (Acute) Exposure to gonorrhea (Acute) Vaginal discharge (Acute) Constipation (Acute) Potential exposure to STD (Acute) Problematic vaginal discharge (Acute) Well woman exam with routine gynecological exam (Acute) Cervical cancer screening (Acute) Physical exam (Acute) GERD (gastroesophageal reflux disease) (Acute) Anxiety and depression (Acute) Depot contraception (Acute) Opioid use disorder (Acute) Past Medical History Medical History Drug abuse Syphilis Vitamin D deficiency GERD (gastroesophageal reflux disease) Chronic constipation Anxiety and depression Opioid use disorder Scoliosis Sleep disturbance Functional capacity: independent ambulation Patient : No Family History Family History Father Alcoholism Mother No problems noted. Maternal Grandfather Brain tumor Sister No problems noted. Family history of problems with anesthesia: No Surgical History Surgical History No pertinent past surgical history History of Problems with Anesthesia: No Social History Social History Household Members: None Housing: Apartment Alcohol intake: current Alcohol intake frequency: holidays/special occasions only Alcohol type: beer and wine Patient Tobacco Use Status: Former Tobacco user Cigarettes Per Day: 2 Years Smoked: 2 years e-Cigarette/Vaping Use: Currently Using service: No Current occupational status: employed Current occupation: [employer] Current occupational exposures/hazards: No Cognitive needs: No Hearing needs: No Vision needs: No Meds Allergies Allergy/AdvReac Type Severity Reaction Status Date / Time No Known Allergies Allergy Verified 04/19/24 14:55 [No Known Allergies*] Home Medications ?Medication ?Instructions ?Recorded ?Confirmed ?Last Taken ?Type methadone 10 mg/mL oral 50 mg PO DAILY 03/22/24 04/19/24 Unknown History concentrate (Methadone Intensol) clonidine HCl 0.1 mg tablet 0.1 mg PO TID 04/19/24 04/19/24 Unknown History mirtazapine 15 mg tablet mg PO 04/19/24 04/19/24 Unknown History Exam Height,Weight and Vital Signs: Height 5 ft 7 in Weight 78.471 kg Airway Mallampati Class: II TM Dist: >3cm Neck ROM: Full Heart: RRR Lungs: CTA Assessment and Plan Assessment Anesthesia Assessment: Anesthesia Plan Discussed Final Anesthetic Review Family History of Problems with Anesthesia: No History of Problems with Anesthesia: No Final Preanesthetic Review: Meds/Allgs Chart Reviewed, Consent Obtained/Reviewed and Anes Risks/Benef Reviewed
[2024-04-20 08:07] VITALS: BMI 28.2
--- NOTE | 2024-04-20 08:21 | MHC.SHP ---
Pre-Procedural Eval Section A - 24 Hr Update-Section A only Date of Service: 04/20/24 Section B - Complete if H&P > 30 days Chief Complaint: Gastro-esophageal reflux disease without esophagit Details of Present Illness: rectal bleeding Relevant Family History (Specify if Yes): No Relevant Social History: Other (specify) Present Medications: see Short Stay Collaborative assessment Medical History: Significant History (Drug abuse Syphilis Vitamin D deficiency GERD (gastroesophageal reflux disease) Chronic constipation Anxiety and depression Opioid use disorder Scoliosis Sleep disturbance) History of Previous Operations: No relevant previous surgery Allergies: Allergies Allergy/AdvReac Type Severity Reaction Status Date / Time No Known Allergies Allergy Verified 04/19/24 14:55 [No Known Allergies*] Review of Systems Sugical H&P ROS: Negative: Constitution, Cardiovascular, Respiratory, Neurological, Psychiatric, Hem-Onc, Allergic/Immunologic, Gastrointestinal, Genitourinary, Musculoskeletal, Integumentary, Endocrine and Eyes/Ears/Nose/Throat Exam Surgical H&P Exam: Normal: HEENT, Normal: Heart, Normal: Lungs, Normal: Extremities, Normal: Abdomen, Normal: Skin and Normal: Neurological Plan Diagnosis/Plan: Unchanged I have reviewed the history and physical and performed a pertinent physical examination on my patient. No changes have occurred unless specified. EGD for GERD and sigmoidoscopy for rectal bleeding Time Spent With Patient Time: Total time managing care of this patient today ____ minutes.
[2024-04-20 08:25] LABS: UPreg QC Valid YES; Urine Pregnancy NEGATIVE (NEGATIVE)
[2024-04-20 08:47] VITALS: BP 125/74; PULSE 82; RESP 16; TEMP 36.3; O2SAT 98
--- NOTE | 2024-04-20 09:46 | MHC.HEMONC ---
Multiple unsuccessful IV attempts, last attempt with fluor by Dr Underwood unsuccessful. Procedure cancelled, to be rescheduled with a prior IV access plan. Pt will call Dr Arthur's office to reschedule. Monitor removed, pt discharged home with father and all personal belongings.
== END ==
LOC: HO.SSS 08:00
PROVIDERS: Anesthesiology; PCP Nurse Practitioner Family; Visit Provider Internal Medicine Gastroenterology
DX: K21.9 Gastro-esophageal reflux disease without esophagitis (principal); K59.00 Constipation, unspecified; Z53.8 Procedure and treatment not carried out for other reasons
CPT/HCPCS: 81025

== ENCOUNTER 2024-05-10 10:04 | Outpatient (AMB) | payer OTHER, SELFPAY ==
[2024-05-10 10:09] VITALS: BP 114/82; PULSE 92; TEMP 36.8; O2SAT 98; BMI 28.0
--- NOTE | 2024-05-10 10:09 | AM.OFFWIN_ITS ---
Intake Vital Signs 05/10/24 10:09 Height 5 ft 7 in Weight 179 lb BMI 28.0 BP 114/82 Blood Pressure Location Rt brachial Position Sitting Pulse 92 Pulse Source Pulse Oximeter Temp 98.2 F Temp Source Oral Pulse Oximetry (%) 98 Oxygen Delivery Method Room Air Intake Visit Reasons: EP strep + Intake Note: pt c/o strep throat. sore throat, runny nose, hot and cold flashes. Patient Tobacco Use Status: Former Tobacco user Allergies No Known Allergies [No Known Allergies*] Allergy (Verified 05/10/24 10:16) Do you need a note to return to daycare/school/sports/work: Yes HPI HPI Comments History of Present Illness Details Patient is a 29-year-old female complaining of a sore throat. She states that she was at work yesterday and was coughing and had a sore throat so they tested her for COVID which was negative and then they tested her for strep which was positive. She states she is coughing with mucus and has a headache and feels feverish. She has not taken any medications to make herself feel better she also states she needs a note to return to work. 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 [facility] Medical History Drug abuse Syphilis Vitamin D deficiency GERD (gastroesophageal reflux disease) Chronic constipation Anxiety and depression Opioid use disorder Scoliosis Sleep disturbance Surgical History No pertinent past surgical history Family History Father Alcoholism Mother No problems noted. Maternal Grandfather Brain tumor Sister No problems noted. Social History Household Members: None Housing: Apartment Are you a primary palliative care specialist to a significant other at home: No Do you presently have visiting nurse or other home services: No Alcohol intake: current Alcohol intake frequency: holidays/special occasions only Alcohol type: beer and wine Patient Tobacco Use Status: Former Tobacco user Tobacco use type: Smokeless Tobacco Cigarettes Per Day: 2 Years Smoked: 2 years e-Cigarette/Vaping Use: Currently Using [employer] service: No Current occupational status: employed Current occupation: [employer] Current occupational exposures/hazards: No Cognitive needs: No Hearing needs: No Vision needs: No Female Reproductive History Menstrual Age of Menarche: 13 Review of Systems Const All systems reviewed & are unremarkable except as noted in HPI and below Physical Exam Vital Signs: Last Vital Signs Temp 98.2 F 05/10/24 10:09 Pulse 92 05/10/24 10:09 BP 114/82 05/10/24 10:09 Pulse Ox 98 05/10/24 10:09 Oxygen Delivery Method Room Air 05/10/24 10:09 BMI result Body Mass Index 28.0 Const General: cooperative, healthy appearing, comfortable and no acute distress Orientation/consciousness: patient oriented x3 Limitations: no limitations HEENT Head: Yes normal to inspection Ears: hearing grossly normal bilaterally, external ears normal and TM's normal bilaterally General nose exam: Normal external nose present, Normal nares present and No nasal discharge present Face and sinus: Yes normal facial exam and Yes sinuses nontender Mouth: Normal oral and palatal mucosa present and moist mucous membranes Throat: Yes tonsils normal, Yes uvula midline and Yes posterior oropharynx abnormal (Erythema, no exudate noted on exam) Eyes General: appearance normal, both eyes and all related structures Neck Neck: Yes normal visual inspection Resp Effort & Inspection: normal respiratory effort, able to speak in complete sentences, no respiratory distress, not tachypneic, no tripod positioning and no use of accessory muscles Skin General skin exam: no rashes or lesions noted Neuro General: patient oriented x3 Extrem General: Yes normal to inspection and Yes no clubbing, cyanosis or edema Results AMB Rapid Strep AMB Rapid Strep Negative Last Edit by Maurizio Greer CMA on 05/10/24 10:30 Results Reviewed Results Reviewed: Laboratory Last Values Strep Scn [facility] Negative 05/10/24 10:26 Assessment & Plan Assessment & Plan (1) Strep pharyngitis: Code(s): J02.0 - Streptococcal pharyngitis Plan: Rapid strep in office is negative however she did have a positive rapid strep 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 Plan see above Orders: Orders AMB Rapid Strep Screen Today Z13.9 - Encounter for screening, unspecified SARS-CoV2/FLU/RSV Today J06.9 - Acute upper respiratory infection, unspecified Medications: New amoxicillin 500 mg PO BID 20 tabs 0RF Coding Level of Care Code Est Pt Level 3 (79005) Diagnoses Strep pharyngitis J02.0
== END 2024-05-10 10:50 | disposition home or self-care (01) ==
PROVIDERS: PCP Nurse Practitioner Family; Visit Provider Physician Assistant
DX: J02.0 Streptococcal pharyngitis (principal)
CPT/HCPCS: 87880; 99213

== ENCOUNTER 2024-05-10 10:26 | Outpatient (REF) | payer OTHER, SELFPAY ==
[2024-05-10 14:34] LABS: Influenza A PCR NEGATIVE (Negative); Influenza B PCR NEGATIVE (Negative); Resp Syncy Virus RNA Qual PCR NEGATIVE (Negative); SARS COV2 PCR INHOUSE NEGATIVE (Negative)
== END 2024-05-10 10:27 | disposition home or self-care (01) ==
LOC: HO.LAB 10:26
PROVIDERS: Visit Provider Physician Assistant
DX: J06.9 Acute upper respiratory infection, unspecified (principal)
CPT/HCPCS: 0241U

== ENCOUNTER 2024-05-18 07:29 | Outpatient (AMB) | payer OTHER, SELFPAY ==
--- NOTE | 2024-05-18 07:34 | A.OFFVIS_ITS ---
Vital Signs 05/18/24 07:39 Height 5 ft 7 in Weight 179 lb BMI 28.0 BP 101/55 L Blood Pressure Location Lt brachial Position Sitting Pulse 71 Intake Visit Reasons: EGD and flex sig Intake Note: Patient follow up for EGD and flex sig but was not able to do it Patient cc: abdominal bloating, constipation with some bloody stool, and some pain when swallowing food. 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: No Accompanied by: Self / Same As Patient Allergies No Known Allergies [No Known Allergies*] Allergy (Verified 05/18/24 07:34) Medication List - Last Reconciled 05/18/24 by Roge Arthur MD clonidine HCl 0.1 mg PO TID PRN hydroxyzine pamoate (Vistaril) 50 mg (2 x 25 mg) PO BEDTIME PRN levonorgestrel-ethinyl estrad 0.15 mg-30 mcg (91) (Jolessa) 1 tab PO DAILY lorazepam 0.5 mg PO DAILY PRN 20 days methadone (Methadone Intensol) 40 mg PO DAILY nicotine 1 patch transdermal DAILY nicotine (polacrilex) 4 mg buccal Q2H PRN 30 days trazodone 50 mg PO BEDTIME PRN HPI HPI EGD and flex sig: Details: GI clinic visit for this 29-year-old female for follow-up hep C genotype 1a - treated in the past with Mavyret x 8 weeks. (She missed 2-3 weeks of treatment and hepatitis C viral load was negative at the end of treatment and at 1 year FU testing. Pt has been followed by Dr Grissom since 04/2018. TODAY'S VISIT: Patient cc: abdominal bloating, constipation with some bloody stool, and some pain when swallowing food. Unable to have EGD and Colon due to inability to start an IV line (tried 8 times and arms were bruised) Denies using IV drugs in 2 years. 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 Continues to have constipation Taking greens and reds and is able to have a BM when she takes them Abdominal pains and intermittent rectal bleeding Took Linzess for 4 days and had abdominal cramps. 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 Has a BM 1-2 times a week - hard stools associated with straining. Notes rectal bleeding with passage of large BM. Notes BRB on the surface of the stool - unable to tell if there is blood mixed with the stool. Wakes up with stabbing lower abdominal pain - improves after she has a BM. Not taking the supplements since April last year and stopped the workout program she had enrolled in. Tapering Methadone - tapering by 5 mg every 3 days Taking Prevacid with adequate control of heartburn. Takes Gabapentin 1-2 times a month for anxiety. Patient cc: chronic morning abdominal pain and bloating, constipation with some blood spot. Denies any other GI issues. Started taking a supplement - OPTI greens and OPTI reds for bloating (supports immune system, contains digestive enzymes and probiotics) - helps with bloating. Symptoms improved and stopped taking Famotidine and Linzess She was getting acid reflux at night since she was eating ice-cream and candy at bedtime Takes TUMS once a week for acid reflux - upto 10 tablets Has a BM once a day Denies rectal bleeding. 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 She was seen at [facility] on 11/06/21 with above symptoms Unable to keep anything down. Has been feeling better and back to normal for the past week. Has been drinking 3-4 cups of hot water with lemon, apple cider vinegar, honey and cinnamon Above symptoms have resolved since she started drinking hot water with apple cider vinegar Constipation is better and denies any blood in the stool. On a micro dose of suboxone and trying to taper. Not taking Amitiza since it was causing diarrhea. Pt is accompanied by her GM. Worsening constipation for the past 3 months. Has a BM once a week and takes MOM when she starts getting bad stomach pains and unable to poop. Notes rectal bleeding every time she has a BM. Blood was bright red and mixed with the stool. after taking several doses of MOM, she gets diarrhea and does not see any blood. Has hard stools and has to disimpact by digital manipulation. Has tried stool softeners and Miralax which did not work. Has noted bad acid reflux for the past 2-3 weeks - can start in the middle of the night. Has nausea, regurgitation and burning in her throat. Has to cut food in smaller pieces due to swallowing difficulty. Complains of abdominal pain and is very constipated. Has a sharp stabbing pain when she tries to have a BM. Has a BM once a week and it hurts to have a BM. Stool are hards and notes some dark blood on wiping. Has issues going to the bathroom since childhood. Also has heartburn.? Stomach hurts every time she tries to eat. Has gained 40 lbs in the last 6 months. Patient denies major cardiac or pulmonary problems, loud snoring or sleep apnea Has trouble sleeping and only able to sleep 2 hrs at a time. Denies having any surgeries in the past. Takes Ibuprofen 4-5 times a week for migraine JAMES and joint pains. Denies being on chronic anticoagulation. Patient denies known family history of colon polyps, colon cancer or other GI malignancies. Lives by herself and has no children. 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 IMAGING STUDIES:? 11/06/21 abdominal ultrasound showed: Normal-appearing gallbladder. Echogenic liver. PAST EGD/COLONOSCOPY:? Never had an EGD or colon [facility] Medical History (Updated 06/25/24 @ 10:41 by Bharati Mojica RN) Hepatitis C Syphilis Vitamin D deficiency GERD (gastroesophageal reflux disease) Chronic constipation Anxiety and depression Drug abuse Opioid use disorder Scoliosis Sleep disturbance Surgical History No pertinent past surgical history Family History Father Alcoholism Mother No problems noted. Maternal Grandfather Brain tumor Sister No problems noted. Social History Household Members: None Housing: Apartment Are you a primary child care associate teacher to a significant other at home: No Do you presently have visiting nurse or other home services: No Alcohol intake: current Alcohol intake frequency: holidays/special occasions only Alcohol type: beer and wine Patient Tobacco Use Status: Former Tobacco user Tobacco use type: Smokeless Tobacco Cigarettes Per Day: 2 Years Smoked: 2 years e-Cigarette/Vaping Use: Currently Using Advance Directives: No Advance Directives Information Provided: Yes service: No Current occupational status: employed Current occupation: [employer] Current occupational exposures/hazards: No Cognitive needs: No Hearing needs: No Vision needs: No Female Reproductive History Menstrual Age of Menarche: 13 Review of Systems Const All systems reviewed & are unremarkable except as noted in HPI and below Physical Exam Vital Signs: Last Vital Signs Pulse 71 05/18/24 07:39 BP 101/55 L 05/18/24 07:39 BMI result Body Mass Index 28.0 Const General: healthy appearing and no acute distress Nutritional Appearance: overweight Orientation/consciousness: patient oriented x3 Limitations: no limitations HEENT Head: Yes normal to inspection Ears: hearing grossly normal bilaterally Eyes Sclerae: sclerae normal Pupils: Equal, round and reactive pupils present Neck Neck: Yes normal visual inspection Chest Chest palpation & inspection: normal inspection of the chest Resp Effort & Inspection: normal respiratory effort Auscultation: clear to auscultation bilaterally Cardio Palpation: normal PMI Rate: regular rate Rhythm: regular rhythm Heart sounds: S1 normal heart sound present, S2 normal heart sound present and no murmurs GI Palpation (GI): Soft to palpation, nontender and No hepatosplenomegaly present Auscultation: normal bowel sounds Rectal Exam - Female: deferred Skin General skin exam: no rashes or lesions noted Neuro General: patient oriented x3, gait normal and moves all extremities Cranial nerves: Yes Equal, round and reactive pupils present Psych Appearance: grossly normal Mental Status: mental status grossly normal Assessment & Plan Assessment & Plan (1) Constipation: Code(s): K59.00 - Constipation, unspecified Category: Medical (2) GERD (gastroesophageal reflux disease): Code(s): K21.9 - Gastro-esophageal reflux disease without esophagitis Category: Medical (3) Vitamin D deficiency: Code(s): E55.9 - Vitamin D deficiency, unspecified Category: Medical Plan 29 YF with hx of drug abuse, hepatitis C (treated successfully with Mavyret in 2019) and chronic constipation. Pt complains of abdominal pain associated with worsening constipation, wt gain and rectal bleeding associated with straining during a? BM. Pt was advised to take MOM followed by Shena every day for constipation. She will be scheduled for a follow-up appointment in 8 weeks. Pt was reminded to have labs checked - order placed by her PCP. ADDENDUM: KUB results were reviewed with the patient. Linaclotide has been working well - having a BM daily to every other day. Notes decrease in rectal bleeding Patient was advised to continue above medications and keep follow-up appointment in October 2019. She was seen at [facility] on 11/06/21 with abdominal pain, nausea and vomiting which lasted over a month. Unable to keep anything down. She started drinking 3-4 cups of hot water with lemon, apple cider vinegar, honey and cinnamon and she has been feeling better since and back to normal. Constipation is better and denies any blood in the stool. On a micro dose of suboxone and trying to taper. Not taking Amitiza since it was causing diarrhea. 03/03/23 Start Famotidine at bedtime for GERD symptoms Resume Linzess 72 mcg daily for constipation 07/14/23 OPTI greens and OPTI reds for bloating (supports immune system, contains digestive enzymes and probiotics) - helps with bloating. Symptoms improved and stopped taking Famotidine and Linzess Option for further evaluation with an EGD or barium swallow were reviewed with the pt. She will monitor her symptoms for now and may schedule after her next FU visit 01/12/24 Pt advised to continue Prevacid 15 mg daily for GERD and resume taking Linzess 72 mcg daily Pt is scheduled for an EGD on 04/20/24 (advised to add same day flexible sigmoidoscopy for evaluation of rectal bleeding) 05/18/24 Pt scheduled for EGD and Flex Sig on 04/20/24 and unable to have the procedures due to inability to start an IV line (tried 8 times and arms were bruised) She will be rescheduled for EGD and Flexible sigmoidoscopy (She will have a midline placed by IR morning of the procedure) FU in 6 weeks Medications: New cholecalciferol (vitamin D3) 250 mcg PO 2XW 26 caps 1RF 90 days E55.9 - Vitamin D deficiency, unspecified Coding Level of Care Code Est Pt Level 4 (45970) Diagnoses Constipation K59.00 GERD (gastroesophageal reflux disease) K21.9 Vitamin D deficiency E55.9 Time Spent (min) 21
[2024-05-18 07:39] VITALS: BP 101/55; PULSE 71; BMI 28.0
== END 2024-05-18 09:13 | disposition home or self-care (01) ==
PROVIDERS: PCP Nurse Practitioner Family; Visit Provider Internal Medicine Gastroenterology
DX: K59.00 Constipation, unspecified (principal); K21.9 Gastro-esophageal reflux disease without esophagitis; E55.9 Vitamin D deficiency, unspecified
CPT/HCPCS: 99214

== ENCOUNTER → 2024-05-18 07:29 | Outpatient (BNVA) | payer OTHER, SELFPAY | PROVIDERS: PCP Nurse Practitioner Family; Visit Provider Internal Medicine Gastroenterology | DX: K59.00 Constipation, unspecified (principal); K92.1 Melena; K21.9 Gastro-esophageal reflux disease without esophagitis; E55.9 Vitamin D deficiency, unspecified; R14.0 Abdominal distension (gaseous) | CPT/HCPCS: 99212 ==

== ENCOUNTER 2024-06-14 12:12 | Outpatient (AMB) | payer OTHER, SELFPAY ==
--- NOTE | 2024-06-14 13:14 | AM.OFFWIN_ITS ---
Intake Vital Signs 3 06/14/24 13:16 Height 5 ft 7 in Weight 175 lb BMI 27.4 BP 104/64 Blood Pressure Location Rt brachial Position Sitting Pulse 66 Pulse Source Pulse Oximeter Pulse Oximetry (%) 98 Oxygen Delivery Method Room Air Intake Visit Reasons: EP LT ear eczema? Intake Note: Patient here for left ear crust that has been present for a few weeks. She states when she peels it, it has a smell to it and nothing is helping it. Patient Tobacco Use Status: Former Tobacco user Allergies No Known Allergies [No Known Allergies*] Allergy (Verified 05/18/24 07:34) Do you need a note to return to daycare/school/sports/work: No HPI HPI Comments 2 History of Present Illness0 Details Patient is a 29-year-old female complaining of couple of weeks of left ear itching. She states that just below her left earlobe, she has an area of dryness that she keeps peeling off. She states it is has a little bit of a bad smell to it. And then all of a sudden it crusts back up again. She has tried Vaseline, triple antibiotic cream and few other creams with no relief. She denies any change in her hearing, ear pain or pain on the bone behind her ear or fevers. [facility] Medical History Drug abuse Syphilis Vitamin D deficiency GERD (gastroesophageal reflux disease) Chronic constipation Anxiety and depression Opioid use disorder Scoliosis Sleep disturbance Surgical History No pertinent past surgical history Family History Father Alcoholism Mother No problems noted. Maternal Grandfather Brain tumor Sister No problems noted. Social History Household Members: None Housing: Apartment Are you a primary administrator health care facility to a significant other at home: No Do you presently have visiting nurse or other home services: No Alcohol intake: current Alcohol intake frequency: holidays/special occasions only Alcohol type: beer and wine Patient Tobacco Use Status: Former Tobacco user Tobacco use type: Smokeless Tobacco Cigarettes Per Day: 2 Years Smoked: 2 years e-Cigarette/Vaping Use: Currently Using service: No Current occupational status: employed Current occupation: N Current occupational exposures/hazards: No Cognitive needs: No Hearing needs: No Vision needs: No Female Reproductive History Menstrual Age of Menarche: 13 Review of Systems Const All systems reviewed & are unremarkable except as noted in HPI and below Physical Exam Vital Signs: Last Vital Signs Pulse 66 06/14/24 13:16 BP 104/64 06/14/24 13:16 Pulse Ox 98 06/14/24 13:16 Oxygen Delivery Method Room Air 06/14/24 13:16 BMI result Body Mass Index 27.4 Const General: cooperative, healthy appearing, comfortable and no acute distress Orientation/consciousness: patient oriented x3 Limitations: no limitations HEENT Head: Yes normal to inspection Ears: hearing grossly normal bilaterally, external ears normal, TM's normal bilaterally and mastoids normal bilaterally nontender Outer ear/TM images: 2 1. dry skin with slight erythema, no warmth or other signs of infection noted General nose exam: Normal external nose present Face and sinus: Yes normal facial exam Eyes General: appearance normal, both eyes and all related structures Neck Neck: Yes normal visual inspection Resp Effort & Inspection: normal respiratory effort, able to speak in complete sentences, no respiratory distress, not tachypneic, no tripod positioning and no use of accessory muscles Skin General skin exam: no rashes or lesions noted Neuro General: patient oriented x3 Extrem General: Yes normal to inspection and Yes no clubbing, cyanosis or edema Assessment & Plan Assessment & Plan (1) Eczema of external ear: Code(s): H60.549 - Acute eczematoid otitis externa, unspecified ear Qualifiers: Laterality: left Qualified Code(s): H60.542 - Acute eczematoid otitis externa, left ear Plan: Recommended using [id number] hydrocortisone cream twice a day for 7-10 days. If it makes it worse, she could try an antifungal as a backup plan but I think this is eczema in the hydrocortisone will work. If she tries both things and neither 1 works, she should follow up with her PCP. Plan See above Coding Level of Care Code Est Pt Level 3 (80105) Diagnoses Eczema of left external ear H60.542 Laterality: left
[2024-06-14 13:16] VITALS: BP 104/64; PULSE 66; O2SAT 98; BMI 27.4
== END 2024-06-14 13:29 | disposition home or self-care (01) ==
PROVIDERS: PCP Nurse Practitioner Family; Visit Provider Physician Assistant
DX: H60.542 Acute eczematoid otitis externa, left ear (principal)

== ENCOUNTER → 2024-06-14 12:12 | Outpatient (BNVA) | payer OTHER, SELFPAY | PROVIDERS: PCP Nurse Practitioner Family; Visit Provider Physician Assistant | DX: H60.542 Acute eczematoid otitis externa, left ear (principal) | CPT/HCPCS: 99212 ==

== ENCOUNTER 2024-06-26 07:11 | Day surgery (SDC) | payer OTHER, SELFPAY ==
--- NOTE | 2024-06-25 11:45 | HO.ANESPROP2 ---
HPI - Anesthesia Eval Consult details Narrative: 29yo F for Upper Endoscopy, Sigmoidoscopy Flexible Difficult IV start/Hx IVDA - none for 5 years, methadone daily PMFSH Active Problems Active Problems: All Active Problems Eczema of external ear (Acute) Eczema (Acute) Strep pharyngitis (Acute) Insomnia (Acute) Easy bruising (Acute) Fatigue (Acute) Panic attacks (Acute) Illness (Acute) control counseling (Acute) Folliculitis (Acute) Sinusitis (Acute) Pharyngitis (Acute) Exposure to gonorrhea (Acute) Vaginal discharge (Acute) Constipation (Acute) Potential exposure to STD (Acute) Problematic vaginal discharge (Acute) Well woman exam with routine gynecological exam (Acute) Cervical cancer screening (Acute) Physical exam (Acute) Depot contraception (Acute) Vitamin D deficiency (Acute) Drug abuse (Acute) GERD (gastroesophageal reflux disease) (Acute) Anxiety and depression (Acute) Opioid use disorder (Acute) Past Medical History Medical History Hepatitis C Syphilis Vitamin D deficiency GERD (gastroesophageal reflux disease) Chronic constipation Anxiety and depression Drug abuse Opioid use disorder Scoliosis Sleep disturbance Family History Family History Father Alcoholism Mother No problems noted. Maternal Grandfather Brain tumor Sister No problems noted. Family history of problems with anesthesia: No Surgical History Surgical History No pertinent past surgical history History of Problems with Anesthesia: No Social History Social History Household Members: None Housing: Apartment Are you a primary long term care social worker to a significant other at home: No Do you presently have visiting nurse or other home services: No Alcohol intake: current Alcohol intake frequency: holidays/special occasions only Alcohol type: beer and wine Patient Tobacco Use Status: Former Tobacco user Tobacco use type: Smokeless Tobacco Cigarettes Per Day: 2 Years Smoked: 2 years e-Cigarette/Vaping Use: Currently Using Have you been hit, kicked, punched, or otherwise hurt by someone within the past year? If so, by whom?: No Are you DNR?: No Advance Directives: No Advance Directives Information Provided: Yes Recently lost weight without trying: No Nutrition Risks: No Nutritional Risk FDLMP: 3 weeks ago service: No Current occupational status: employed Current occupation: N Current occupational exposures/hazards: No Cognitive needs: No Hearing needs: No Vision needs: No Meds Allergies Allergy/AdvReac Type Severity Reaction Status Date / Time No Known Allergies Allergy Verified 06/26/24 08:43 [No Known Allergies*] Home Medications ?Medication ?Instructions ?Recorded ?Confirmed ?Last Taken ?Type clonidine HCl 0.1 mg tablet 0.1 mg PO TID PRN Anxiety 05/10/24 06/26/24 Unknown History trazodone 100 mg tablet 50 mg PO BEDTIME PRN sleep 05/10/24 06/26/24 Unknown History methadone 10 mg/mL oral 30 mg PO DAILY 06/14/24 06/26/24 Unknown History concentrate (Methadone Intensol) Exam Pertinent Lab Results Pertinent Lab Results: Laboratory Tests 02/01/24 12:50 WBC 7.1 Hgb 13.2 Hct 40.2 Plt Count 259 Sodium 137 Potassium 3.9 Chloride 105 Carbon Dioxide 19 L BUN 6 L Creatinine 0.68 Assessment and Plan Assessment Anesthesia Assessment: Chart Reviewed Final Anesthetic Review Family History of Problems with Anesthesia: No History of Problems with Anesthesia: No
[2024-06-26 07:30] VITALS: BP 127/93; PULSE 74; RESP 18; TEMP 36.4; O2SAT 96
[2024-06-26 07:35] LABS: UPreg QC Valid YES; Urine Pregnancy NEGATIVE (NEGATIVE)
[2024-06-26] MEDS: Lactated Ringers 1,000 ML 100 ML IVCONT (09:00)
--- NOTE | 2024-06-26 09:03 | HO.MIDLINE_ITS ---
Midline Insertion MIDLINE INSERTION Diagnosis: Upper and lower endoscopy Indication: difficult IV access Pertinent Labs: reviewed Technique: Using sterile technique including cap and mask, glove and drape, the right arm was prepped and draped in the usual sterile fashion of full barrier technique with [facility]. Using ultrasound guidance, right basilic vein access was obtained . 20g x 8cm midline catheter was positioned. The procedure was performed in [facility]. Ultrasound was used to document vein patency and for needle entry. A formal ultrasound picture was recorded. Vascular Bicycle Technician has released the line for use and it is currently dressed with a StatLock, Tegaderm, and CHG disc. Verification has been performed for blood return and line patency. Arm Circumference: 32cm Equipment: BARD PowerGlide ST midline catheter Catheter Type: 20G x8cm Lot #: [id number]
[2024-06-26 09:10] VITALS: BMI 27.6
--- NOTE | 2024-06-26 09:18 | PC.NURSE ---
Mid line placed in radiology department, see their documentation.
--- NOTE | 2024-06-26 09:33 | MHC.SHP ---
Pre-Procedural Eval Section A - 24 Hr Update-Section A only Date of Service: 06/26/24 The patient is an INPATIENT: No The patient has been examined within 24 hours of the surgical procedure. The History & Physical has been completed within 30 days and I have reviewed it.: No Section B - Complete if H&P > 30 days Chief Complaint: gerd,abd pain, rectal bleed Relevant Family History (Specify if Yes): No Relevant Social History: Tobacco Use (Former smoker) Present Medications: see Short Stay Collaborative assessment Medical History: Significant History (Hepatitis C Syphilis Vitamin D deficiency GERD (gastroesophageal reflux disease) Chronic constipation Anxiety and depression Drug abuse Opioid use disorder Scoliosis) History of Previous Operations: No relevant previous surgery Allergies: Allergies Allergy/AdvReac Type Severity Reaction Status Date / Time No Known Allergies Allergy Verified 06/26/24 08:43 [No Known Allergies*] Review of Systems Sugical H&P ROS: Negative: Constitution, Cardiovascular and Respiratory and Yes, Specify: Gastrointestinal (constipation, abd pain) Exam Surgical H&P Exam: Normal: Heart, Normal: Lungs, Normal: Extremities and Normal: Abdomen Plan Diagnosis/Plan: Change (proceed with colonoscopy instead of flex sig) I have reviewed the history and physical and performed a pertinent physical examination on my patient. No changes have occurred unless specified. Time Spent With Patient Time: Total time managing care of this patient today ____ minutes.
--- NOTE | 2024-06-26 10:03 | P.OPN-COLO_ITS ---
Colonoscopy Operative Note Operative Note Date of Service: 06/26/24 Narrative: FLEXIBLE TRANSORAL UPPER GASTROINTESTINAL ENDOSCOPY WITH BIOPSIES AND COLONOSCOPY TILL CECUM WITH BIOPSIES Pre-op diagnosis: GERD, abd pain, constipation, rectal bleeding Post-op diagnosis: Esophagitis, Gastritis, Duodenitis, Colon Polyps, Diverticulosis, hemorrhoids Endoscopist:? Roge Arthur MD Anesthesia:?MAC UPPER ENDOSCOPY Consent: Indications for the procedure and potential complications of bleeding, perforation, reaction to medications and missed diagnosis were discussed with the patient and informed consent was obtained. Instrument: Olympus GIF H 190 mid size upper endoscope Monitoring: Vital signs and clinical assessment, continuous EKG monitoring, Pulse oximetry, Carbon Dioxide monitoring and blood pressure monitoring were done throughout the procedure. Procedure: The patient was placed in the left lateral decubitis position and pre-procedure medications were administered and a bite block was placed. The endoscope was inserted into the mouth and advanced under direct vision to the third part of duodenum. A careful inspection was made as the upper endoscope was withdrawn including a retroflexed examination of the proximal stomach; Findings and interventions are described below. Findings: Larynx: Normal Esophagus: GE junction at 35 cms. Mild focal esophagitis at GE junction (LA Grade A). No Zaldivar's. Stomach: Moderate diffuse gastric erythema - biopsies were obtained from the gastric body and antrum. Grade 2 flap valve on retroflexed examination of the cardia. Duodenum: Mild duodenitis in the bulb and normal descending duodenum Biopsies were obtained from descending duodenum to check for celiac sprue Intervention: Biopsies as noted above COLONOSCOPY PROCEDURE NOTE Instrument: Olympus PCF H 190 L variable stiffness pediatric colonoscope Monitoring: Vital signs and clinical assessment, intermittent blood pressure monitoring, continuous EKG monitoring, Pulse oximetry and Carbon Dioxide monitoring were done throughout the procedure. Please see anesthesia flowsheet. Colon withdrawl time was 23 minutes. Procedure: The patient was placed in the left lateral decubitis position and pre-procedure medications were administered. After a digital rectal examination of the ano-rectum, the video colonoscope was inserted into the rectum and advanced through the colon to the cecum. The colonoscope was slowly withdrawn in a retrograde panoramic fashion and the colon mucosa was carefully examined including a retroflexed view of the rectum. Findings and interventions are described below. Procedure Difficulty: Colon was long and tortuous and there was spasm and some loop formation Findings: Terminal Ileum: Not evaluated Cecum: Normal Ascending Colon: Normal Transverse Colon: Normal Descending Colon: Normal Sigmoid Colon: Normal Rectum: Normal Ano-rectum: Small non-bleeding internal hemorrhoids Colon preparation: Good after copious irrigation. [place] Bowel Preparation Scale Right colon; 2 Transverse colon: 2 Left colon; 2 (0 = Unprepared colon segment with mucosa not seen due to solid stool that cannot be cleared. 1 = Portion of mucosa of the colon segment seen, but other areas of the colon segment not well seen due to staining, residual stool and/or opaque liquid. 2 = Minor amount of residual staining, small fragments of stool and/or opaque liquid, but mucosa of colon segment seen well. 3 = Entire mucosa of colon segment seen well with no residual staining, small fragments of stool or opaque liquid) Impression and Post Procedure Diagnosis: Endoscopy Findings: ESOPHAGUS: STOMACH: DUODENUM: Colonoscopy Findings: No polyps were detected Random biopsies were obtained from right and left colon to check for microscopic colitis small non-bleeding internal hemorrhoids on antegrade exam. Plan: Pt has a FU appointment on 08/09/[address] Arthur Repeat Colonoscopy in 17 years if colon biopsies are normal. Above findings were reviewed with the patient and relevant handouts were given and the discharge area. BIOPSIES SHOWED: A. Small bowel, biopsy: Small intestinal mucosa within normal limits. B. Stomach, antrum, biopsy: Antral-type mucosa with mild chronic inactive inflammation; no Helicobacter organisms seen. C. Stomach, body, biopsy: Oxyntic mucosa with mild chronic inactive inflammation; no Helicobacter organisms seen. D. Colon, right, biopsy: Colonic mucosa within normal limits. E. Colon, left, biopsy: Hyperplastic mucosal polyp. Patient placed on colonoscopy recall list for repeat colonoscopy in 17 years
[2024-06-26 10:49] VITALS: BP 117/78; PULSE 79; RESP 16; TEMP 36.1; O2SAT 98
[2024-06-26 11:04] VITALS: BP 120/84; PULSE 74; RESP 20; TEMP 36.2; O2SAT 98
== END 2024-06-26 11:21 | disposition home or self-care (01) ==
PROVIDERS: Nurse Practitioner; PCP Nurse Practitioner Family; Visit Provider Internal Medicine Gastroenterology
PROC: 0DJ08ZZ Inspection of Upper Intestinal Tract, Via Natural or Artificial Opening Endoscopic (ICD-10-PCS; CPT 43235; principal; 2024-06-26 10:10)
PROC: 0DJD8ZZ Inspection of Lower Intestinal Tract, Via Natural or Artificial Opening Endoscopic (ICD-10-PCS; CPT 45330; 2024-06-26 10:10)
DX: K62.5 Hemorrhage of anus and rectum (principal); K63.5 Polyp of colon; K57.30 Diverticulosis of large intestine without perforation or abscess without bleeding; K64.8 Other hemorrhoids; K59.09 Other constipation; R10.9 Unspecified abdominal pain; K21.9 Gastro-esophageal reflux disease without esophagitis; K20.80 Other esophagitis without bleeding; K31.7 Polyp of stomach and duodenum; K29.50 Unspecified chronic gastritis without bleeding; B19.20 Unspecified viral hepatitis C without hepatic coma; A53.9 Syphilis, unspecified; E55.9 Vitamin D deficiency, unspecified; F41.8 Other specified anxiety disorders; Z79.899 Other long term (current) drug therapy; F11.90 Opioid use, unspecified, uncomplicated; Z87.891 Personal history of nicotine dependence
CPT/HCPCS: 45380; 43239; 36410; 81025; 88305; 88313; 88342; J1596; J2003; J2405; J2704

== ENCOUNTER → 2024-06-26 07:11 | Outpatient (BNV) | payer OTHER, SELFPAY | PROVIDERS: PCP Nurse Practitioner Family; Visit Provider Internal Medicine Gastroenterology | DX: K21.00 Gastro-esophageal reflux disease with esophagitis, without bleeding (principal); K29.80 Duodenitis without bleeding; K29.70 Gastritis, unspecified, without bleeding; K63.5 Polyp of colon; K64.8 Other hemorrhoids | CPT/HCPCS: 43239; 45380 ==

== ENCOUNTER 2024-08-09 08:38 | Outpatient (AMB) | payer OTHER, SELFPAY ==
--- NOTE | 2024-08-09 08:42 | MHC.OFFVIS ---
Vital Signs 08/09/24 08:51 Height 5 ft 7 in Weight 170 lb BMI 26.6 BP 119/64 Blood Pressure Location Lt brachial Position Sitting Pulse 80 Intake Visit Reasons: s/p egd/sigmoid Intake Note: Patient follow up for Constipation and EGD/Colonoscopy results. Patient cc: abdominal pain with bloating, constipation with some bloody stool. Patient is asking for Linzess refill to be send to pharmacy. Ham Stringer Required: No Accompanied by: Self / Same As Patient Allergies No Known Allergies [No Known Allergies*] Allergy (Verified 08/09/24 17:21) Medication List - Last Reconciled 08/09/24 by Roge Arthur MD betamethasone valerate 0.1% 1 appl topical DAILY cholecalciferol (vitamin D3) 250 mcg PO 2XW 90 days clonidine HCl 0.1 mg PO TID PRN ibuprofen 800 mg PO Q8H PRN 30 days levonorgestrel-ethinyl estrad 0.15 mg-30 mcg (91) (Jolessa) 1 tab PO DAILY lorazepam 0.5 mg PO DAILY PRN 20 days methadone (Methadone Intensol) 30 mg PO DAILY trazodone 50 mg PO BEDTIME PRN HPI HPI s/p egd/sigmoid: Details: GI clinic visit for this 29-year-old female for follow-up hep C genotype 1a - treated in the past with Mavyret x 8 weeks. (She missed 2-3 weeks of treatment and hepatitis C viral load was negative at the end of treatment and at 1 year FU testing. Pt has been followed by Dr Grissom since 04/2018. TODAY'S VISIT: Patient cc: Abdominal pain with bloating, constipation with some bloody stool. Patient is asking for Linzess refill to be send to pharmacy - refill sent EGD and colon results were reviewed with the patient PAST VISIT: Unable to have EGD and Colon due to inability to start an IV line (tried 8 times and arms were bruised) Denies using IV drugs in 2 years. Working at [employer] (in patient Rehab) in [place]. Continues to have constipation Taking greens and reds and is able to have a BM when she takes them Abdominal pains and intermittent rectal bleeding Took Linzess for 4 days and had abdominal cramps. 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 Has a BM 1-2 times a week - hard stools associated with straining. Notes rectal bleeding with passage of large BM. Notes BRB on the surface of the stool - unable to tell if there is blood mixed with the stool. Wakes up with stabbing lower abdominal pain - improves after she has a BM. Not taking the supplements since April last year and stopped the workout program she had enrolled in. Tapering Methadone - tapering by 5 mg every 3 days Taking Prevacid with adequate control of heartburn. Takes Gabapentin 1-2 times a month for anxiety. Patient cc: chronic morning abdominal pain and bloating, constipation with some blood spot. Denies any other GI issues. Started taking a supplement - OPTI greens and OPTI reds for bloating (supports immune system, contains digestive enzymes and probiotics) - helps with bloating. Symptoms improved and stopped taking Famotidine and Linzess She was getting acid reflux at night since she was eating ice-cream and candy at bedtime Takes TUMS once a week for acid reflux - upto 10 tablets Has a BM once a day Denies rectal bleeding. 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 She was seen at [facility] on 11/06/21 with above symptoms Unable to keep anything down. Has been feeling better and back to normal for the past week. Has been drinking 3-4 cups of hot water with lemon, apple cider vinegar, honey and cinnamon Above symptoms have resolved since she started drinking hot water with apple cider vinegar Constipation is better and denies any blood in the stool. On a micro dose of suboxone and trying to taper. Not taking Amitiza since it was causing diarrhea. Pt is accompanied by her GM. Worsening constipation for the past 3 months. Has a BM once a week and takes MOM when she starts getting bad stomach pains and unable to poop. Notes rectal bleeding every time she has a BM. Blood was bright red and mixed with the stool. after taking several doses of MOM, she gets diarrhea and does not see any blood. Has hard stools and has to disimpact by digital manipulation. Has tried stool softeners and Miralax which did not work. Has noted bad acid reflux for the past 2-3 weeks - can start in the middle of the night. Has nausea, regurgitation and burning in her throat. Has to cut food in smaller pieces due to swallowing difficulty. Complains of abdominal pain and is very constipated. Has a sharp stabbing pain when she tries to have a BM. Has a BM once a week and it hurts to have a BM. Stool are hards and notes some dark blood on wiping. Has issues going to the bathroom since childhood. Also has heartburn.? Stomach hurts every time she tries to eat. Has gained 40 lbs in the last 6 months. Patient denies major cardiac or pulmonary problems, loud snoring or sleep apnea Has trouble sleeping and only able to sleep 2 hrs at a time. Denies having any surgeries in the past. Takes Ibuprofen 4-5 times a week for migraine JAMES and joint pains. Denies being on chronic anticoagulation. Patient denies known family history of colon polyps, colon cancer or other GI malignancies. Lives by herself and has no children. 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 IMAGING STUDIES:? 11/06/21 abdominal ultrasound showed: Normal-appearing gallbladder. Echogenic liver. PAST EGD/COLONOSCOPY:? 06/26/24 EGD AND FLEXIBLE SIGMOIDOSCOPY SHOWED: Endoscopy Findings: ESOPHAGUS: Focal esophagitis STOMACH: Gastritis DUODENUM: Duodenitis in the bulb Colonoscopy Findings: No polyps were detected Random biopsies were obtained from right and left colon to check for microscopic colitis Small non-bleeding internal hemorrhoids on antegrade exam. Plan: Repeat Colonoscopy in 17 years if colon biopsies are normal. Above findings were reviewed with the patient and relevant handouts were given and the discharge area. BIOPSIES SHOWED: A. Small bowel, biopsy: Small intestinal mucosa within normal limits. B. Stomach, antrum, biopsy: Antral-type mucosa with mild chronic inactive inflammation; no Helicobacter organisms seen. C. Stomach, body, biopsy: Oxyntic mucosa with mild chronic inactive inflammation; no Helicobacter organisms seen. D. Colon, right, biopsy: Colonic mucosa within normal limits. E. Colon, left, biopsy: Hyperplastic mucosal polyp. Patient placed on colonoscopy recall list for repeat colonoscopy in 17 years [facility] Medical History Hepatitis C Syphilis Vitamin D deficiency GERD (gastroesophageal reflux disease) Chronic constipation Anxiety and depression Drug abuse Opioid use disorder Scoliosis Sleep disturbance Surgical History Hx of endoscopy Hx of colonoscopy No pertinent past surgical history Family History Father Alcoholism Mother No problems noted. Maternal Grandfather Brain tumor Sister No problems noted. Social History Household Members: None Housing: Apartment Are you a primary child care supervisor to a significant other at home: No Do you presently have visiting nurse or other home services: No Alcohol intake: current Alcohol intake frequency: holidays/special occasions only Alcohol type: beer and wine Patient Tobacco Use Status: Former Tobacco user Tobacco use type: Smokeless Tobacco Cigarettes Per Day: 2 Years Smoked: 2 years e-Cigarette/Vaping Use: Currently Using service: No Current occupational status: employed Current occupation: [employer] Current occupational exposures/hazards: No Cognitive needs: No Hearing needs: No Vision needs: No Female Reproductive History Menstrual Age of Menarche: 13 Review of Systems Const All systems reviewed & are unremarkable except as noted in HPI and below Physical Exam Vital Signs: Last Vital Signs Pulse 80 08/09/24 08:51 BP 119/64 08/09/24 08:51 BMI result Body Mass Index 26.6 Const General: healthy appearing and no acute distress Nutritional Appearance: overweight Orientation/consciousness: patient oriented x3 Limitations: no limitations HEENT Head: Yes normal to inspection Ears: hearing grossly normal bilaterally Eyes Sclerae: sclerae normal Pupils: Equal, round and reactive pupils present Neck Neck: Yes normal visual inspection Chest Chest palpation & inspection: normal inspection of the chest Resp Effort & Inspection: normal respiratory effort Auscultation: clear to auscultation bilaterally Cardio Palpation: normal PMI Rate: regular rate Rhythm: regular rhythm Heart sounds: S1 normal heart sound present, S2 normal heart sound present and no murmurs GI Palpation (GI): Soft to palpation, nontender and No hepatosplenomegaly present Auscultation: normal bowel sounds Rectal Exam - Female: deferred Skin General skin exam: no rashes or lesions noted Neuro General: patient oriented x3, gait normal and moves all extremities Cranial nerves: Yes Equal, round and reactive pupils present Psych Appearance: grossly normal Mental Status: mental status grossly normal Assessment & Plan Assessment & Plan (1) Constipation: Code(s): K59.00 - Constipation, unspecified Category: Medical (2) GERD (gastroesophageal reflux disease): Code(s): K21.9 - Gastro-esophageal reflux disease without esophagitis Category: Medical (3) Vitamin D deficiency: Code(s): E55.9 - Vitamin D deficiency, unspecified Category: Medical Plan 29 YF with hx of drug abuse, hepatitis C (treated successfully with Mavyret in 2019) and chronic constipation. Pt complains of abdominal pain associated with worsening constipation, wt gain and rectal bleeding associated with straining during a?BM. Pt was advised to take MOM followed by Shena every day for constipation. She will be scheduled for a follow-up appointment in 8 weeks. Pt was reminded to have labs checked - order placed by her PCP. ADDENDUM: KUB results were reviewed with the patient. Linaclotide has been working well - having a BM daily to every other day. Notes decrease in rectal bleeding Patient was advised to continue above medications and keep follow-up appointment in October 2019. She was seen at [facility] on 11/06/21 with abdominal pain, nausea and vomiting which lasted over a month. Unable to keep anything down. She started drinking 3-4 cups of hot water with lemon, apple cider vinegar, honey and cinnamon and she has been feeling better since and back to normal. Constipation is better and denies any blood in the stool. On a micro dose of suboxone and trying to taper. Not taking Amitiza since it was causing diarrhea. 03/03/23 Start Famotidine at bedtime for GERD symptoms Resume Linzess 72 mcg daily for constipation 07/14/23 OPTI greens and OPTI reds for bloating (supports immune system, contains digestive enzymes and probiotics) - helps with bloating. Symptoms improved and stopped taking Famotidine and Linzess Option for further evaluation with an EGD or barium swallow were reviewed with the pt. She will monitor her symptoms for now and may schedule after her next FU visit 01/12/24 Pt advised to continue Prevacid 15 mg daily for GERD and resume taking Linzess 72 mcg daily Pt is scheduled for an EGD on 04/20/24 (advised to add same day flexible sigmoidoscopy for evaluation of rectal bleeding) 05/18/24 Pt scheduled for EGD and Flex Sig on 04/20/24 and unable to have the procedures due to inability to start an IV line (tried 8 times and arms were bruised) She will be rescheduled for EGD and colonoscopy (She will have a midline placed by IR morning of the procedure) 06/26/24 EGD and colon were performed and findings as noted FU in 4 months Orders: Orders Vitamin D 25-OH Total Today E55.9 - Vitamin D deficiency, unspecified Medications: New linaclotide (Linzess) 145 mcg PO QAM 30 days 30 caps 3RF K59.00 - Constipation, unspecified Refilled cholecalciferol (vitamin D3) 250 mcg PO 2XW 90 days 26 caps 1RF E55.9 - Vitamin D deficiency, unspecified Coding Level of Care Code Est Pt Level 4 (63867) Diagnoses Constipation K59.00 GERD (gastroesophageal reflux disease) K21.9 Vitamin D deficiency E55.9 Time Spent (min) 24
[2024-08-09 08:51] VITALS: BP 119/64; PULSE 80; BMI 26.6
== END 2024-08-09 09:11 | disposition home or self-care (01) ==
PROVIDERS: PCP Nurse Practitioner Family; Visit Provider Internal Medicine Gastroenterology
DX: K59.00 Constipation, unspecified (principal); K21.9 Gastro-esophageal reflux disease without esophagitis; E55.9 Vitamin D deficiency, unspecified
CPT/HCPCS: 99214

== ENCOUNTER → 2024-08-09 08:38 | Outpatient (BNVA) | payer OTHER, SELFPAY | PROVIDERS: PCP Nurse Practitioner Family; Visit Provider Internal Medicine Gastroenterology | DX: K59.00 Constipation, unspecified (principal); K21.9 Gastro-esophageal reflux disease without esophagitis; E55.9 Vitamin D deficiency, unspecified; L30.9 Dermatitis, unspecified; H60.542 Acute eczematoid otitis externa, left ear; M54.50 Low back pain, unspecified; U07.0 Vaping-related disorder; R07.89 Other chest pain | CPT/HCPCS: 99212 ==

== ENCOUNTER 2024-08-09 13:48 | Outpatient (AMB) | payer OTHER, SELFPAY ==
[2024-08-09 13:51] VITALS: BP 120/66; PULSE 80; O2SAT 98; BMI 26.6
--- NOTE | 2024-08-09 13:51 | A.OFFPC_ITS ---
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 Required: No Allergies No Known Allergies [No Known Allergies*] Allergy (Verified 08/09/24 17:21) Medication List - Last Reconciled 08/09/24 by DELFINA Amador betamethasone valerate 0.1% 1 appl topical DAILY cholecalciferol (vitamin D3) 250 mcg PO 2XW 90 days clonidine HCl 0.1 mg PO TID PRN ibuprofen 800 mg PO Q8H PRN 30 days levonorgestrel-ethinyl estrad 0.15 mg-30 mcg (91) (Jolessa) 1 tab PO DAILY linaclotide (Linzess) 145 mcg PO QAM 30 days lorazepam 0.5 mg PO DAILY PRN 20 days methadone (Methadone Intensol) 30 mg PO DAILY trazodone 50 mg PO BEDTIME PRN Tobacco use date assessed: 09/01/23 Dental Screening Dental Screen Date: 09/01/23 HPI 3 months HPI Details Chief Complaint Multiple ongoing health issues including eczema, back pain, constipation, and anxiety. History of Present Illness The patient is a 29-year-old female presenting with several concerns, including eczema. The eczema is located on her left ear, persisting despite trying various treatments, including prescribed medication, [id number] products, and natural remedies. She has a family history of eczema but has not consulted a senior publications specialist. She also reports chronic lower back pain primarily affecting her lower back, which is most severe when lying down at night, impacting her sleep. She has attempted massages, positional changes during sleep, and ibuprofen, which is contraindicated due to her gastrointestinal sensitivity. The pain is sometimes accompanied by shooting pains to her buttocks and legs, although this is less frequent. Additionally, she experiences severe constipation, worsened by methadone treatment, making bowel movements infrequent and laborious. A colonoscopy was recently performed. The patient has undergone a significant reduction in methadone dosage from 180 mg to 35 mg over eight months. She reports non-existent panic attacks until about a month ago when symptoms resumed. Vaping cessation efforts have been challenging, with attempts at patches, gum, and herbal remedies proving ineffective. She reports wheezing during sleep, which may be related to vaping or an undiagnosed asthma component. Social History - Engaged in full-time work while attend ing school full-time. - Caring for her grandmother. - Reports difficulty in quitting vaping despite multiple methods. - Drinks wine occasionally due to work s tress. - Successfully reduced methadone mainten ance therapy dosage. - Achieving high grades in school, excit ed for upcoming graduation. Health Maintenance - Discussion surrounding the potential n eed for a senior publications specialist. - Recommendations for reducing vaping an d related risks. - Provided advice on addressing methadon e-induced constipation. Review of Systems - Constitutional: Reports panic attacks returning recently. - Respiratory: Reports wheezing at night ; denies history of asthma. - Musculoskeletal: Reports chronic lower back pain primarily at night, with occasional shooting pains to buttocks and legs. - Gastrointestinal: Reports chronic cons tipation, especially since starting methadone. - Dermatological: Reports persistent ecz iliana on the left ear. Physical Exam General: Cooperative, healthy appearing, comfortable, no acute distress and well developed Orientation: Patient oriented x3 Limitations: No limitations Head: Normal to inspection Ears: Hearing grossly normal bilaterally, eczema noted on left ear (posterior aspect) Nose: Normal external nose present Face and sinus: Normal facial exam Eyes: Appearance normal, both eyes and all related structures Neck: Normal visual inspection and Yes full ROM Respiratory: Wheezing noted at night, otherwise normal respiratory effort and able to speak in complete sentences. Clear to auscultation bilaterally Cardiovascular: Regular rate and rhythm. Normal S1 and S2 GI: Normal to inspection. Soft to palpation and nontender, but patient reports constipation Skin: No rashes or lesions noted, except for eczema on left ear Neuro: Patient oriented x3 Extremities: Normal to inspection, negative straight leg test, good patellar reflexes, able to walk on heels and toes without issue Results - Labs: Colonoscopy performed last month ; results not detailed in conversation. Plan - Eczema: Consider dermatology referral for unresolved eczema on the left ear. - Lower back pain: Recommend chiropracti c consultation; note prior referral issues and financial concerns. - Constipation: Acknowledge methadone-in duced exacerbation; discuss gradual methadone dose adjustments. - Anxiety: Note consultation with mental health provider; continue monitoring symptoms. - Vaping cessation: Contacted Yanira chan potential strategies. - Respiratory symptoms: Chest X-ray orde red to assess for underlying issues; suspect costochondritis. Patient was informed and verbally consented to the use of an ambient scribe for clinic note documentation during this visit. Discussion Notes I discussed with the patient her multiple health concerns, providing possible explanations and management strategies. For her persistent eczema, I suggested a dermatology consultation may be beneficial. With her back pain, I recommended seeking a chiropractic evaluation, acknowledging previous difficulties with referrals. We reviewed her methadone regimen and its impact on constipation, emphasizing the chronic nature and recommending a strategic approach to adjusting doses. I reinforced quitting vaping is crucial to improve her respiratory symptoms and mitigate costochondritis, and informed her that Yanira would reach out about cessation options. Additionally, I assured her that her anxiety should be discussed with her mental health provider, but it is commendable that she is successfully managing her daily responsibilities despite these challenges. I also emphasized the importance of taking time off and maintaining her health. Patient Instructions - Consider scheduling an appointment wit h a senior publications specialist for unresolved eczema. - Seek further chiropractic evaluation, recognizing prior insurance barriers. - Persist with vaping cessation attempts and await contact from Yanira for additional strategies. - Monitor anxiety and communicate with entfl health providers as necessary. - Be patient with the pace of methadone reduction to manage constipation better Further reinforced increasing fluids and use of stool softeners. - Return for follow-up if symptoms persi st or worsen. - Implement stress management techniques to cope with daily responsibilities. [facility] Medical History Hepatitis C Syphilis Vitamin D deficiency GERD (gastroesophageal reflux disease) Chronic constipation Anxiety and depression Drug abuse Opioid use disorder Scoliosis Sleep disturbance Surgical History Hx of endoscopy Hx of colonoscopy No pertinent past surgical history Family History Father Alcoholism Mother No problems noted. Maternal Grandfather Brain tumor Sister No problems noted. Social History Household Members: None Housing: Apartment Are you a primary senior care manager to a significant other at home: No Do you presently have visiting nurse or other home services: No Alcohol intake: current Alcohol intake frequency: holidays/special occasions only Alcohol type: beer and wine Patient Tobacco Use Status: Former Tobacco user Tobacco use type: Smokeless Tobacco Cigarettes Per Day: 2 Years Smoked: 2 years e-Cigarette/Vaping Use: Currently Using service: No Current occupational status: employed Current occupation: [employer] Current occupational exposures/hazards: No Cognitive needs: No Hearing needs: No Vision needs: No Female Reproductive History Menstrual Age of Menarche: 13 Questionnaire Thrive Questionnaire Date Thrive assessed: 08/09/24 I am a: Patient What is your living situation today?: I have a steady place to live Within the past 12 months, did the food you bought not last and you didn't have the money to get more?: Never true Within the past 12 months, did you worry whether your food would run out before you got money to buy more?: Never true Do you have trouble paying for medicines?: No Do you have trouble getting transportation to medical appointments?: No Do you have trouble paying your heating and electricity bill?: No Do you have trouble taking care of your child, family member or friend?: No Do you have trouble with day-to-day activities such as bathing, preparing meals, shopping, managing finances, etc.?: No Are you currently unemployed and looking for a job?: No Are you interested in more education?: No Please select the resources that you would like help with: None Currently or been in a relationship where the following occur: I choose not to answer THRIVE Score: 0 ZAINAB-7 AMB Questionnaire ZAINAB-7 Date ZAINAB - 7 assessed: 04/19/24 Source: Developed by Drs. Rogerio Nguyễn, Anuradha Haddad, Srini Bonilla and colleagues, with an educational romie from [employer]. Physical exam (Primary Care) Vital Signs: Last Vital Signs Pulse 80 08/09/24 13:51 BP 120/66 08/09/24 13:51 Pulse Ox 98 08/09/24 13:51 Oxygen Delivery Method Room Air 08/09/24 13:51 BMI result Body Mass Index 26.6 Tobacco/Smoking Status: Tobacco use Status Tobacco use date assessed 09/01/23 08/09/24 13:55 Patient Tobacco Use Status Former Tobacco user 08/09/24 13:55 Tobacco use type Smokeless Tobacco 08/09/24 13:55 e-Cigarette/Vaping Use Currently Using 08/09/24 13:55 Thrive Assessment: Date of Thrive Assessment Date Thrive assessed 08/09/24 08/09/24 13:55 Currently or been in a relationship where the following occur: I choose not to answer Coding Level of Care Code Est Pt Level 4 (36895) Diagnoses Eczema L30.9 Eczema of left external ear H60.542 Laterality: left Lower back pain M54.50 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 Chest discomfort R07.89 Constipation K59.00 Assessment & Plan Assessment & Plan (1) Eczema: Code(s): L30.9 - Dermatitis, unspecified Category: Medical (2) Eczema of external ear: Code(s): H60.549 - Acute eczematoid otitis externa, unspecified ear Category: Medical Qualifiers: Laterality: left Qualified Code(s): H60.542 - Acute eczematoid otitis externa, left ear (3) Lower back pain: Code(s): M54.50 - Low back pain, unspecified Category: Medical (4) Vaping-related disorder: Code(s): U07.0 - Vaping-related disorder Category: Medical (5) Chest discomfort: Code(s): R07.89 - Other chest pain Category: Medical (6) Constipation: Code(s): K59.00 - Constipation, unspecified Category: Medical Plan . Orders: Orders XR chest 2V Today R06.2 - Wheezing, U07.0 - Vaping-related disorder XR lumbar spine 2-3V Today M54.50 - Low back pain, unspecified AMB EKG-In Office Today R07.89 - Other chest pain Referrals Dermatology Referral H60.542 - Acute eczematoid otitis externa, left ear, L30.9 - Dermatitis, unspecified
== END 2024-08-09 14:52 | disposition home or self-care (01) ==
PROVIDERS: PCP Nurse Practitioner Family; Visit Provider Nurse Practitioner Family
DX: L30.9 Dermatitis, unspecified (principal); H60.542 Acute eczematoid otitis externa, left ear; M54.50 Low back pain, unspecified; U07.0 Vaping-related disorder; R07.89 Other chest pain; K59.00 Constipation, unspecified

== ENCOUNTER → 2024-08-16 11:02 | Outpatient (BNVA) | payer OTHER, SELFPAY | PROVIDERS: PCP Nurse Practitioner Family ==

== ENCOUNTER → 2024-08-30 12:02 | Outpatient (BNVA) | payer OTHER, SELFPAY | PROVIDERS: PCP Nurse Practitioner Family ==

== ENCOUNTER 2024-08-31 08:39 | Outpatient (REF) | payer OTHER, SELFPAY ==
--- NOTE | ~2024-08-31 | XR_ITS ---
EXAMINATION: XR CHEST CLINICAL INFORMATION: U07.0 - Vaping-related disorder COMPARISON: X-ray dated November 06, 2021 TECHNIQUE: 2 views of the chest were obtained. FINDINGS: Submitted for interpretation on September 05, 2024. No consolidation pleural effusion or pneumothorax. Cardiomediastinal silhouette is normal in size. S-shaped configuration of the mid thoracic spine. XR/XR chest 2V IMPRESSION: No acute airspace disease. Scoliosis, thoracic spine. Electronically signed by: Demarco Orosco MD 09/05/2024 09:40 AM RALPH
--- NOTE | ~2024-08-31 | XR_ITS ---
EXAMINATION: XR LUMBOSACRAL SPINE CLINICAL INFORMATION: M54.50 - Low back pain, unspecified COMPARISON: None available. TECHNIQUE: Three views of the lumbosacral spine. FINDINGS: No acute cortical disruption or malalignment. No lytic or blastic lesions XR/XR lumbar spine 2-3V IMPRESSION: No acute fracture or listhesis. Electronically signed by: Demarco Orosco MD 09/05/2024 09:53 AM RALPH
[2024-08-31 10:49] LABS: Vitamin D 25-OH Total 79.9 ng/mL (>30)
== END 2024-08-31 08:40 | disposition home or self-care (01) ==
LOC: HO.HMGCLDS 08:39
PROVIDERS: PCP Nurse Practitioner Family; Referring Provider Internal Medicine Gastroenterology; Visit Provider Nurse Practitioner Family
DX: E55.9 Vitamin D deficiency, unspecified (principal); U07.0 Vaping-related disorder; R06.2 Wheezing; M54.50 Low back pain, unspecified
CPT/HCPCS: 36415; 71046; 72100; 82306

== ENCOUNTER → 2024-08-31 08:49 | Outpatient (BNV) | payer OTHER, SELFPAY | PROVIDERS: PCP Nurse Practitioner Family; Referring Provider Internal Medicine Gastroenterology; Visit Provider Radiology Diagnostic Radiology | DX: M54.50 Low back pain, unspecified (principal); R06.2 Wheezing | CPT/HCPCS: 71046; 72100 ==

== ENCOUNTER 2024-10-10 14:25 | Outpatient (AMB) | payer OTHER, SELFPAY ==
--- NOTE | 2024-10-10 14:26 | MHC.OFFVIS ---
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 Doing well with no individual small group instructor concerns. Doing well on control pills and wants refill. Currently is sexually active. She denies vaginal itching and irritation. STI screening offered; she accepts. She tries to eat healthy and stays active with exercise. Working 2 part-time jobs and going to school. Denies family history of breast, ovarian or colon cancer. Last pap smear 2023, negative. She denies any contraindications to control such as: migraines with aura, history of DVT or pulmonary emboli, high blood pressure, liver disease, thrombolic disorders, Lupus, +ELYSE, breast cancer, or smoking (vaping currently). [facility] Medical History (Updated 10/10/24 @ 14:44 by Carmenza Wilson CNM) Hepatitis C Syphilis Vitamin D deficiency GERD (gastroesophageal reflux disease) Chronic constipation Anxiety and depression Drug abuse Opioid use disorder Scoliosis Sleep disturbance Surgical History Hx of endoscopy Hx of colonoscopy No pertinent past surgical history Family History (Updated 10/10/24 @ 14:37 by JANEE Teixeira) Father Alcoholism Mother No problems noted. Maternal Grandfather Aneurysm Sister No problems noted. Social History Household Members: None Housing: Apartment Are you a primary health care specialist to a significant other at home: No Do you presently have visiting nurse or other home services: No Alcohol intake: current Alcohol intake frequency: holidays/special occasions only Alcohol type: beer and wine Patient Tobacco Use Status: Former Tobacco user Tobacco use type: Smokeless Tobacco Cigarettes Per Day: 2 Years Smoked: 2 years e-Cigarette/Vaping Use: Currently Using service: No Current occupational status: employed Current occupation: N Current occupational exposures/hazards: No Cognitive needs: No Hearing needs: No Vision needs: No Female Reproductive History Menstrual Age of Menarche: 13 control method: pills Total pregnancies: 0 Date of last pap smear: 10/04/23 (neg) Review of Systems Const All systems reviewed & are unremarkable except as noted in HPI and below Reports as per HPI Eyes Reports no additional complaints ENT Reports no additional complaints Card Reports no additional complaints Resp Reports no additional complaints GI Reports as per HPI and Reports no additional complaints Reports as per HPI Musc Reports no additional complaints Skin/Breast Reports as per HPI Neuro Reports no additional complaints Psych Reports no additional complaints Endo Reports no additional complaints Kj/Lymph Reports no additional complaints Aller/Immun Reports no additional complaints Physical Exam Vital Signs: Last Vital Signs BP 100/60 10/10/24 14:27 BMI result Body Mass Index 26.6 Const General: cooperative, healthy appearing, no acute distress, well developed and alert Orientation/consciousness: patient oriented x3 HEENT Head: Yes normal to inspection Eyes General: appearance normal, both eyes and all related structures Neck Neck: Yes normal visual inspection Thyroid: Thyroid normal Chest Chest palpation & inspection: normal inspection of the chest and other (no puckering, dimpling, peau de orange, retraction, discharge, masses) Breast/axilla inspection: normal inspection of the breasts Breast/axilla palpation: normal palpation of the breasts Resp Effort & Inspection: normal respiratory effort GI Inspection: Yes normal to inspection Palpation (GI): Soft to palpation Rectal Exam - Female: deferred General: Yes bladder normal to palpation External Female Exam: normal external appearance and normal appearance of the urethra Speculum Exam - Vagina: normal appearance of the vagina, normal palpation and normal vaginal discharge Speculum Exam - Cervix: normal appearance of the cervix and normal palpation Bimanual exam- vagina & uterus: normal bimanual exam, normal palpation, uterine size normal, bladder normal to palpation, normal palpation and non-tender Bimanual Exam- Adnexa, other: no masses Skin General skin exam: no rashes or lesions noted Rashes: no rashes Neuro General: patient oriented x3 Cognition (Neuro): normal cognition Extrem General: Yes normal to inspection Psych Attitude: cooperative Thought process: Normal thought process present Assessment & Plan Assessment & Plan (1) Well woman exam with routine gynecological exam: Code(s): Z01.419 - Encounter for gynecological examination (general) (routine) without abnormal findings Category: Medical (2) Contraceptive surveillance: Code(s): Z30.40 - Encounter for surveillance of contraceptives, unspecified Qualifiers: Contraceptive type: pill Qualified Code(s): Z30.41 - Encounter for surveillance of contraceptive pills Plan Discussed: Current recommendations for pap smears per ASCCP guidelines. Breast awareness and periodic breast exams. Maintain a healthy lifestyle including a well balanced diet and routine exercise. Strongly encouraged discontinuing vaping. Use condoms for STI prevention. Patient verbalizes understanding and agrees to the plan of care. She was given opportunity to ask questions and all questions were answered to the best of my ability. control hormone use warnings: go to ER if and loss of vision, blindness, severe headache, chest pain or difficulty breathing, severe abdominal pain, or any pain or swelling in an extremity. RTO in one year for annual individual small group instructor examination. This note is constructed using voice recognition software. While every effort has been made to ensure accuracy, starting gate driver errors may have been included. Orders: Orders Bacterial Vaginosis Panel Today Z20.2 - Contact with and (suspected) exposure to infections with a predominantly sexual mode of transmission CT NG by PCR Today Z20.2 - Contact with and (suspected) exposure to infections with a predominantly sexual mode of transmission Medications: Refilled levonorgestrel-ethinyl estrad 0.15 mg-30 mcg (91) (Jolessa) 1 tab PO DAILY 91 ea 4RF Coding Level of Care Code Est Pt Prev Care 18-39y(90774) Diagnoses Well woman exam with routine gynecological exam Z01.419 Encounter for surveillance of contraceptive pills Z30.41 Contraceptive type: pill
[2024-10-10 14:27] VITALS: BP 100/60; BMI 26.6
== END 2024-10-10 15:26 | disposition home or self-care (01) ==
PROVIDERS: Visit Provider Advanced Practice Midwife
DX: Z01.419 Encounter for gynecological examination (general) (routine) without abnormal findings (principal); Z30.41 Encounter for surveillance of contraceptive pills
CPT/HCPCS: 99395; 99459

== ENCOUNTER 2024-10-10 14:25 | Outpatient (REF) | payer OTHER, SELFPAY ==
[2024-10-10 18:00] LABS: Bacterial Vaginosis PCR NEGATIVE (Negative); Candida Group PCR DETECTED (Not Detect); Candida glab krusei PCR NOT DETECTED (Not Detect); Trichomonas vaginalis PCR NOT DETECTED (Not Detect)
[2024-10-11 06:54] LABS: CT PCR NOT DETECTED (Not Detect.); NG PCR NOT DETECTED (Not Detect.)
== END 2024-10-10 14:26 | disposition home or self-care (01) ==
LOC: HO.LAB 14:25
PROVIDERS: Visit Provider Advanced Practice Midwife
DX: Z01.419 Encounter for gynecological examination (general) (routine) without abnormal findings (principal); Z20.2 Contact with and (suspected) exposure to infections with a predominantly sexual mode of transmission
CPT/HCPCS: 81515; 87491; 87591; 99395; 99459

== ENCOUNTER 2024-10-10 14:53 | Outpatient (REF) | payer OTHER, SELFPAY | END 2024-10-10 14:54 | disposition home or self-care (01) | LOC: HO.LNP 14:53 | PROVIDERS: Visit Provider Advanced Practice Midwife | DX: Z13.89 Encounter for screening for other disorder (principal) ==

== ENCOUNTER 2024-10-25 14:30 | Outpatient (AMB) | payer OTHER, SELFPAY ==
[2024-10-25 14:49] VITALS: BP 110/70; PULSE 89; TEMP 36.6; O2SAT 100; BMI 27.2
--- NOTE | 2024-10-25 14:49 | A.OFFPC_ITS ---
Vital Signs 10/25/24 14:49 Height 5 ft 7 in Weight 174 lb BMI 27.2 BP 110/70 Blood Pressure Location Lt brachial Position Sitting Pulse 89 Pulse Source Pulse Oximeter Temp 97.9 F Temp Source Oral Pulse Oximetry (%) 100 Oxygen Delivery Method Room Air Intake Visit Reasons: 2 mon f/up Intake Note: pt is here for 2 mon f.up Allergies No Known Allergies [No Known Allergies*] Allergy (Verified 10/10/24 14:27) Tobacco use date assessed: 10/25/24 Dental Screening Dental Screen Date: 10/25/24 Did you have a dental visit in the last 12 months?: Yes Did you have a dental problem in the last 6 months where you did not have access to dental care?: No Was dental information given to patient?: Patient has dentist HPI 2 mon f/up HPI Details Chief Complaint Significant weight gain during the past six months. History of Present Illness The patient is a 29-year-old female presenting with weight gain. Over the last six months, the patient reports gaining a significant amount of weight. 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 Her eating habits have declined in quality during this period. The patient denies chest pain or shortness of breath but reports lower back pain (XR was neg), which she believes will improve with weight loss. 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 - Stress: Reports significant stress ass ociated with job loss and student responsibilities. - Eating Habits: Describes current eatin g habits as poor. Health Maintenance - Encouraged to obtain laboratory tests prior to physical examination in the near future. Review of Systems - Cardiovascular: Denies chest pain. - Respiratory: Denies shortness of breat h. - Musculoskeletal: Reports some lower ba ck pain, denies any s/s of cauda equina Physical Exam General: Cooperative, healthy appearing, comfortable, no acute distress and well developed Orientation: Patient oriented x3 Limitations: No limitations Head: Normal to inspection Ears: Hearing grossly normal bilaterally Nose: Normal external nose present Face and sinus: Normal facial exam Eyes: Appearance normal, both eyes and all related structures Neck: Normal visual inspection and Yes full ROM Respiratory: Normal respiratory effort and able to speak in complete sentences. Clear to auscultation bilaterally Cardiovascular: Regular rate and rhythm. Normal S1 and S2 GI: Normal to inspection. Soft to palpation and nontender Skin: No rashes or lesions noted Neuro: Patient oriented x3 Extremities: Normal to inspection Results Plan I have advised the patient to engage in our medical weight management program for a comprehensive evaluation and management strategy. I discussed the suitability of GLP-1 agonists as a treatment option. The patient is encouraged to have laboratory tests conducted before her physical examination to facilitate a thorough assessment. Discussion Notes I discussed with the patient the advisability of participating in a medical weight management program. We reviewed potential pharmacological options, including GLP-1 agonists, and I explained the potential benefits of these medications. I advised her to complete laboratory tests prior to her physical examination to ensure an accurate evaluation. Follow-up will be contingent on the outcomes of these evaluations. Patient Instructions - Attend follow-up evaluation in the [facility] weight management program. - Obtain laboratory tests prior to the n ext physical exam. - Maintain awareness of dietary habits a nd stress levels. [facility] Medical History Hepatitis C Syphilis Vitamin D deficiency GERD (gastroesophageal reflux disease) Chronic constipation Anxiety and depression Drug abuse Opioid use disorder Scoliosis Sleep disturbance Surgical History Hx of endoscopy Hx of colonoscopy No pertinent past surgical history Family History Father Alcoholism Mother No problems noted. Maternal Grandfather Aneurysm Sister No problems noted. Social History Household Members: None Housing: Apartment Are you a primary skin care specialist to a significant other at home: No Do you presently have visiting nurse or other home services: No Alcohol intake: current Alcohol intake frequency: holidays/special occasions only Alcohol type: beer and wine Patient Tobacco Use Status: Former Tobacco user Tobacco use type: Smokeless Tobacco Cigarettes Per Day: 2 Years Smoked: 2 years e-Cigarette/Vaping Use: Currently Using service: No Current occupational status: employed Current occupation: N Current occupational exposures/hazards: No Cognitive needs: No Hearing needs: No Vision needs: No Female Reproductive History Menstrual Age of Menarche: 13 Questionnaire PHQ-9 Over the last 2 weeks, how often have you been bothered by any of the following problems? 1. Little interest or pleasure in doing things: not at all 2. Feeling down, depressed, or hopeless: several days 3. Trouble falling or staying asleep, or sleeping too much: more than half the days 4. Feeling tired or having little energy: more than half the days 5. Poor appetite or overeating: several days 6. Feeling bad about yourself - or that you are a failure or have let yourself or your family down: not at all 7. Trouble concentrating on things, such as reading the newspaper or watching television: more than half the days 8. Moving or speaking so slowly that other people could have noticed. Or the opposite - being so fidgety or restless that you have been moving around a lot more than usual: more than half the days 9. Thoughts that you would be better off or of hurting yourself in some way: not at all Total score: 10 Depression Screening Interpretation: Positive (denies any si or hi) Depression Screening Follow-up: Existing condition and In treatment Depression Screening Done: Yes 73585 - PHQ-9 Billing: Yes Source: Developed by Drs. Rogerio Nguyễn, Anuradha Haddad, Srini Bonilla and colleagues, with an educational romie from [employer]. Thrive Questionnaire Date Thrive assessed: 10/18/24 I am a: Patient What is your living situation today?: I have a steady place to live Within the past 12 months, did the food you bought not last and you didn't have the money to get more?: Sometimes True Within the past 12 months, did you worry whether your food would run out before you got money to buy more?: Sometimes True Do you have trouble paying for medicines?: No Do you have trouble getting transportation to medical appointments?: No Do you have trouble paying your heating and electricity bill?: No Do you have trouble taking care of your child, family member or friend?: No Do you have trouble with day-to-day activities such as bathing, preparing meals, shopping, managing finances, etc.?: No Are you currently unemployed and looking for a job?: No Are you interested in more education?: No Please select the resources that you would like help with: None Currently or been in a relationship where the following occur: No concerns reported THRIVE Score: 2 AUDIT C Alcohol Use Questionnaire (AUDIT-C) 1. How often do you have a drink containing alcohol?: 2-3 times a week 2. How many drinks containing alcohol do you have on a typical day when you are drinking?: 1 or 2 3. How often do you have six or more drinks on one occasion?: Less than monthly Total Score: 4 Score Reviewed/Action Taken: Yes ZAINAB-7 AMB Questionnaire ZAINAB-7 Date ZAINAB - 7 assessed: 10/25/24 Feeling nervous, anxious, or on edge: 2 = More than half the days Not being able to stop or control worryin = Several days Worrying too much about different things: 2 = More than half the days Trouble relaxin = Nearly every day Being so restless that it is hard to sit still: 2 = More than half the days Becoming easily annoyed or irritable: 2 = More than half the days Feeling afraid as if something awful might happen: 1 = Several days Total ZAINAB-7 score (0-4 normal; 5-9 mild; 10-14 moderate; 15-21 severe): 13 Source: Developed by Drs. Rogerio Nguyễn, Anuradha Haddad, Srini Bonilla and colleagues, with an educational romie from [employer]. ZAINAB-7 Assessment Billing ZAINAB-7 Assessment Tool: ZAINAB-7 Assessment 23006 (denies any si or hi) Physical exam (Primary Care) Vital Signs: Last Vital Signs Temp 97.9 F 10/25/24 14:49 Pulse 89 10/25/24 14:49 BP 110/70 10/25/24 14:49 Pulse Ox 100 10/25/24 14:49 Oxygen Delivery Method Room Air 10/25/24 14:49 BMI result Body Mass Index 27.2 Tobacco/Smoking Status: Tobacco use Status Tobacco use date assessed 10/25/24 10/25/24 15:01 Patient Tobacco Use Status Former Tobacco user 10/25/24 14:52 Tobacco use type Smokeless Tobacco 10/25/24 14:52 e-Cigarette/Vaping Use Currently Using 10/25/24 14:52 PHQ-9: PHQ-9 Score PHQ-9: Total score 10 10/25/24 15:01 Depression Screening Interpretation: Positive (denies any si or hi) Depression Screening Follow-up: Existing condition and In treatment Thrive Assessment: Date of Thrive Assessment Date Thrive assessed 10/18/24 10/25/24 14:52 Currently or been in a relationship where the following occur: No concerns reported Coding Level of Care Code Est Pt Level 3 (35385) Diagnoses Morbid obesity E66.01 Lower back pain M54.50 Additional Codes PHQ-9 - 25795 - PHQ-9 Billing: Yes ([id number]) ZAINAB-7 Assessment Billing - ZAINAB-7 Assessment Tool: ZAINAB-7 Assessment 56638 ([id number]) Assessment & Plan Assessment & Plan (1) Morbid obesity: Code(s): E66.01 - Morbid (severe) obesity due to excess calories Category: Medical (2) Lower back pain: Code(s): M54.50 - Low back pain, unspecified Category: Medical Plan . Orders: Referrals Medical Weight Management Referral E66.01 - Morbid (severe) obesity due to excess calories
== END 2024-10-25 15:34 | disposition home or self-care (01) ==
PROVIDERS: PCP Nurse Practitioner Family; Visit Provider Nurse Practitioner Family
DX: M54.50 Low back pain, unspecified (principal); E66.01 Morbid (severe) obesity due to excess calories; Z68.27 Body mass index [BMI] 27.0-27.9, adult

== ENCOUNTER → 2024-10-25 14:30 | Outpatient (BNVA) | payer OTHER, SELFPAY | PROVIDERS: PCP Nurse Practitioner Family; Visit Provider Nurse Practitioner Family | DX: M54.50 Low back pain, unspecified (principal); E66.01 Morbid (severe) obesity due to excess calories; Z68.27 Body mass index [BMI] 27.0-27.9, adult; Z71.3 Dietary counseling and surveillance | CPT/HCPCS: 96127; 99212 ==

== ENCOUNTER 2024-11-27 09:15 | Outpatient (AMB) | payer OTHER, SELFPAY ==
--- NOTE | 2024-11-27 09:17 | MHC.OFFVIS ---
Intake Visit Reasons: GERD angd constipation Intake Note: Patient 4 month follow up for GERD, constipation and lab result. Patient cc: still having with painful BM but the new medication is helping her with her constipation. 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 Accompanied by: Self / Same As Patient Allergies No Known Allergies [No Known Allergies*] Allergy (Verified 10/10/24 14:27) Medication List - Last Reconciled 11/27/24 by Roge Arthur MD betamethasone valerate 0.1% 1 appl topical DAILY cholecalciferol (vitamin D3) 250 mcg PO 2XW 90 days clonidine HCl 0.1 mg PO TID PRN ibuprofen 800 mg PO Q8H PRN 30 days levonorgestrel-ethinyl estrad 0.15 mg-30 mcg (91) (Jolessa) 1 tab PO DAILY linaclotide (Linzess) 290 mcg PO QAM 30 days lorazepam 0.5 mg PO DAILY PRN 20 days methadone (Methadone Intensol) 32 mg PO DAILY mirtazapine 15 mg PO BEDTIME HPI HPI GERD angd constipation: Details: Telemedicine visit for this 29-year-old female for follow-up hep C genotype 1a - treated in the past with Mavyret x 8 weeks. (She missed 2-3 weeks of treatment and hepatitis C viral load was negative at the end of treatment and at 1 year FU testing). Pt has been followed by Dr Grissom since 04/2018. TODAY'S VISIT: Patient cc: still having with painful BM but the new medication is helping her with her constipation. Taking Linzess daily and has been working. Has a BM daily to every other day. Can have rectal/anal pain after a BM with blood (light red) over the stool intermittently - at least once a week and in the stool There can be blood on wiping Can have intermittent hard stool and hurts when she tried to push it out PAST VISIT: Patient is asking for Linzess refill to be send to pharmacy - refill sent EGD and colon results were reviewed with the patient Patient denies major cardiac or pulmonary problems, loud snoring or sleep apnea Has trouble sleeping and only able to sleep 2 hrs at a time. Denies having any surgeries in the past. Takes Ibuprofen 4-5 times a week for migraine JAMES and joint pains. Denies being on chronic anticoagulation. Patient denies known family history of colon polyps, colon cancer or other GI malignancies. Lives by herself and has no children. 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 Unable to have EGD and Colon due to inability to start an IV line (tried 8 times and arms were bruised) Denies using IV drugs in 2 years. Working at [employer] (in patient Rehab) in [place]. Continues to have constipation Taking greens and reds and is able to have a BM when she takes them Abdominal pains and intermittent rectal bleeding Took Linzess for 4 days and had abdominal cramps. 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 Has a BM 1-2 times a week - hard stools associated with straining. Notes rectal bleeding with passage of large BM. Notes BRB on the surface of the stool - unable to tell if there is blood mixed with the stool. Wakes up with stabbing lower abdominal pain - improves after she has a BM. Not taking the supplements since April last year and stopped the workout program she had enrolled in. Tapering Methadone - tapering by 5 mg every 3 days Taking Prevacid with adequate control of heartburn. Takes Gabapentin 1-2 times a month for anxiety. Patient cc: chronic morning abdominal pain and bloating, constipation with some blood spot. Denies any other GI issues. Started taking a supplement - OPTI greens and OPTI reds for bloating (supports immune system, contains digestive enzymes and probiotics) - helps with bloating. Symptoms improved and stopped taking Famotidine and Linzess She was getting acid reflux at night since she was eating ice-cream and candy at bedtime Takes TUMS once a week for acid reflux - upto 10 tablets Has a BM once a day Denies rectal bleeding. 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 She was seen at [facility] on 11/06/21 with above symptoms Unable to keep anything down. Has been feeling better and back to normal for the past week. Has been drinking 3-4 cups of hot water with lemon, apple cider vinegar, honey and cinnamon Above symptoms have resolved since she started drinking hot water with apple cider vinegar Constipation is better and denies any blood in the stool. On a micro dose of suboxone and trying to taper. Not taking Amitiza since it was causing diarrhea. Pt is accompanied by her GM. Worsening constipation for the past 3 months. Has a BM once a week and takes MOM when she starts getting bad stomach pains and unable to poop. Notes rectal bleeding every time she has a BM. Blood was bright red and mixed with the stool. after taking several doses of MOM, she gets diarrhea and does not see any blood. Has hard stools and has to disimpact by digital manipulation. Has tried stool softeners and Miralax which did not work. Has noted bad acid reflux for the past 2-3 weeks - can start in the middle of the night. Has nausea, regurgitation and burning in her throat. Has to cut food in smaller pieces due to swallowing difficulty. Complains of abdominal pain and is very constipated. Has a sharp stabbing pain when she tries to have a BM. Has a BM once a week and it hurts to have a BM. Stool are hards and notes some dark blood on wiping. Has issues going to the bathroom since childhood. Also has heartburn.? Stomach hurts every time she tries to eat. Has gained 40 lbs in the last 6 months. IMAGING STUDIES:? 11/06/21 abdominal ultrasound showed: Normal-appearing gallbladder. Echogenic liver. PAST EGD/COLONOSCOPY:? 06/26/24 EGD AND FLEXIBLE SIGMOIDOSCOPY SHOWED: Endoscopy Findings: ESOPHAGUS: Focal esophagitis STOMACH: Gastritis DUODENUM: Duodenitis in the bulb Colonoscopy Findings: No polyps were detected Random biopsies were obtained from right and left colon to check for microscopic colitis Small non-bleeding internal hemorrhoids on antegrade exam. Plan: Repeat Colonoscopy in 17 years if colon biopsies are normal. Above findings were reviewed with the patient and relevant handouts were given and the discharge area. BIOPSIES SHOWED: A. Small bowel, biopsy: Small intestinal mucosa within normal limits. B. Stomach, antrum, biopsy: Antral-type mucosa with mild chronic inactive inflammation; no Helicobacter organisms seen. C. Stomach, body, biopsy: Oxyntic mucosa with mild chronic inactive inflammation; no Helicobacter organisms seen. D. Colon, right, biopsy: Colonic mucosa within normal limits. E. Colon, left, biopsy: Hyperplastic mucosal polyp. Patient placed on colonoscopy recall list for repeat colonoscopy in 17 years [facility] Medical History Hepatitis C Syphilis Vitamin D deficiency GERD (gastroesophageal reflux disease) Chronic constipation Anxiety and depression Drug abuse Opioid use disorder Scoliosis Sleep disturbance Surgical History Hx of endoscopy Hx of colonoscopy No pertinent past surgical history Family History Father Alcoholism Mother No problems noted. Maternal Grandfather Aneurysm Sister No problems noted. Social History Household Members: None Housing: Apartment Are you a primary transitions rn care coordinator to a significant other at home: No Do you presently have visiting nurse or other home services: No Alcohol intake: current Alcohol intake frequency: holidays/special occasions only Alcohol type: beer and wine Patient Tobacco Use Status: Former Tobacco user Tobacco use type: Smokeless Tobacco Cigarettes Per Day: 2 Years Smoked: 2 years e-Cigarette/Vaping Use: Currently Using service: No Current occupational status: employed Current occupation: N Current occupational exposures/hazards: No Cognitive needs: No Hearing needs: No Vision needs: No Female Reproductive History Menstrual Age of Menarche: 13 Review of Systems Const All systems reviewed & are unremarkable except as noted in HPI and below Telehealth Telehealth Telehealth Platform: Telephone Location of provider rendering services: practice address Location of patient: address on file Patient Identification confirmed using: Name, : Yes Telehealth method: voice only Patient verbally consented to treatment: Yes Patient verbally consented to billing insurance company: Yes Patient informed of any privacy concerns related to visit: Yes Minutes spent on Phone/Video with Pt.: 15 Assessment & Plan Assessment & Plan (1) Constipation: Code(s): K59.00 - Constipation, unspecified Category: Medical (2) GERD (gastroesophageal reflux disease): Code(s): K21.9 - Gastro-esophageal reflux disease without esophagitis Category: Medical (3) Hemorrhoids, internal, with bleeding: Code(s): K64.8 - Other hemorrhoids Category: Medical Plan 29 YF with hx of drug abuse, hepatitis C (treated successfully with Mavyret in 2019) and chronic constipation. Pt complains of abdominal pain associated with worsening constipation, wt gain and rectal bleeding associated with straining during a?BM. Pt was advised to take MOM followed by Shena every day for constipation. ADDENDUM: KUB results were reviewed with the patient. Linaclotide has been working well - having a BM daily to every other day. Notes decrease in rectal bleeding Patient was advised to continue above medications and keep follow-up appointment in October 2019. She was seen at [facility] on 11/06/21 with abdominal pain, nausea and vomiting which lasted over a month. Unable to keep anything down. She started drinking 3-4 cups of hot water with lemon, apple cider vinegar, honey and cinnamon and she has been feeling better since and back to normal. Constipation is better and denies any blood in the stool. On a micro dose of suboxone and trying to taper. Not taking Amitiza since it was causing diarrhea. 03/03/23 Start Famotidine at bedtime for GERD symptoms Resume Linzess 72 mcg daily for constipation 07/14/23 OPTI greens and OPTI reds for bloating (supports immune system, contains digestive enzymes and probiotics) - helps with bloating. Symptoms improved and stopped taking Famotidine and Linzess Option for further evaluation with an EGD or barium swallow were reviewed with the pt. She will monitor her symptoms for now and may schedule after her next FU visit 01/12/24 Pt advised to continue Prevacid 15 mg daily for GERD and resume taking Linzess 72 mcg daily Pt is scheduled for an EGD on 04/20/24 (advised to add same day flexible sigmoidoscopy for evaluation of rectal bleeding) 05/18/24 Pt scheduled for EGD and Flex Sig on 04/20/24 and unable to have the procedures due to inability to start an IV line (tried 8 times and arms were bruised) She will be rescheduled for EGD and colonoscopy (She will have a midline placed by IR morning of the procedure) 06/26/24 EGD and colon were performed and findings as noted 11/27/24 Pt advised to take Miralax 1-2 times daily in addition to Linzess Use hydrocortisone cream for rectal pain and bleeding Advised to send me an email update in 2-3 weeks via pt portal FU in 4 months Medications: New polyethylene glycol 3350 (Miralax) 17 grams PO DAILY 30 days 510 grams 3RF K59.09 - Other constipation hydrocortisone 2.5% 1 appl [place] BID-QID 20 days PRN 135.0 grams 0RF hemorrhoids K64.8 - Other hemorrhoids Coding Level of Care Code Tele Est Pt Level 2 (03526) Diagnoses Constipation K59.00 GERD (gastroesophageal reflux disease) K21.9 Hemorrhoids, internal, with bleeding K64.8 Time Spent (min) 15
--- OUTSIDE RECORDS SUMMARY | 2024-11-27 10:15 | XMS_ITS | Clinical Summary ---
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 Name Role Phone Unavailable Primary Care Provider Unavailabl e Social History Tobacco Use Types Packs/Day Years Used Date Smoking Tobacco: Never Assessed Comments Unknown Sex and Gender Information Value Date Recorded Sex Assigned at Not on file Legal Sex Female 11:42 AM EST Gender Identity Not on file Sexual Orientation Not on file Plan of Treatment Health Maintenance Due Date Last Done Comments DTaP,Tdap,and Td Vaccines (1 - Tdap) 2015 Hepatitis B Vaccines (1 of 3 - 19+ 3-dose series) 2015 Cervical Cancer Screening: P ap Smear 2017 COVID-19 Vaccine ( - 2023-2 5 season) 2024 Influenza Vaccine (#1) 2024 HIB Vaccines Aged Out No longer eligi ble based on patient's age to complete this topic HPV Vaccines Aged Out No longer eligi ble based on patient's age to complete this topic Hepatitis A Vaccines Aged Out No long er eligible based on patient's age to complete this topic IPV Vaccines Aged Out No longer eligi ble based on patient's age to complete this topic MMR Vaccines Aged Out No longer eligi ble based on patient's age to complete this topic Meningococcal ACWY Vaccine Aged Out N o longer eligible based on patient's age to complete this topic Meningococcal B Vacine Aged Out No lo nger eligible based on patient's age to complete this topic Pneumococcal Vaccine: Pediat rics (0 to 5 Years) and At-Risk Patients (6 to 64 Years) Aged Out No longer eligible b ased on patient's age to complete this topic RSV Immunization Patients Un nathan 20 months Aged Out No longer eligible b ased on patient's age to complete this topic Varicella Vaccines Aged Out No longer eligible based on patient's age to complete this topic
== END 2024-11-27 15:47 | disposition home or self-care (01) ==
LOC: HO.HGI 09:15
PROVIDERS: PCP Nurse Practitioner Family; Visit Provider Internal Medicine Gastroenterology
DX: K59.00 Constipation, unspecified (principal); K21.9 Gastro-esophageal reflux disease without esophagitis; K64.8 Other hemorrhoids
CPT/HCPCS: 99212

== ENCOUNTER → 2024-11-27 09:15 | Outpatient (BNVA) | payer OTHER, SELFPAY | PROVIDERS: PCP Nurse Practitioner Family; Visit Provider Internal Medicine Gastroenterology ==

== ENCOUNTER 2024-12-07 13:03 | Outpatient (REF) | payer OTHER, SELFPAY ==
--- OUTSIDE RECORDS SUMMARY | 2024-12-07 13:32 | XMS_ITS | Clinical Summary ---
Author Organization 175 [facility] Address [address] [place] [address] Phone Care Team Providers Care Residential Sales Name Role Phone Unavailable Primary Care Provider Unavailabl e Social History Tobacco Use Types Packs/Day Years Used Date Smoking Tobacco: Never Assessed Comments Unknown Sex and Gender Information Value Date Recorded Sex Assigned at Not on file Legal Sex Female 11:42 AM EST Gender Identity Not on file Sexual Orientation Not on file Plan of Treatment Upcoming Encounters Date Type Department Care Team ([facility] Contact Info) Description 12/20/2024 11:00 AM EDT Evaluation [facility] [address] [address] Leodan Caceres, PT 175 [place], [place] [phone] Health Maintenance Due Date Last Done Comments DTaP,Tdap,and Td Vaccines (1 - Tdap) 2015 Hepatitis B Vaccines (1 of 3 - 19+ 3-dose series) 2015 Cervical Cancer Screening: P ap Smear 2017 COVID-19 Vaccine ( - 2023-2 5 season) 2024 Depression Screening 11/29/2024 HIV Screening 11/29/2024 Hepatitis C Screening 11/29/2024 Social Influencers of Health Screening 11/29/2024 Influenza Vaccine (Season Ended) 2025 HIB Vaccines Aged Out No longer eligi [...] age to complete this topic Meningococcal B Vaccine Aged Out No l onger eligible based on patient's age to complete [...] on patient's age to complete this topic Insurance [facility]
[2024-12-10 08:33] LABS: HBS Num1 10.02 mIU/mL (0-7.99)
[2024-12-10 09:23] LABS: HBS Num2 9.97 mIU/mL (0-7.99); HBS Num3 10.26 mIU/mL (0-7.99); ~Hepatitis B Surface Antibody GRAYZONE (Nonreactive)
== END 2024-12-07 13:04 | disposition home or self-care (01) ==
LOC: HO.HMGCLDS 13:03
PROVIDERS: PCP Nurse Practitioner Family; Visit Provider Nurse Practitioner Family
DX: Z78.9 Other specified health status (principal)
CPT/HCPCS: 36415; 86706; 86735; 86762; 86765; 86787

== ENCOUNTER 2024-12-13 10:30 | Outpatient (AMB) | payer OTHER, SELFPAY ==
--- NOTE | 2024-12-13 10:51 | A.OFFVIS_ITS ---
VS Expanded 12/13/24 11:00 12/31/24 22:03 Height 5 ft 7 in 5 ft 7 in Weight 175 lb 0.752 oz 175 lb BMI 27.4 27.4 Intake Visit Reasons: Obesity Allergies No Known Allergies [No Known Allergies*] Allergy (Verified 12/14/24 12:13) Nutrition Presentation Details: Pt presents for MNT for obesity Pt reports no food allergies food frequency fruits: 0-1/d veg;4x/wk dairy: 3+ starches >18 /d fish 0-1/wk physical activity:aDL etoh/smoking-- beverages water, milk, juice, BS Monitoring Most Recent Diabetes Results: Cholesterol 226 mg/dL (<200) H 12/14/24 HDL Cholesterol 47 mg/dL (>40) 12/14/24 Triglycerides 152 mg/dL (<150) H 12/14/24 Creatinine 0.68 mg/dL (0.5-1.4) 12/14/24 Blood Urea Nitrogen 11 mg/dL (9-16) 12/14/24 Sodium 137 mmol/L (135-145) 12/14/24 Potassium 3.9 mmol/L (3.3-5.1) 12/14/24 Chloride 107 mmol/L (96-108) 12/14/24 Carbon Dioxide 21 mmol/L (22-29) L 12/14/24 Calcium 9.5 mg/dL (8.4-10.2) 12/14/24 AST 30 U/L (5-31) 12/14/24 ALT 44 U/L (0-31) H 12/14/24 Total Protein 7.7 g/dL (6.5-8.0) 12/14/24 Albumin 4.3 g/dL (3.5-5.0) 12/14/24 BNE-Eybzwtl-Wl.Jeor Equation Height: 5 ft 7 in Weight: 175 lb Resting Metabolic Rate: 1557.86 Calculated Activity Level: Sedentary Calories Needed to Maintain Weight: 1869.43 Diagnosis Nutrition problem #1: food nutri know defi As related to (etiology) #1: lack of nutrit education As evidenced by (sign/symptom) #1: knowledge deficit of diet [facility] Medical History Hepatitis C Syphilis Vitamin D deficiency GERD (gastroesophageal reflux disease) Chronic constipation Anxiety and depression Drug abuse Opioid use disorder Scoliosis Sleep disturbance Surgical History Hx of endoscopy Hx of colonoscopy No pertinent past surgical history Family History Father Alcoholism Mother No problems noted. Maternal Grandfather Aneurysm Sister No problems noted. Social History Household Members: None Housing: Apartment Are you a primary healthcare receptionist to a significant other at home: No Do you presently have visiting nurse or other home services: No Alcohol intake: current Alcohol intake frequency: holidays/special occasions only Alcohol type: beer and wine Patient Tobacco Use Status: Former Tobacco user Tobacco use type: Smokeless Tobacco Cigarettes Per Day: 2 Years Smoked: 2 years e-Cigarette/Vaping Use: Currently Using service: No Current occupational status: employed Current occupation: N Current occupational exposures/hazards: No Cognitive needs: No Hearing needs: No Vision needs: No Female Reproductive History Menstrual Age of Menarche: 13 Assessment & Plan Assessment & Plan (1) Obesity: Code(s): E66.9 - Obesity, unspecified Category: Medical Plan: Wt: 80 Kg ( 01/20 ) Est kcal needs as per MSJ: 2307-7997 (40% carb, 30% protein/fat) Est fluid needs as per 25-30 ml/d: 2400 Est prot per day as per 1 g/kg bw: 80 Recommend fiber intake : 8-10 g per day and gradually increase to 25-28 g per day for women and 35-38 g for men or as tolerated Recommend sodium intake per day : less than 2000 mg Educated patient on: ( R = reviewed V = verbalizes understanding N/R = needs review N/A = not applicable * Food sources of carbohydrate, adequate serving sizes and its role in various health conditions: R V N/R * Differences between complex carbohydrates a simple carbohydrates, role of fiber in diet: R * Lean protein sources of foods: R V NR * Differences between types of fats and role in diet (mono on saturated fat fatty acids, saturated fatty acids, trans fats): R V N/R * Food sources of sodium in salt and healthy modifications for heart health in kidney health: R V R/V * Vitamins and minerals: R V N/R * Healthy plate method concept: R * Physical activity: Benefits a precaution: R V N/R Patient Instructions: Practice mindful eating Follow healthy plate method at dinner Choose low sugar beverages (dilute juices with water, choose herb/fruit flavor beverages) Coding Level of Care Code Nutr Indiv Intake (39591) Diagnoses Obesity E66.9 Time Spent (min) 30
[2024-12-13 11:00] VITALS: BMI 27.4
--- OUTSIDE RECORDS SUMMARY | 2024-12-13 12:39 | XMS_ITS | Clinical Summary ---
Author Organization 175 [facility] Address 175 [place] [address] Phone Care Team Providers Care Job Tracer Name Role Phone Unavailable Primary Care Provider Unavailabl e Social History Tobacco Use Types Packs/Day Years Used Date Smoking Tobacco: Never Assessed Comments Unknown Sex and Gender Information Value Date Recorded Sex Assigned at Not on file Legal Sex Female 11:42 AM EST Gender Identity Not on file Sexual Orientation Not on file Plan of Treatment Upcoming Encounters Date Type Department Care Team ([facility] Contact Info) Description 12/20/2024 11:00 AM EDT Evaluation [facility] [address] [address] Leodan Caceres, PT 175 [place], [place] [phone] Health Maintenance Due Date Last Done Comments [...] patient's age to complete this topic Insurance [facility]
[2024-12-31 22:03] VITALS: BMI 27.4
== END 2024-12-13 11:17 | disposition home or self-care (01) ==
LOC: HO.ENCR 10:31
PROVIDERS: PCP Nurse Practitioner Family; Visit Provider Dietitian, Registered
DX: E66.9 Obesity, unspecified (principal)

== ENCOUNTER → 2024-12-13 10:30 | Outpatient (BNVA) | payer OTHER, SELFPAY | PROVIDERS: PCP Nurse Practitioner Family; Visit Provider Dietitian, Registered | DX: E66.9 Obesity, unspecified (principal); Z68.27 Body mass index [BMI] 27.0-27.9, adult | CPT/HCPCS: 97802 ==

== ENCOUNTER 2024-12-14 12:07 | Outpatient (REF) | payer OTHER, SELFPAY ==
[2024-12-14 16:18] LABS: MANUAL DIFF FLAG NO
[2024-12-14 16:23] LABS: Appearance Urine Turbid; Color Urine Dark Yellow; Glucose Urine UA Negative (Negative); Leukocyte Esterase Urine Negative (Negative); Nitrite Urine Negative (Negative); Specific Gravity - Urine 1.025 (1.005-1.025); Urine Blood Negative (Negative); Urine Ketones Negative (Negative); Urine Protein Negative (Neg-Trace)
[2024-12-14 16:25] LABS: Basophils Absolute Auto 0.1 X10*3/uL (0.0-0.2); Basophils Percent Auto 0.7 % (0-2); Eosinophils Absolute Auto 0.4 X10*3/uL (0.0-0.4); Eosinophils Percent Auto 4.4 % (0-4); Hematocrit 38.3 % (37.0-47.0); Hemoglobin 13.1 g/dl (12.0-16.0); Imm Gran Abs Auto 0.03 X10*3/uL (0.00-0.03); Imm Gran Pct Auto 0.3 % (0.0-0.4); Lymphocytes Absolute Auto 3.3 X10*3/uL (1.2-4.9); Lymphocytes Percent Auto 33.3 % (20-40); Mean Corpuscular HGB Conc 34.2 g/dl (31.0-35.0); Mean Corpuscular Volume 87.6 fL (80.0-98.0); Mean Platelet Volume 10.3 fL (9.4-12.3); Monocytes Absolute Auto 0.4 X10*3/uL (0.1-1.2); Monocytes Percent Auto 4.3 % (2-11); Neutrophils Absolute Auto 5.6 x10*3/uL (2.0-8.3); Platelet Count 307 X10*3/uL (160-400); Red Blood Count 4.37 X10*6/uL (4.20-5.50); Red Cell Distribution Width 12.3 % (11.0-16.0); White Blood Count 9.9 X10*3/uL (4.8-10.8)
[2024-12-14 16:55] LABS: Alanine Aminotransferase 44 U/L (0-31); Albumin Level 4.3 g/dL (3.5-5.0); Anion Gap 13 (12-20); Aspartate Amino Transferase 30 U/L (5-31); Bilirubin Total 0.4 mg/dL (0.0-1.0); Blood Urea Nitrogen 11 mg/dL (9-16); Calcium 9.5 mg/dL (8.4-10.2); Carbon Dioxide 21 mmol/L (22-29); Chloride 107 mmol/L (96-108); Cholesterol 226 mg/dL (<200); Estimated Glomerular Filt Rate > 60; Glucose Fasting 65 mg/dL (60-99); HDL Cholesterol 47 mg/dL (>40); LDL Cholesterol Calculated 149 mg/dL (<100); Potassium 3.9 mmol/L (3.3-5.1); Sodium 137 mmol/L (135-145); Total Protein 7.7 g/dL (6.5-8.0); Triglycerides 152 mg/dL (<150)
[2024-12-14 17:19] LABS: TSH reflex Free T4 1.37 uIU/mL (0.32-4.0); Vitamin D 25-OH Total 53.4 ng/mL (>30)
[2024-12-14 18:55] LABS: Alkaline Phosphatase 72 U/L (39-117)
[2024-12-15 11:35] LABS: Bacterial Vaginosis PCR NEGATIVE (Negative); Candida Group PCR DETECTED (Not Detect); Candida glab krusei PCR NOT DETECTED (Not Detect); Trichomonas vaginalis PCR NOT DETECTED (Not Detect)
[2024-12-17 03:41] LABS: HBS Num1 10.76 mIU/mL (0-7.99); HBsAGNum1 0.42 S/CO (0.00-0.99); Hepatitis B Core Antibody Nonreactive (Nonreactive); Hepatitis B Surface Antigen Negative (Negative); ~HepC Num1 3.07 S/CO (0.00-0.79); ~Hepatitis C Antibody Reactive (Nonreactive)
[2024-12-17 04:26] LABS: HBS Num3 9.87 mIU/mL (0-7.99); ~Hepatitis B Surface Antibody GRAYZONE (Nonreactive)
[2024-12-18 08:40] LABS: Hepatitis A Antibody IgM 0.37 Index (0-0.79); ~Hepatitis A Antibody IgM Nonreactive (Nonreactive)
== END 2024-12-14 12:08 | disposition home or self-care (01) ==
LOC: HO.LAB 12:07
PROVIDERS: Internal Medicine; PCP Nurse Practitioner Family
DX: N76.0 Acute vaginitis (principal); Z11.59 Encounter for screening for other viral diseases; E55.9 Vitamin D deficiency, unspecified; F19.10 Other psychoactive substance abuse, uncomplicated; F32.9 Major depressive disorder, single episode, unspecified; F41.9 Anxiety disorder, unspecified
CPT/HCPCS: 36415; 80053; 80061; 81003; 81515; 82306; 84443; 85025; 86704; 86706; 86709; 86803; 87340; 99212

== ENCOUNTER 2024-12-14 12:07 | Outpatient (AMB) | payer OTHER, SELFPAY ==
[2024-12-14 12:12] VITALS: BP 110/80; PULSE 72; RESP 16; TEMP 36.6; O2SAT 96; BMI 27.7
--- NOTE | 2024-12-14 12:12 | MHC.OFFWIV ---
Intake Vital Signs 12/14/24 12:12 Height 5 ft 7 in Weight 177 lb BMI 27.7 BP 110/80 Blood Pressure Location Rt brachial Position Sitting Respiration 16 Pulse 72 Pulse Source Pulse Oximeter Temp 97.9 F Temp Source Oral Pulse Oximetry (%) 96 Oxygen Delivery Method Room Air Intake Visit Reasons: EP-uti Intake Note: Pt is here today c/o vaginal d/c ? UTI Patient Tobacco Use Status: Former Tobacco user Allergies No Known Allergies [No Known Allergies*] Allergy (Verified 12/14/24 12:13) Medication List - Last Reconciled 12/14/24 by Raz Henderson MD betamethasone valerate 0.1% 1 appl topical DAILY cholecalciferol (vitamin D3) 250 mcg PO 2XW 90 days clonidine HCl 0.1 mg PO TID PRN hydrocortisone 2.5% 1 appl [place] BID-QID PRN 20 days ibuprofen 800 mg PO Q8H PRN 30 days levonorgestrel-ethinyl estrad 0.15 mg-30 mcg (91) (Jolessa) 1 tab PO DAILY linaclotide (Linzess) 290 mcg PO QAM 30 days lorazepam 0.5 mg PO DAILY PRN 20 days methadone (Methadone Intensol) 32 mg PO DAILY mirtazapine 15 mg PO BEDTIME polyethylene glycol 3350 (Miralax) 17 grams PO DAILY 30 days HPI EP-uti HPI Details History - The patient is a 29-year-old female presenting with vaginal discharge with odor. - Previously diagnosed with a urinary tract infection during an annual visit at her OB-METAL FURRER appointment in September. - Current symptoms include vaginal discharge with an odor described as slightly fishy. - No history of similar symptoms before this occurrence. - The patient is not sexually active. - Denies any symptoms involving the bladder, such as changes in urination or fever. - No fever or lower abdominal pain reported. Problem List - Vaginitis Patient Instructions - vaginal sample taken for testing - Await further instructions for treatment after test results are received. Review of Systems - General: Denies fever. - General: No fever no chills - Gastrointestinal: No nausea vomiting or diarrhea Physical Exam - General: No acute distress - HEENT: No acute findings - Neck: Supple - Respiratory system: Able to talk in full sentences, - Gastrointestinal: No pain - Extremities: No new findings - TRANSPORT COORDINATOR: Alert awake oriented x3 - Skin: Normal turgor [facility] Medical History Hepatitis C Syphilis Vitamin D deficiency GERD (gastroesophageal reflux disease) Chronic constipation Anxiety and depression Drug abuse Opioid use disorder Scoliosis Sleep disturbance Surgical History Hx of endoscopy Hx of colonoscopy No pertinent past surgical history Family History Father Alcoholism Mother No problems noted. Maternal Grandfather Aneurysm Sister No problems noted. Social History Household Members: None Housing: Apartment Are you a primary professional healthcare representative to a significant other at home: No Do you presently have visiting nurse or other home services: No Alcohol intake: current Alcohol intake frequency: holidays/special occasions only Alcohol type: beer and wine Patient Tobacco Use Status: Former Tobacco user Tobacco use type: Smokeless Tobacco Cigarettes Per Day: 2 Years Smoked: 2 years e-Cigarette/Vaping Use: Currently Using service: No Current occupational status: employed Current occupation: N Current occupational exposures/hazards: No Cognitive needs: No Hearing needs: No Vision needs: No Female Reproductive History Menstrual Age of Menarche: 13 Physical Exam Vital Signs: Last Vital Signs Temp 97.9 F 12/14/24 12:12 Pulse 72 12/14/24 12:12 Resp 16 12/14/24 12:12 BP 110/80 12/14/24 12:12 Pulse Ox 96 12/14/24 12:12 Oxygen Delivery Method Room Air 12/14/24 12:12 BMI result Body Mass Index 27.7 Results AMB Urinalysis, Automated UA Leukoctes 0 Fletcher/uL Last Edit by Isidra Livingston CMA on 12/14/24 12:19 UA Nitrite Negative Last Edit by Isidra Livingston CMA on 12/14/24 12:19 UA Urobilinogen 0.2 mg/dL Last Edit by Isidra Livingston CMA on 12/14/24 12:19 UA Protein 0 mg/dL Last Edit by Isidra Livingston CMA on 12/14/24 12:19 UA pH 6.0 Last Edit by Isidra Livingston CMA on 12/14/24 12:19 UA Blood 0 Tiburcio/uL Last Edit by Isidra Livingston CMA on 12/14/24 12:19 UA Specific [place] 1.030 Last Edit by Isidra Livingston CMA on 12/14/24 12:19 UA Ketone Negative Last Edit by Isidra Livingston CMA on 12/14/24 12:19 UA Bilirubin 0 mg/dL Last Edit by Isidra Livingston CMA on 12/14/24 12:19 UA Glucose 0 mg/dL Last Edit by Isidra Livingston CMA on 12/14/24 12:19 Results Reviewed Results Reviewed: Laboratory Last Values Urine pH (Auto) 6.0 12/14/24 12:12 Specific [place] (Auto) 1.030 12/14/24 12:12 Urine Protein (Auto) 0 mg/dL 12/14/24 12:12 Glucose (UA)(Auto) 0 mg/dL 12/14/24 12:12 Urine Ketones (Auto) Negative 12/14/24 12:12 Urine Blood (Auto) 0 Tiburcio/uL 12/14/24 12:12 Urine Nitrite (Auto) Negative 12/14/24 12:12 Urine Bilirubin (Auto) 0 mg/dL 12/14/24 12:12 Urine Urobilinogen (Auto) 0.2 mg/dL 12/14/24 12:12 Leukocyte Esterase (Auto) 0 Fletcher/uL 12/14/24 12:12 Assessment & Plan Assessment & Plan (1) Vaginitis: Code(s): N76.0 - Acute vaginitis Qualifiers: Chronicity: acute Qualified Code(s): N76.0 - Acute vaginitis Plan History - The patient is a 29-year-old female presenting with vaginal discharge with odor. - Previously diagnosed with a urinary tract infection during an annual visit at her OB-METAL F[facility] appointment in September. - Current symptoms include vaginal discharge with an odor described as slightly fishy. - No history of similar symptoms before this occurrence. - The patient is not sexually active. - Denies any symptoms involving the bladder, such as changes in urination or fever. - No fever or lower abdominal pain reported. Problem List - Vaginitis Patient Instructions - vaginal sample taken for testing - Await further instructions for treatment after test results are received. Orders: Orders AMB Urinalysis Automated Today Elsy Pradhan PA-C Z13.9 - Encounter for screening, unspecified Bacterial Vaginosis Panel Today Raz Henderson MD N76.0 - Acute vaginitis Coding Level of Care Code Est Pt Level 3 (19978) Diagnoses Acute vaginitis N76.0 Chronicity: acute
--- OUTSIDE RECORDS SUMMARY | 2024-12-14 12:59 | XMS_ITS | Clinical Summary ---
Author Organization 175 [facility] Address [address] [place] [address] Phone Care Team Providers Care Research Nutritionist Name Role Phone Unavailable Primary Care Provider Unavailabl e Social History Tobacco Use Types Packs/Day Years Used Date Smoking Tobacco: Never Assessed Comments Unknown Sex and Gender Information Value Date Recorded Sex Assigned at Not on file Legal Sex Female 11:42 AM EST Gender Identity Not on file Sexual Orientation Not on file Plan of Treatment Upcoming Encounters Date Type Department Care Team ([facility] Contact Info) Description 12/20/2024 11:00 AM EDT Evaluation [facility] [address] [address] Leodan Caceres, PT 175 [place], [place] [phone] Health Maintenance Due Date Last Done Comments [...] patient's age to complete this topic Insurance [facility]
== END 2024-12-14 12:35 | disposition home or self-care (01) ==
PROVIDERS: PCP Nurse Practitioner Family; Visit Provider Internal Medicine
DX: Z13.9 Encounter for screening, unspecified (principal); N76.0 Acute vaginitis

== ENCOUNTER 2025-01-07 14:30 | Outpatient (AMB) | payer OTHER, SELFPAY ==
--- NOTE | 2025-01-07 14:38 | A.OFFPC_ITS ---
Vital Signs 01/07/25 14:39 Height 5 ft 7 in Weight 172 lb BMI 26.9 BP 110/68 Blood Pressure Location Rt brachial Position Sitting Pulse 80 Pulse Source Pulse Oximeter Intake Visit Reasons: Annual pe Thermostat Repairer Required: No Accompanied by: Self / Same As Patient Allergies No Known Allergies [No Known Allergies*] Allergy (Verified 01/07/25 16:02) Medication List - Last Reconciled 01/07/25 by Prem Mendieta, REGISTERED NURSE FETAL- betamethasone valerate 0.1% 1 appl topical DAILY cholecalciferol (vitamin D3) 250 mcg PO 2XW 90 days clonidine HCl 0.1 mg PO TID PRN hydrocortisone 2.5% 1 appl SC BID-QID PRN 20 days ibuprofen 800 mg PO Q8H PRN 30 days levonorgestrel-ethinyl estrad 0.15 mg-30 mcg (91) (Jolessa) 1 tab PO DAILY linaclotide (Linzess) 290 mcg PO QAM 30 days lorazepam 0.5 mg PO DAILY PRN 20 days methadone (Methadone Intensol) 32 mg PO DAILY mirtazapine 15 mg PO BEDTIME polyethylene glycol 3350 (Miralax) 17 grams PO DAILY 30 days Tobacco use date assessed: 10/25/24 Dental Screening Dental Screen Date: 10/25/24 HPI Annual pe HPI Details History of Present Illness The patient is a 29-year-old female presenting for a routine physical examination. She is undergoing treatment for chronic constipation and is under the care of a knitter operator. She manages her symptoms with Linzess and has not reported any abdominal pain or changes, aside from persistent constipation. The patient also receives psychiatric care (psychiatrist and psychologist)is currently stable with no suicidal or homicidal ideations reported. In addressing her diagnosis of obesity, she has recently started a structured weight loss program which includes a GLP-1 agonist ; however, specific drug names were not provided. She reports continuous engagement in weight management strategies. Furthermore, the patient denies symptoms like fevers, chills, chest pain, and shortness of breath. She also maintains regular appointments with her alley cleaner, with no particular concerns mentioned at this time. Elevated liver enzymes. Hep c Hx, though apparently cleared. Due for Hep B vaccination. Abd US ordered. Health Maintenance - Engagement in a weight loss clinic for obesity management - Management with GLP-1 agonist and for weight reduction Social History - Engaged with a weight loss clinic ilanlakia zhao managing obesity - Regular consultations with healthcare providers including a psychiatrist, therapist, and knitter operator Review of Systems - General: Denies fevers, chills - Cardiovascular: Denies chest pain - Respiratory: Denies shortness of breat h - Gastrointestinal: Denies abdominal jaiden n, denies diarrhea, confirms constipation without blood in the stool denies any si or hi Physical Exam General: Cooperative, healthy appearing, comfortable, no acute distress and well developed, obese Orientation: Patient oriented x3 Limitations: No limitations Head: Normal to inspection Ears: Hearing grossly normal bilaterally Nose: Normal external nose present Face and sinus: Normal facial exam Eyes: Appearance normal, both eyes and all related structures Neck: Normal visual inspection and Yes full ROM Respiratory: Normal respiratory effort and able to speak in complete sentences. Clear to auscultation bilaterally Cardiovascular: Regular rate and rhythm. Normal S1 and S2 GI: Normal to inspection. Soft to palpation and nontender Skin: No rashes or lesions noted Neuro: Patient oriented x3 Extremities: Normal to inspection Results Plan Continued participation at the weight loss clinic with pharmacotherapy using a GLP-1 agonist and SGLT-2 inhibitor is emphasized for obesity management. Scheduled follow-ups to monitor weight and provide necessary support remain in place. Management of chronic constipation with Linzess is ongoing under her knitter operator's direction. Regular psychiatric care involvement remains stable with no noted urgent concerns. Engagement with her RESOURCE TECHNICIAN remains a routine aspect of her healthcare. Discussion Notes During our visit, I reviewed the patient's current engagement with the weight loss clinic and their regimen involving GLP-1 agonist and SGLT-2 inhibitor for obesity management. We discussed the goals of therapy, emphasizing the importance of ongoing follow-up and monitoring. Her chronic constipation is pre sently managed well with Linzess, under the care of her knitter operator. Psychiatric care remains an integral part of her health maintenance, and while stable, we acknowledged the importance of ongoing consultations. Regular RESOURCE TECHNICIAN follow-up as part of comprehensive care was noted. The patient understands the current management plans and expresses commitment to continue with current interventions. Patient Instructions - Continue participation in the weight l oss clinic and adhere to prescribed medications - Follow the treatment plan for constipa tion as directed by the knitter operator - Keep regular appointments with psychia tric and RESOURCE TECHNICIAN providers - Monitor any new symptoms and report co deerns promptly PFSH Medical History Hepatitis C Syphilis Vitamin D deficiency GERD (gastroesophageal reflux disease) Chronic constipation Anxiety and depression Drug abuse Opioid use disorder Scoliosis Sleep disturbance Surgical History Hx of endoscopy Hx of colonoscopy No pertinent past surgical history Family History Father Alcoholism Mother No problems noted. Maternal Grandfather Aneurysm Sister No problems noted. Social History Household Members: None Housing: Apartment Are you a primary school childcare attendant to a significant other at home: No Do you presently have visiting nurse or other home services: No Alcohol intake: current Alcohol intake frequency: holidays/special occasions only Alcohol type: beer and wine Patient Tobacco Use Status: Former Tobacco user Tobacco use type: Smokeless Tobacco Cigarettes Per Day: 2 Years Smoked: 2 years e-Cigarette/Vaping Use: Currently Using service: No Current occupational status: employed Current occupation: N Current occupational exposures/hazards: No Cognitive needs: No Hearing needs: No Vision needs: No Female Reproductive History Menstrual Age of Menarche: 13 Questionnaire Thrive Questionnaire Date Thrive assessed: 01/07/25 I am a: Patient What is your living situation today?: I have a steady place to live Within the past 12 months, did the food you bought not last and you didn't have the money to get more?: Sometimes True Within the past 12 months, did you worry whether your food would run out before you got money to buy more?: Sometimes True Do you have trouble paying for medicines?: No Do you have trouble getting transportation to medical appointments?: No Do you have trouble paying your heating and electricity bill?: No Do you have trouble taking care of your child, family member or friend?: No Do you have trouble with day-to-day activities such as bathing, preparing meals, shopping, managing finances, etc.?: No Are you currently unemployed and looking for a job?: No Are you interested in more education?: No Please select the resources that you would like help with: None Currently or been in a relationship where the following occur: No concerns reported THRIVE Score: 2 ZAINAB-7 AMB Questionnaire ZAINAB-7 Date ZAINAB - 7 assessed: 10/25/24 Source: Developed by Drs. Rogerio Nguyễn, Anuradha Haddad, Srini Bonilla and colleagues, with an educational romie from [employer]. Physical exam (Primary Care) Vital Signs: Last Vital Signs Pulse 80 01/07/25 14:39 BP 110/68 01/07/25 14:39 BMI result Body Mass Index 26.9 Tobacco/Smoking Status: Tobacco use Status Tobacco use date assessed 10/25/24 01/07/25 14:42 Patient Tobacco Use Status Former Tobacco user 01/07/25 14:42 Tobacco use type Smokeless Tobacco 01/07/25 14:42 e-Cigarette/Vaping Use Currently Using 01/07/25 14:42 Thrive Assessment: Date of Thrive Assessment Date Thrive assessed 01/07/25 01/07/25 14:42 Currently or been in a relationship where the following occur: No concerns reported Coding Level of Care Code Est Pt Prev Care 18-39y(42931) Diagnoses Elevated liver enzymes R74.8 Encounter for routine adult physical exam with abnormal findings Z00.01 Assessment & Plan Assessment & Plan (1) Elevated liver enzymes: Code(s): R74.8 - Abnormal levels of other serum enzymes Category: Medical (2) Encounter for routine adult physical exam with abnormal findings: Code(s): Z00.01 - Encounter for general adult medical examination with abnormal findings Category: Medical Plan . Orders: Orders US abdomen complete Today R74.8 - Abnormal levels of other serum enzymes Complete Blood Count Auto Diff Today R74.8 - Abnormal levels of other serum enzymes Comprehensive [place]. Panel Fast Today R74.8 - Abnormal levels of other serum enzymes Lipid Panel Today R74.8 - Abnormal levels of other serum enzymes Medications: New gabapentin 300 mg PO BEDTIME 30 caps 3RF
[2025-01-07 14:39] VITALS: BP 110/68; PULSE 80; BMI 26.9
--- OUTSIDE RECORDS SUMMARY | 2025-01-07 14:39 | XMS_ITS | Encounter Summary ---
Author Organization [facility] Address [address] [place] [address] Care Team Providers Care Veneer Sample Maker Name Role Phone Prem Mendieta NP Primary Care Provider + [phone] Reason for Visit * Consultation (Routine) - Authorized Specialty Diagnoses / Procedures Referred By Negra keller Referred To Contact Physical Therapy Diagnoses Lumbar back pain Segmental dysfunction Guillermo Perdomo DC [address] [place] [address] Phone: tel: fax: Referral ID Status Reason Start Date Expiration Date Visits Requested Visits Authorized [id number] Authorized Specialty Services Required 11/28/2024 11/28/2025 21 21 Encounter Details Date Type Department Care Team (Late st Contact Info) Description 01/03/2025 1:00 PM EDT Treatment [address] [phone] Lionel Palma PTA Lumbar back pain (Primary Dx) Social History Tobacco Use Types Packs/Day Years Used Date Smoking Tobacco: Never Assessed Comments Unknown Sex and Gender Information Value Date Recorded Sex Assigned at Not on file Legal Sex Female 11:42 AM EST Gender Identity Not on file Sexual Orientation Not on file documented as of this encounter Progress Notes * Lionel Palma PTA - 01/03/2025 1:00 PM EDT [facility] - Outpatient PHYSICAL THERAPY DAILY TREATMENT NOTE - OP Date: 01/03/2025 Visit Number: 4 Patient Name: Faye Sanchez : 1995 Age: 29 y.o. Gender: female Diagnosis: ICD-10-CM ICD-9-CM 1. Lumbar back pain M54.50 724.2 Date of Onset/Surgery: No data found Referring Provider: Guillermo Perdomo DC Insurance: [facility] / Plan: [employer] MEDICAID / Product Type: *No Product type* / Patient Identified by: Lionel Palma PTA Language: Speaks and understands Persian as preferred language with no artist scientific required Medications: No current outpatient medications on file prior to visit. No current facility-administered medications on file prior to visit. Allergies: has no allergies on file. Precautions: none Fall risk: No SUBJECTIVE Subjective Report: Patient reports she has her Dad lift her radha litter now. Pt reports she has difficulty sleeping ..and woke up with increased pain this morning Chart Reviewed: Yes Pain: no pain TREATMENT INTERVENTION: NuStep x 5 min L 5 Standing hip flexor and hamstring stretch in cage 3 x 20 sec holds Standing hip ext and abd with orange tband H/L abd bracing x 20 with 5 sec hold Bridging 2 x 10 with 3 to 5 sec hold Supine piriformis stretch 3 x 20 sec hold Hamstring/hip flexor / and piriformis stretches addd to HEP today ASSESSMENT/Response to Treatment Good pt hips appeared even today.. even though pain persisit Patient Education: Education provided: yes Education Provided To: Patient utilizing Demonstration mode(s) of education Response to Education: Verbal Understanding PLAN POC Development/Review: No Change in the Plan of Care; Participants: Patient Interventions Time Entry: Modalities: Therapeutic procedures: Total Treatment Time: 25 mins Documentation completed by Lionel Palma PTA documented in this encounter Plan of Treatment Upcoming Encounters Date Type Department Care Team (Late st Contact Info) Description 01/08/2025 5:30 PM EDT Treatment [facility] [address] [phone] Barry Mesa PTA 01/10/2025 1:30 PM EDT Treatment [facility] [address] [phone] Lionel Palma PTA 01/14/2025 6:00 PM EDT Treatment [facility] [address] [phone] Barry Mesa, BAG MAKER 01/17/2025 1:30 PM EDT Treatment [facility] [address] [phone] Mahendra Oleary, BAG MAKER 01/23/2025 6:00 PM EDT Treatment [facility] [address] [phone] Leodan Caceres, PT [address] [place] [address] documented as of this encounter Goals Goal Patient Goal Type Associated Problems Recent Progress Patient-Stated? Author PT LTG x 15 visits from [facility] 12/20/24 General Yes Leodan Caceres PT Note: [x] = completed goal [] = NOT completed goal [] Pt will be able to sleep through night at least 4x/wk [] Pt will be able to lift and carry a case of water [] Pt will be able to vacuum home without having to stop due to pain PT STG x 8 visits from [facility] 12/20/24 General Yes Leodan Caceres PT Note: [x] = completed goal [] = NOT completed goal [] Pt will improve sleeping capacity to >6-7 hrs/night as it relates to back pain [] Pt will present with symmetrical pelvic alignment [] Pt will improve hip IR to >4-/5 [] Pt will improve hip add 3+/5 R 4-/5 L no pain General Yes Leodan Caceres, PT documented as of this encounter Visit Diagnoses Diagnosis Lumbar back pain- Primary Lumbago documented in this encounter Care Teams Veneer Sample Maker Relationship Specialty Start Date End Date Prem Mendieta NP [address] [place], [place] PCP - General Family Medicine 12/20/24 documented as of this encounter
--- OUTSIDE RECORDS SUMMARY | 2025-01-07 14:39 | XMS_ITS | Clinical Summary ---
Author Organization 175 [facility] Address [address] [place] [address] Phone Care Team Providers Care Dining Services Director Name Role Phone Prem Mendieta NP Primary Care Provider Encounters Date Type Department Care Team Description 01/03/2025 1:00 PM EDT Treatment [facility] [address] [phone] Lionel Palma PTA Lumbar back pain (Primary Dx) 01/01/2025 4:30 PM EDT Treatment [facility] [address] [phone] Mahendra Oleary PTA Lumbar back pain (Primary Dx) 12/27/2024 8:00 AM EDT Treatment [address] [phone] MorrisNoy underwoodis M, PT Lumbar back pain (Primary Dx); Segmental dysfunction of lumbar region 12/20/2024 11:00 AM EDT Evaluation [address] [phone] Morris Rodolfo, PT Lumbar back pain; Segmental dysfunction from Last 3 Months Social History Tobacco Use Types Packs/Day Years [...] Info) Description 01/08/2025 5:30 PM EDT Treatment [facility] [address] [phone] Barry Mesa, TIRE MOUNTER 01/10/2025 1:30 PM EDT Treatment [facility] [address] [phone] Lionel Palma, TIRE MOUNTER 01/14/2025 6:00 PM EDT Treatment [facility] [address] [phone] Barry Mesa, TIRE MOUNTER 01/17/2025 1:30 PM EDT Treatment [facility] [address] [phone] Mahendra Oleary, TIRE MOUNTER 01/23/2025 6:00 PM EDT Treatment [facility] [address] [phone] Leodan Caceres, PT [address] [place] [address] Health Maintenance Due Date Last Done Comments IPV Vaccines (2 of 3 - 4-dose series) 06/15/2000 05/18/2000 Cervical Cancer Screening: Pap Smear 2017 Hepatitis B Vaccines (3 of 3 - 3-dose series) 12/10/2019 10/15/2019, 1995 COVID-19 Vaccine ( season) 2024 03/02/2021, 01/29/2021 Depression Screening 11/29/2024 HIV Screening 11/29/2024 Hepatitis C Screening 11/29/2024 Social Influencers of Health Screening 11/29/2024 Influenza Vaccine (Season Ended) 2025 05/23/2023, 07/21/2022, 07/15/2021, Additional history exists DTaP,Tdap,and Td Vaccines (4 - Td or Tdap) 04/11/2028 04/11/2018, 07/17/2007, 05/18/2000 HIB Vaccines Completed 08/15/1997 MMR Vaccines Completed 11/07/1997 Varicella Vaccines Aged Out 07/11/2008 No longer eligible based on patient's age [...] age to complete this topic Pneumococcal Vaccine: Pediatrics (0 to 5 Years) and At-Risk Patients (6 to 64 Years) Aged Out No longer eligible based on patient's age to complete this topic RSV Immunization Patients Under 20 months Aged Out No longer eligible based on patient's age to complete this topic Goals Goal Patient Goal Type Associated Problems Recent Progress Patient-Stated? Author PT LTG x 15 visits from [facility] 12/20/24 General Yes Loedan Caceres, PT Note: [x] = completed goal [] = NOT completed goal [] Pt will be able to sleep through night at least 4x/wk [] Pt will be able to lift and carry a case of water [] Pt will be able to vacuum home without having to stop due to pain PT STG x 8 visits from [facility] 12/20/24 General Yes Leodan Caceres, PT Note: [x] = completed goal [] = NOT completed goal [] Pt will improve sleeping capacity to >6-7 hrs/night as it relates to back pain [] Pt will present with symmetrical pelvic alignment [] Pt will improve hip IR to >4-/5 [] Pt will improve hip add 3+/5 R 4-/5 L no pain General Yes Leodan Caceres, PT Insurance [facility] PLAN Care Teams Dining Services Director Relationship Specialty Start Date End Date Prem Mendieta NP [address] [place], [place] PCP - General Family Medicine 12/20/24
== END 2025-01-07 15:59 | disposition home or self-care (01) ==
LOC: HO.HMCC 14:31
PROVIDERS: PCP Nurse Practitioner Family; Visit Provider Nurse Practitioner Family
DX: R74.8 Abnormal levels of other serum enzymes (principal); Z00.01 Encounter for general adult medical examination with abnormal findings

== ENCOUNTER → 2025-01-07 14:30 | Outpatient (BNVA) | payer OTHER, SELFPAY | PROVIDERS: PCP Nurse Practitioner Family; Visit Provider Nurse Practitioner Family | DX: Z00.01 Encounter for general adult medical examination with abnormal findings (principal); K59.09 Other constipation; E66.9 Obesity, unspecified; R74.8 Abnormal levels of other serum enzymes; Z87.891 Personal history of nicotine dependence; Z68.26 Body mass index [BMI] 26.0-26.9, adult | CPT/HCPCS: 99395 ==

== ENCOUNTER 2025-01-24 13:01 | Outpatient (AMB) | payer OTHER, SELFPAY ==
--- OUTSIDE RECORDS SUMMARY | 2025-01-24 13:05 | XMS_ITS | Encounter Summary ---
Author Organization [facility] Address [address] [place] [address] Care Team Providers Care Business Agent Name Role Phone Prem Mendieta NP Primary Care Provider + [phone] Reason for Visit * Consultation (Routine) - Authorized Specialty Diagnoses / Procedures Referred By Negra keller Referred To Contact Physical Therapy Diagnoses Lumbar back pain Segmental dysfunction Guillermo Perdomo DC [address] [place] [address] Phone: tel: fax: Referral ID Status Reason Start Date Expiration Date Visits Requested Visits Authorized [id number] Authorized Specialty Services Required 11/28/2024 11/28/2025 21 21 Encounter Details Date Type Department Care Team (Late st Contact Info) Description 01/23/2025 6:00 PM EDT Treatment [facility] [address] [phone] Leodan Caceres, PT [address] [place] [address] Segmental dysfunction of lumbar region (Primary Dx); Lumbar back pain; Segmental dysfunction of other region Social History Tobacco Use Types Packs/Day Years Used Date Smoking Tobacco: Never Assessed Comments Unknown Sex and Gender Information Value Date Recorded Sex Assigned at Not on file Legal Sex Female 11:42 AM EST Gender Identity Not on file Sexual Orientation Not on file documented as of this encounter Progress Notes * Leodan Caceres, PT - 01/23/2025 6:00 PM EDT Images from the original note were not included. [facility] - Outpatient PHYSICAL THERAPY Discharge Date: 01/23/2025 Visit Number: 8 Patient Name: Faye Sanchez : 1995 Age: 29 y.o. Gender: female Diagnosis: ICD-10-CM ICD-9-CM 1. Segmental dysfunction of lumbar region M99.03 739.3 2. Lumbar back pain M54.50 724.2 3. Segmental dysfunction of other region M99.09 739.9 Date of Onset/Surgery: No data found Pt comes in with C/O back pain. Pt reports this began aprox 6-8 months ago without injury or trauma. Pt saw Dr. Conor DC over 3 x months, but no improvement. Ptnow referred to PT. Pt had imaging which was unremarkable. 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 Referring Provider: Guillermo Perdomo DC Insurance: Payor: [employer] PLAN / Plan: [employer] MEDICAID / Product Type: *No Product type* / Patient identified by: Leodan Caceres PT Chart Reviewed: Yes has no past medical history on file. has no past surgical history on file. has no allergies on file. Precautions: Precautions: NA SUBJECTIVE History of Present Illness/Subjective Report: Pt reports I've went on two big hikes and feel good. Is the patient at Risk for Falls: No Pain: 0 /10 OBJECTIVE *=Pain Palpation: TTP with spring testing of L spine, particularly as we move distally. TTP Over R SIJ more than L Spine ROM-- In Degrees Active Lumbar flexion (0-90) Lumbar extension (0-35) Lumbar side bending R (0-25) Lumbar side bending L (0-25) Lumbar Rotation R (0-20) Lumbar Rotation L (0-20) DTR's: unable to elicit left L 3 Sensation: intact to light touch B LE MMT Right Left Ankle PF---SLHR reps 11 10 Ankle DF 5/5 5/5 Knee extension 5/5 5/5 Knee flexion 5/5 5/5 Hip ER 5/5 5/5 Hip IR 4-/5 4-/5 Hip flexion 5/5 5/5 Hip abduction 4/5 4-/5 Hip adduction 3/5 3+/5 Hip extension 3+/5 3+/5 Ability to standard bridge 100% Ability to unilateral bridge 75% 75% Special Tests: Positive standing flexion on right. Lower R PSIS, lower iliac crest, higher right ASIS Positive standing flexion on right. Negative: SLR, ARGENIS, FADDIR TREATMENT INTERVENTIONS Re=eval components. Illustrated HEP. Focus on bridging and Sl hip add. ASSESSMENT/Response to Treatment: Faye Sanchez is a 29 y.o. female has improved well overall, and is Sx free recently. Pt is independent with HEP. Although SIJ alignment a little off, given pt is doing well, this PT is a little hesitant to manipulate that area in any way. No further PT planned at this time. Pt will contact our office if Sx return. Pt education: yes GOALS Goals Addressed This Visit's Progress COMPLETED: no pain (pt-stated) COMPLETED: PT LTG x 15 visits from [facility] 12/20/24 (pt-stated) [x] = completed goal [] = NOT completed goal [x] Pt will be able to sleep through night at least 4x/wk [x] Pt will be able to lift and carry a case of water [x] Pt will be able to vacuum home without having to stop due to pain COMPLETED: PT STG x 8 visits from [facility] 12/20/24 (pt-stated) [x] = completed goal [] = NOT completed goal [x] Pt will improve sleeping capacity to >6-7 hrs/night as it relates to back pain [x] Pt will present with symmetrical pelvic alignment [x] Pt will improve hip IR to >4-/5 [x] Pt will improve hip add 3+/5 R 4-/5 L PLAN POC Development/Review: Participants: Faye Sanchez is a 29 Y.o. female has improved well overall, and is Sx free recently. Pt is independent with HEP. Although SIJ alignment a little off, given pt is doing well, this PT is a little hesitant to manipulate that area in any way. No further PT planned at this time. Pt will contact our office if Sx return.. BILLING TOTAL TREATMENT TIME: 30 Minutes Documentation completed by Leodan Caceres, PT [address] [address] Dept: [phone] Dept PATIENT NAME: Faye Sanchez : 1995 DATE Guillermo Perdomo DC Referring provider documented in this encounter Plan of Treatment Not on file documented as of this encounter Visit Diagnoses Diagnosis Segmental dysfunction of lumbar region- Primary Lumbar back pain Lumbago Segmental dysfunction of other region documented in this encounter Care Teams Business Agent Relationship Specialty Start Date End Date Prem Mendieta NP [address] [place], [place] PCP - General Family Medicine 12/20/24 documented as of this encounter
--- NOTE | 2025-01-24 13:09 | A.OFFVIS_ITS ---
VS Expanded 01/24/25 13:11 Height 5 ft 7 in Weight 170 lb 3.15 oz BMI 26.7 Intake Visit Reasons: Obesity Allergies No Known Allergies [No Known Allergies*] Allergy (Verified 01/07/25 16:02) Nutrition Presentation Details: Pt presents for MNT f/u for obesity Pt reports having self referred to a weight loss clinic and started taking GLP1 for weight loss. Pt reports noticing reduced intake/cravings for sweets particularly at night Pt has questions regarding diet and cholesterol/inc liver enzymes Physical activity: participating in physical therapy once/wk constipation: denies, reports having regular bowel movement water: working on increasing, setting reminders on phone BS Monitoring Most Recent Diabetes Results: Cholesterol 226 mg/dL (<200) H 12/14/24 HDL Cholesterol 47 mg/dL (>40) 12/14/24 Triglycerides 152 mg/dL (<150) H 12/14/24 Creatinine 0.68 mg/dL (0.5-1.4) 12/14/24 Blood Urea Nitrogen 11 mg/dL (9-16) 12/14/24 Sodium 137 mmol/L (135-145) 12/14/24 Potassium 3.9 mmol/L (3.3-5.1) 12/14/24 Chloride 107 mmol/L (96-108) 12/14/24 Carbon Dioxide 21 mmol/L (22-29) L 12/14/24 Calcium 9.5 mg/dL (8.4-10.2) 12/14/24 AST 30 U/L (5-31) 12/14/24 ALT 44 U/L (0-31) H 12/14/24 Total Protein 7.7 g/dL (6.5-8.0) 12/14/24 Albumin 4.3 g/dL (3.5-5.0) 12/14/24 [facility] Medical History Hepatitis C Syphilis Vitamin D deficiency GERD (gastroesophageal reflux disease) Chronic constipation Anxiety and depression Drug abuse Opioid use disorder Scoliosis Sleep disturbance Surgical History Hx of endoscopy Hx of colonoscopy No pertinent past surgical history Family History Father Alcoholism Mother No problems noted. Maternal Grandfather Aneurysm Sister No problems noted. Social History (Reviewed 01/07/25 @ 15:44 by Prem Mendieta [facility]) Household Members: None Housing: Apartment Are you a primary director of critical care to a significant other at home: No Do you presently have visiting nurse or other home services: No Alcohol intake: current Alcohol intake frequency: holidays/special occasions only Alcohol type: beer and wine Patient Tobacco Use Status: Former Tobacco user Tobacco use type: Smokeless Tobacco Cigarettes Per Day: 2 Years Smoked: 2 years e-Cigarette/Vaping Use: Currently Using service: No Current occupational status: employed Current occupation: N Current occupational exposures/hazards: No Cognitive needs: No Hearing needs: No Vision needs: No Female Reproductive History Menstrual Age of Menarche: 13 Assessment & Plan Assessment & Plan (1) Obesity: Code(s): E66.9 - Obesity, unspecified Category: Medical Plan: Wt: 80 Kg ( 01/20 ), 77 kg (01/20) Est kcal needs as per MSJ: 3343-6356 (40% carb, 30% protein/fat) Est fluid needs as per 25-30 ml/d: 2400 Est prot per day as per 1 g/kg bw: 80 Recommend fiber intake : 8-10 g per day and gradually increase to 25-28 g per day for women and 35-38 g for men or as tolerated Recommend sodium intake per day : less than 2000 mg Educated patient on: ( R = reviewed V = verbalizes understanding N/R = needs review N/A = not applicable * Food sources of carbohydrate, adequate serving sizes and its role in various health conditions: R V N/R * Differences between complex carbohydrates a simple carbohydrates, role of fiber in diet: R * Lean protein sources of foods: R * alcohol/sugars/fats and relationship to liver health: R * Differences between types of fats and role in diet (mono on saturated fat fatty acids, saturated fatty acids, trans fats): R V N/R * Food sources of sodium in salt and healthy modifications for heart health in kidney health: R V R/V * Vitamins and minerals: R V N/R * Healthy plate method concept: R * Physical activity: Benefits a precaution: R Patient Instructions: Continue working on reducing saturated fats (fried foods/highly processed meats/pastries as example Include sweet potato as a starch at dinner twice a week with lean protein and vegetables Reduce/abstain from alcohol consumption Coding Level of Care Code Nutr Indiv Subseq (65388) Diagnoses Obesity E66.9 Time Spent (min) 30
[2025-01-24 13:11] VITALS: BMI 26.7
== END 2025-01-24 13:37 | disposition home or self-care (01) ==
LOC: HO.ENCR 13:02
PROVIDERS: PCP Nurse Practitioner Family; Visit Provider Dietitian, Registered
DX: E66.9 Obesity, unspecified (principal)

== ENCOUNTER → 2025-01-24 13:01 | Outpatient (BNVA) | payer OTHER, SELFPAY | PROVIDERS: PCP Nurse Practitioner Family; Visit Provider Dietitian, Registered | DX: E66.9 Obesity, unspecified (principal); Z68.26 Body mass index [BMI] 26.0-26.9, adult | CPT/HCPCS: 97803 ==

== ENCOUNTER 2025-02-14 12:47 | Outpatient (AMB) | payer OTHER, SELFPAY ==
--- NOTE | 2025-02-14 12:51 | A.OFFVIS_ITS ---
Vital Signs 02/14/25 12:56 Height 5 ft 7 in Weight 164 lb BMI 25.7 BP 100/60 Intake Visit Reasons: control consult michelle acevedo Loom Setter: Loom Setter Present Allergies No Known Allergies (No Known Allergies*) Allergy (Verified 02/14/25 12:54) Is last menstrual period known: Yes HPI Comments Details: Patient is here today for control consult. She wants to change from Jolessa to a more effective option for prevention after starting Semiglutide. She admits to having some visual disturbances which include blurring and loss of vision without a headache. She is not sexually active. Patient request a urine check today, history of previous asymptomatic UTI, has occasional pelvic cramping. [facility] Medical History Hepatitis C Syphilis Vitamin D deficiency GERD (gastroesophageal reflux disease) Chronic constipation Anxiety and depression Drug abuse Opioid use disorder Scoliosis Sleep disturbance Surgical History Hx of endoscopy Hx of colonoscopy No pertinent past surgical history Family History Father Alcoholism Mother No problems noted. Maternal Grandfather Aneurysm Sister No problems noted. Social History Household Members: None Housing: Apartment Are you a primary intensive care anaesthetist to a significant other at home: No Do you presently have visiting nurse or other home services: No Alcohol intake: current Alcohol intake frequency: holidays/special occasions only Alcohol type: beer and wine Patient Tobacco Use Status: Former Tobacco user Tobacco use type: Smokeless Tobacco Cigarettes Per Day: 2 Years Smoked: 2 years e-Cigarette/Vaping Use: Currently Using service: No Current occupational status: employed Current occupation: N Current occupational exposures/hazards: No Cognitive needs: No Hearing needs: No Vision needs: No Female Reproductive History Menstrual Age of Menarche: 13 Review of Systems Const All systems reviewed & are unremarkable except as noted in HPI and below Endo Reports no additional complaints Physical Exam Vital Signs: Last Vital Signs BP 100/60 02/14/25 12:56 BMI result Body Mass Index 25.7 Const General: cooperative, healthy appearing and no acute distress Psych Appearance: well kempt Attitude: cooperative Thought process: Normal thought process present Results AMB Test Urine AMB Test Urine Negative Last Edit by Julianna Carey [facility] on 02/14/25 13:29 AMB Urinalysis, Automated UA Leukoctes 0 Fletcher/uL Last Edit by Julianna Carey [facility] on 02/14/25 13:29 UA Nitrite Negative Last Edit by Julianna Carey [facility] on 02/14/25 13:29 UA Urobilinogen 0 mg/dL Last Edit by Julianna Carey [facility] on 02/14/25 13:2 9 UA Protein 1 mg/dL Last Edit by Julianna Carey [facility] on 02/14/25 13:29 UA pH 6.0 Last Edit by Julianna Carey [facility] on 02/14/25 13:29 UA Blood 0 Tiburcio/uL Last Edit by Julianna Carey [facility] on 02/14/25 13:29 UA Specific [place] 1.025 Last Edit by Julianna Carey [facility] on 02/14/25 13:29 UA Ketone Positive Last Edit by Julianna Carey [facility] on 02/14/25 13:29 1 Julianna Carey 02/14/25 13:29 UA Bilirubin 0 mg/dL Last Edit by Julianna Carey [facility] on 02/14/25 13:29 UA Glucose 0 mg/dL Last Edit by Julianna Craey [facility] on 02/14/25 13:29 Results Reviewed Results Reviewed: Laboratory Last Values Urine pH (Auto) 6.0 02/14/25 13:28 Specific [place] (Auto) 1.025 02/14/25 13:28 Urine Protein (Auto) 1 mg/dL 02/14/25 13:28 Glucose (UA)(Auto) 0 mg/dL 02/14/25 13:28 Urine Ketones (Auto) Positive 02/14/25 13:28 Urine Blood (Auto) 0 Tiburcio/uL 02/14/25 13:28 Urine Nitrite (Auto) Negative 02/14/25 13:28 Urine Bilirubin (Auto) 0 mg/dL 02/14/25 13:28 Urine Urobilinogen (Auto) 0 mg/dL 02/14/25 13:28 Leukocyte Esterase (Auto) 0 Fletcher/uL 02/14/25 13:28 Tst Clinic Negative 02/14/25 13:28 Assessment & Plan Assessment & Plan (1) control counseling: Code(s): Z30.09 - Encounter for other general counseling and advice on contraception Category: Medical Plan: Counseled regarding all products available advised to see primary care regarding visual distortions to rule out migraines without headache and to get a current eye examination completed. History of elevated ALT. hyperlipidemia. Has tried Depo in the past and did well with that product. Counseled for Kyleena IUD. Open to having the IUD due to medical concerns. Counseled for preprocedure planning to Advil 1 hour before her procedure with food and fluids. The patient expressed understanding and agreement with the plan of care. All of her ques tions and concerns were addressed to the best of my ability. This note is constructed using voice recognition software. While every effort has been made to ensure accuracy, company doctor errors may have been included. (2) Pelvic cramping: Code(s): R10.2 - Pelvic and perineal pain Plan Urine dip is negative. UPT is negative. Orders: Orders AMB HCG Urine Test Today Z32.02 - Encounter for test, result negative AMB Urinalysis Automated Today R10.2 - Pelvic and perineal pain Medications: Discontinued levonorgestrel-ethinyl estrad 0.15 mg-30 mcg (91) (Alexis) Discontinued Reason: Patient Completed Course 1 tab PO DAILY 91 ea 4RF Coding Level of Care Code Est Pt Level 3 (80584) Diagnoses control counseling Z30. Pelvic cramping R10.2
[2025-02-14 12:56] VITALS: BP 100/60; BMI 25.7
--- OUTSIDE RECORDS SUMMARY | 2025-02-14 13:50 | XMS_ITS | Clinical Summary ---
Author Organization 175 [facility] Address [address] [place] [address] Phone Care Team Providers Care Automat Watcher Name Role Phone Prem Mendieta NP Primary Care Provider [phone] Encounters Date Type Department Care Team Description 01/23/2025 6:00 PM EDT Treatment [address] [phone] Leodan Caceres, PT Segmental dysfunction of lumbar region (Primary Dx); Lumbar back pain; Segmental dysfunction of other region 01/14/2025 6:00 PM EDT Treatment [address] [phone] Barry Mesa, PULMONARY PHYSICAL THERAPIST Segmental dysfunction of lumbar region (Primary Dx) 01/10/2025 1:30 PM EDT Treatment [address] [phone] Lionel Palma, PULMONARY PHYSICAL THERAPIST 01/08/2025 5:30 PM EDT Treatment [address] [phone] Barry Mesa, PULMONARY PHYSICAL THERAPIST Lumbar back pain (Primary Dx) 01/03/2025 1:00 PM EDT Treatment [address] [phone] Lionel Palma, PULMONARY PHYSICAL THERAPIST Lumbar back pain (Primary Dx) 01/01/2025 4:30 PM EDT Treatment [address] [place] [phone] Mahendra Oleary PTA Lumbar back pain (Primary Dx) 12/27/2024 8:00 AM EDT Treatment [address] [phone] Morris Rodolfo, PT Lumbar back pain (Primary Dx); Segmental dysfunction of lumbar region 12/20/2024 11:00 AM EDT Evaluation [address] [phone] Morris Rodolfo, PT Lumbar back pain; Segmental [...] patient's age to complete this topic Insurance [facility] PL[facility] Care Teams Automat Watcher Relationship Specialty Start Date End Date Prem Mendieta NP [address] [place], [place] PCP - General Family Medicine 12/20/24
== END 2025-02-14 13:24 | disposition home or self-care (01) ==
LOC: HO.HWS 12:47
PROVIDERS: PCP Nurse Practitioner Family; Visit Provider Advanced Practice Midwife
DX: R10.2 Pelvic and perineal pain (principal); Z30.09 Encounter for other general counseling and advice on contraception; Z32.02 Encounter for pregnancy test, result negative
CPT/HCPCS: 99213

== ENCOUNTER → 2025-02-14 12:47 | Outpatient (BNVA) | payer OTHER, SELFPAY | PROVIDERS: PCP Nurse Practitioner Family; Visit Provider Advanced Practice Midwife | DX: R10.2 Pelvic and perineal pain (principal); Z30.09 Encounter for other general counseling and advice on contraception; Z32.02 Encounter for pregnancy test, result negative | CPT/HCPCS: 81003; 81025; 99212 ==

== ENCOUNTER 2025-02-15 14:03 | Outpatient (REF) | payer OTHER, SELFPAY ==
--- NOTE | ~2025-02-15 | US_ITS ---
EXAMINATION: US ABDOMEN COMPLETE CLINICAL INFORMATION: Elevated LFTs. COMPARISON: 11/06/2021. TECHNIQUE: Real-time imaging of the abdominal viscera. FINDINGS: PANCREAS: Visualized portions are unremarkable. ABDOMINAL AORTA: The proximal, mid, and distal segments are normal in caliber. INFERIOR VENA CAVA: Visualized portions are normal. LIVER: The liver is normal in size. Right hepatic lobe measures 15.7 cm. The liver contour is normal. Parenchymal echogenicity is normal. No focal hepatic lesion. There is no intrahepatic biliary duct dilatation seen. GALLBLADDER: The gallbladder is physiologically distended without evidence of stones, sludge, polyps, wall thickening or pericholecystic fluid. COMMON BILE DUCT: Normal in caliber measuring 0.3 cm in diameter. RIGHT KIDNEY: No hydronephrosis. No renal calculi or focal parenchymal lesions. The kidney measures 10.8 cm in maximum dimension. LEFT KIDNEY: No hydronephrosis. No renal calculi or focal parenchymal lesions. The kidney measures 10.7 cm in maximum dimension. SPLEEN: The spleen measures 11.3 cm in maximum dimension. FREE FLUID: None. US/US abdomen complete IMPRESSION: Normal abdominal ultrasound. Electronically signed by: Andrew Zepeda MD 02/15/2025 03:45 PM EDT
--- OUTSIDE RECORDS SUMMARY | 2025-02-15 14:05 | XMS_ITS | Clinical Summary ---
Author Organization 175 [facility] Address [address] [place] [address] Phone Care Team Providers Care Director Of Family Service Center Name Role Phone Prem Mendieta NP Primary Care Provider Encounters Date Type Department Care Team Description 01/23/2025 6:00 PM EDT Treatment [address] [phone] Leodan Caceres, PT Segmental dysfunction of lumbar region (Primary Dx); Lumbar back pain; Segmental dysfunction of other region 01/14/2025 6:00 PM EDT Treatment [address] [phone] Barry Mesa, TABLE HAND Segmental dysfunction of lumbar region (Primary Dx) 01/10/2025 1:30 PM EDT Treatment [address] [phone] Lionel Palma, TABLE HAND 01/08/2025 5:30 PM EDT Treatment [address] [phone] Barry Mesa, TABLE HAND Lumbar back pain (Primary Dx) 01/03/2025 1:00 PM EDT Treatment [address] [phone] Lionel Palma, TABLE HAND Lumbar back pain (Primary Dx) 01/01/2025 4:30 PM EDT Treatment [address] [place] [phone] Mahendra Oleary PTA Lumbar back pain (Primary Dx) 12/27/2024 8:00 AM EDT Treatment [address] [phone] Morris Rodolfo, PT Lumbar back pain (Primary Dx); Segmental dysfunction of lumbar region 12/20/2024 11:00 AM EDT Evaluation [address] [phone] Morris Rodolfo, PT Lumbar back pain; Segmental [...] patient's age to complete this topic Insurance [facility] PLAN Care Teams Director Of Family Service Center Relationship Specialty Start Date End Date Prem Mendieta NP [address] [place], [place] PCP - General Family Medicine 12/20/24
== END 2025-02-15 14:04 | disposition home or self-care (01) ==
LOC: HO.HMGCX 14:03
PROVIDERS: PCP Nurse Practitioner Family; Visit Provider Nurse Practitioner Family
DX: R74.8 Abnormal levels of other serum enzymes (principal)
CPT/HCPCS: 76700

== ENCOUNTER → 2025-02-15 14:06 | Outpatient (BNV) | payer OTHER, SELFPAY | PROVIDERS: PCP Nurse Practitioner Family; Visit Provider Radiology Diagnostic Radiology | DX: R74.01 Elevation of levels of liver transaminase levels (principal) | CPT/HCPCS: 76700 ==

== ENCOUNTER 2025-02-28 12:46 | Outpatient (AMB) | payer OTHER, SELFPAY ==
[2025-02-28 12:52] VITALS: BP 98/60; BMI 24.9
--- NOTE | 2025-02-28 12:52 | MHC.OFFVIS ---
Vital Signs 02/28/25 12:52 Height 5 ft 7 in Weight 159 lb BMI 24.9 BP 98/60 Blood Pressure Location Lt brachial Position Sitting Intake Visit Reasons: Kyleena insertion Canoe Builder Required: No Information Interpreted: clinical only (Jeanne) Accompanied by: Self / Same As Patient Allergies No Known Allergies (No Known Allergies*) Allergy (Verified 02/28/25 12:59) Medication List - Last Reconciled 02/28/25 by Lulu Donald LPN betamethasone valerate 0.1% 1 appl topical DAILY cholecalciferol (vitamin D3) 250 mcg PO 2XW 90 days clonidine HCl 0.1 mg PO TID PRN gabapentin 300 mg PO BEDTIME hydrocortisone 2.5% 1 appl MD BID-QID PRN 20 days ibuprofen 800 mg PO Q8H PRN 30 days levonorgestrel-ethinyl estrad 0.15 mg-30 mcg (91) (Jolessa) 1 tab PO DAILY linaclotide (Linzess) 290 mcg PO QAM 30 days lorazepam 0.5 mg PO DAILY PRN 20 days methadone (Methadone Intensol) 18 mg PO DAILY ondansetron 4 mg PO BID PRN 10 days polyethylene glycol 3350 (Miralax) 17 grams PO DAILY 30 days semaglutide mg subcut Is last menstrual period known: Yes Last menstrual period: 02/25/25 Post menopausal: No Patient : No (upt negative) Followed by:: RPeaseLPN Do you need a note to return to daycare/school/sports/work: No HPI Comments Details: Patient is here today for a Kyleena insert. Transitioning from Jolessa. Denies any unprotected intimacy or risk for . [facility] Medical History (Updated 02/28/25 @ 14:13 by Carmenza Wilson CNM) IUD (intrauterine device) in place Hepatitis C Syphilis Vitamin D deficiency GERD (gastroesophageal reflux disease) Chronic constipation Anxiety and depression Drug abuse Opioid use disorder Scoliosis Sleep disturbance Surgical History Hx of endoscopy Hx of colonoscopy No pertinent past surgical history Family History Father Alcoholism Mother No problems noted. Maternal Grandfather Aneurysm Sister No problems noted. Social History Household Members: None Housing: Apartment Are you a primary floor care technician to a significant other at home: No Do you presently have visiting nurse or other home services: No Alcohol intake: current Alcohol intake frequency: holidays/special occasions only Alcohol type: beer and wine Patient Tobacco Use Status: Former Tobacco user Tobacco use type: Smokeless Tobacco Cigarettes Per Day: 2 Years Smoked: 2 years e-Cigarette/Vaping Use: Currently Using service: No Current occupational status: employed Current occupation: [employer] Current occupational exposures/hazards: No Cognitive needs: No Hearing needs: No Vision needs: No Female Reproductive History Menstrual Age of Menarche: 13 Date of last menstrual period: 02/25/25 control method: pills Review of Systems Const All systems reviewed & are unremarkable except as noted in HPI and below Physical Exam Vital Signs: Last Vital Signs BP 98/60 02/28/25 12:52 BMI result Body Mass Index 24.9 Const General: cooperative, healthy appearing and no acute distress Orientation/consciousness: patient oriented x3 GI Inspection: Yes normal to inspection Palpation (GI): Soft to palpation and Other GI palpation findings present (Nontender) Rectal Exam - Female: visual inspection normal General: Yes bladder normal to palpation External Female Exam: normal appearance of the urethra Speculum Exam - Vagina: normal appearance of the vagina, normal palpation and normal vaginal discharge Speculum Exam - Cervix: normal appearance of the cervix and normal palpation Bimanual exam- vagina & uterus: normal bimanual exam, normal palpation, uterine size normal, bladder normal to palpation, normal palpation, uterine shape normal and non-tender Bimanual Exam- Adnexa, other: normal adnexae Neuro General: patient oriented x3 Office Procedures IUD Insert/Removal Details [id number] Insertion Procedure code (CPT) selection complete IUD Insert/Removal Details Details: The patient is here today for a Kyleena IUD insertion. She was counseled on the side effects including: menstrual cycle changes, pain, infection, bleeding, or expulsion. Risks of injury to the vagina, cervix, uterus, tubes, ovaries, bowel, bladder, and any adjacent tissue, resulting in nerve damage, scarring, and pain. Risks complications for the procedure that may require other test including ultrasounds, Xray, CT or MRI scan, surgery, anesthesia, blood transfusion. A urine test was completed and was negative. She was consented for the IUD insertion and has signed the consent form. All questions were answered. IUD Insertion: The patient was placed in the dorsal lithotomy position and a sterile speculum was inserted. The procedure was completed under aseptic technique. The cervix and vagina were cleansed with a Betadine solution x 3 swabs. A single toothed tenaculum was applied to the cervix for stabilization, and the uterus was sounded to 7 cm. The device was inserted and released with a gentle motion. Bleeding from the tenaculum sites and the procedure were minimal. The strings were trimmed to 3cm. All of the equipment was removed and the bimanual was normal, no tip was palpable at the cervical os. The patient tolerated the procedure well and left the office in good condition. Post IUD Insertion Care: There may be some post insertion bleeding for several days that is usually light and can turn to a light brown or pink in color. Mild cramping may occur. Nothing in the vagina including: tampons, douching or intimacy for several days. You may take an over the counter mild analgesia like Tylenol or Advil (if no allergies), per the manufacturers recommendations on dosing and frequency. Follow the directions completely. Call the office if any: fever (over 100.4), flu like symptoms, abdominal pain, worsening cramping not resolved with over the counter medications, foul smelling vaginal odor, signs of infected appearing discharge, or heavy bleeding. Use a condom for a back up method if indicated for 7 days. Always use a condom for STI prevention; IUD's are not protective against STD's. Return to the office in 4-6 weeks for IUD recheck. This note is constructed using voice recognition software. While every effort has been made to ensure accuracy, surface supply breathing apparatus errors may have been included. [id number] Insertion Procedure code (CPT) selection complete Office Meds Kyleena 17.5 mcg/24 hr (up to 5 years) 19.5 mg intrauterine device Performing Provider: Carmenza Wilson CNM Performing Location: [facility] Administered by: Tammie Davis CMA on 02/28/25 13:51 Dose Route Admin Location Dispensed Lot Number Expiration Date [facility] [place] [employer] 1 device intrauterine [facility] device [id number] 09/28/25 28981-585-00 [employer] Total Dispensed Waste 1 device 0 % Results AMB Test Urine AMB Test Urine Negative Last Edit by Lulu Donald LPN on 02/28/25 13:09 Assessment & Plan Assessment & Plan (1) Encounter for IUD insertion: Code(s): Z30.430 - Encounter for insertion of intrauterine contraceptive device Plan: See procedure notes. Plan Jolessa control discontinued. Orders: Orders AMB HCG Urine Test Today Z32.02 - Encounter for test, result negative AMB IUD Insertion/Removal - Patient Supply Today Z30.430 - Encounter for insertion of intrauterine contraceptive device Coding Level of Care Code Procedure Only Diagnoses Encounter for IUD insertion Z30.430 CPT Codes Details - CPT: 03835-YFW Insertion ([id number]) Details - CPT: 42715-DSO Insertion ([id number])
--- OUTSIDE RECORDS SUMMARY | 2025-02-28 12:54 | XMS_ITS | Clinical Summary ---
Author Organization 175 [facility] Address [address] [place] [address] Phone Care Team Providers Care Medical Billing Supervisor Name Role Phone Perm Mendieta NP Primary Care Provider Encounters Date Type Department Care Team Description 01/23/2025 6:00 PM EDT Treatment [address] [phone] Leodan Caceres, PT Segmental dysfunction of lumbar region (Primary Dx); Lumbar back pain; Segmental dysfunction of other region 01/14/2025 6:00 PM EDT Treatment [address] [phone] Barry Mesa, ENGINEERING FACULTY Segmental dysfunction of lumbar region (Primary Dx) 01/10/2025 1:30 PM EDT Treatment [address] [phone] Lionel Palma, ENGINEERING FACULTY 01/08/2025 5:30 PM EDT Treatment [address] [phone] Barry Mesa, ENGINEERING FACULTY Lumbar back pain (Primary Dx) 01/03/2025 1:00 PM EDT Treatment [address] [phone] Lionel Palma, ENGINEERING FACULTY Lumbar back pain (Primary Dx) 01/01/2025 4:30 PM EDT Treatment [address] [place] [phone] Maehndra Oleary PTA Lumbar back pain (Primary Dx) 12/27/2024 8:00 AM EDT Treatment [address] [phone] Morris Rodolfo, PT Lumbar back pain (Primary Dx); Segmental dysfunction of lumbar region 12/20/2024 11:00 AM EDT Evaluation [address] [phone] Morris Rodolfo, PT Lumbar back pain; Segmental [...] patient's age to complete this topic Insurance [facility] PLAN Care Teams Medical Billing Supervisor Relationship Specialty Start Date End Date Prem Mendieta NP [address] [place], [place] PCP - General Family Medicine 12/20/24
--- NOTE | 2025-02-28 13:09 | MHC.OFFVIS ---
Vital Signs 02/28/25 12:52 Height 5 ft 7 in Weight 159 lb BMI 24.9 BP 98/60 Blood Pressure Location Lt brachial Position Sitting Intake Visit Reasons: Kyleena insertion Allergies No Known Allergies (No Known Allergies*) Allergy (Verified 02/28/25 12:59) Medication List - Last Reconciled 02/28/25 by Lulu Donald LPN betamethasone valerate 0.1% 1 appl topical DAILY cholecalciferol (vitamin D3) 250 mcg PO 2XW 90 days clonidine HCl 0.1 mg PO TID PRN gabapentin 300 mg PO BEDTIME hydrocortisone 2.5% 1 appl [place] BID-QID PRN 20 days ibuprofen 800 mg PO Q8H PRN 30 days levonorgestrel-ethinyl estrad 0.15 mg-30 mcg (91) (Jolessa) 1 tab PO DAILY linaclotide (Linzess) 290 mcg PO QAM 30 days lorazepam 0.5 mg PO DAILY PRN 20 days methadone (Methadone Intensol) 18 mg PO DAILY ondansetron 4 mg PO BID PRN 10 days polyethylene glycol 3350 (Miralax) 17 grams PO DAILY 30 days semaglutide mg subcut PFSH Medical History Hepatitis C Syphilis Vitamin D deficiency GERD (gastroesophageal reflux disease) Chronic constipation Anxiety and depression Drug abuse Opioid use disorder Scoliosis Sleep disturbance Surgical History Hx of endoscopy Hx of colonoscopy No pertinent past surgical history Family History Father Alcoholism Mother No problems noted. Maternal Grandfather Aneurysm Sister No problems noted. Social History Household Members: None Housing: Apartment Are you a primary career services assistant to a significant other at home: No Do you presently have visiting nurse or other home services: No Alcohol intake: current Alcohol intake frequency: holidays/special occasions only Alcohol type: beer and wine Patient Tobacco Use Status: Former Tobacco user Tobacco use type: Smokeless Tobacco Cigarettes Per Day: 2 Years Smoked: 2 years e-Cigarette/Vaping Use: Currently Using service: No Current occupational status: employed Current occupation: N Current occupational exposures/hazards: No Cognitive needs: No Hearing needs: No Vision needs: No Female Reproductive History Menstrual Age of Menarche: 13 control method: pills Physical Exam Vital Signs: Last Vital Signs BP 98/60 02/28/25 12:52 BMI result Body Mass Index 24.9 Office Procedures IUD Insert/Removal Details [id number] Insertion Procedure code (CPT) selection complete Office Meds Kyleena 17.5 mcg/24 hr (up to 5 years) 19.5 mg intrauterine device Performing Provider: Carmenza Wilson CNM Performing Location: [facility] Administered by: Tammie Davis CMA on 02/28/25 13:51 Dose Route Admin Location Dispensed Lot Number Expiration Date [facility] [employer] 1 device intrauterine [facility] 1 device [id number] 09/28/25 32281-561-34 [employer] Total Dispensed Waste 1 device 0 % Results AMB Test Urine AMB Test Urine Negative Last Edit by Lulu Donald LPN on 02/28/25 13:09 Results Reviewed Results Reviewed: Laboratory Last Values [facility] Negative 02/28/25 13:06 Assessment & Plan Assessment & Plan Orders: Orders AMB HCG Urine Test Today Z32.02 - Encounter for test, result negative AMB IUD Insertion/Removal - Patient Supply Today Z30.430 - Encounter for insertion of intrauterine contraceptive device Coding CPT Codes Details - CPT: 85787-DBI Insertion ([id number])
== END 2025-02-28 14:19 | disposition home or self-care (01) ==
LOC: HO.HWS 12:47
PROVIDERS: PCP Nurse Practitioner Family; Visit Provider Advanced Practice Midwife
DX: Z30.430 Encounter for insertion of intrauterine contraceptive device (principal); Z32.02 Encounter for pregnancy test, result negative
CPT/HCPCS: 58300

== ENCOUNTER → 2025-02-28 12:46 | Outpatient (BNVA) | payer OTHER, SELFPAY | PROVIDERS: PCP Nurse Practitioner Family; Visit Provider Advanced Practice Midwife | DX: Z30.430 Encounter for insertion of intrauterine contraceptive device (principal); B19.20 Unspecified viral hepatitis C without hepatic coma; E55.9 Vitamin D deficiency, unspecified; K21.9 Gastro-esophageal reflux disease without esophagitis; K59.09 Other constipation; F41.9 Anxiety disorder, unspecified; F32.A Depression, unspecified; F17.290 Nicotine dependence, other tobacco product, uncomplicated | CPT/HCPCS: 58300; 81025; J7296 ==

== ENCOUNTER 2025-03-28 08:12 | Outpatient (AMB) | payer OTHER, SELFPAY ==
--- NOTE | 2025-03-28 08:15 | A.OFFVIS_ITS ---
Vital Signs 03/28/25 08:23 Height 5 ft 7 in Weight 150 lb BMI 23.5 BP 108/64 Blood Pressure Location Lt brachial Position Sitting Pulse 69 Pulse Oximetry (%) 98 Oxygen Delivery Method Room Air Intake Visit Reasons: Follow up Intake Note: Patient follow up for constipation. Patient cc: abdominal pain with bloating, constipation due Ozempic, painfull BM with some spot of blood. Patient said sometimes she have to pull her stool her self. Natural Resources Instructor Required: No Accompanied by: Self / Same As Patient Allergies No Known Allergies (No Known Allergies*) Allergy (Verified 03/28/25 08:15) Medication List - Last Reconciled 03/28/25 by Roge Arthur MD betamethasone valerate 0.1% 1 appl topical DAILY cholecalciferol (vitamin D3) 250 mcg PO 2XW 90 days clonidine HCl 0.1 mg PO TID PRN gabapentin 300 mg PO BEDTIME hydrocortisone 2.5% 1 appl DE BID-QID PRN 20 days hydroxyzine HCl 25 mg PO TID PRN ibuprofen 800 mg PO Q8H PRN 30 days linaclotide (Linzess) 290 mcg PO QAM 30 days lorazepam 0.5 mg PO DAILY PRN 20 days methadone (Methadone Intensol) 6 mg PO DAILY ondansetron 8 mg PO Q12H polyethylene glycol 3350 (Miralax) 17 grams PO DAILY 30 days semaglutide mg subcut HPI HPI Follow up: Details: GI clinic visit for this 29-year-old female for follow-up hep C genotype 1a - treated in the past with Mavyret x 8 weeks. (She missed 2-3 weeks of treatment and hepatitis C viral load was negative at the end of treatment and at 1 year FU testing). Pt has been followed by Dr Grissom since 04/2018. TODAY'S VISIT: Patient cc: Patient cc: abdominal pain with bloating, constipation due Ozempic, painfull BM with some spot of blood. Wt loss of 30 lbs after she started taking Ozempic. Stopped taking Linzess - just got off track Has been tapering suboxone Taking Ozempic for the past 5 months and will continue till the end of this year. Has to use digital manipulation to have a BM Patient said sometimes she have to pull her stool her self. Taking Linzess daily and has been working. Has a BM daily to every other day. Can have rectal/anal pain after a BM with blood (light red) over the stool intermittently - at least once a week and in the stool There can be blood on wiping Can have intermittent hard stool and hurts when she tried to push it out PAST VISIT: Patient is asking for Linzess refill to be send to pharmacy - refill sent EGD and colon results were reviewed with the patient Patient denies major cardiac or pulmonary problems, loud snoring or sleep apnea Has trouble sleeping and only able to sleep 2 hrs at a time. Denies having any surgeries in the past. Takes Ibuprofen 4-5 times a week for migraine JAMES and joint pains. Denies being on chronic anticoagulation. Patient denies known family history of colon polyps, colon cancer or other GI malignancies. Lives by herself and has no children. 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 Unable to have EGD and Colon due to inability to start an IV line (tried 8 times and arms were bruised) Denies using IV drugs in 2 years. Working at [employer] (in patient Rehab) in [place]. Continues to have constipation Taking greens and reds and is able to have a BM when she takes them Abdominal pains and intermittent rectal bleeding Took Linzess for 4 days and had abdominal cramps. 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 Has a BM 1-2 times a week - hard stools associated with straining. Notes rectal bleeding with passage of large BM. Notes BRB on the surface of the stool - unable to tell if there is blood mixed with the stool. Wakes up with stabbing lower abdominal pain - improves after she has a BM. Not taking the supplements since April last year and stopped the workout program she had enrolled in. Tapering Methadone - tapering by 5 mg every 3 days Taking Prevacid with adequate control of heartburn. Takes Gabapentin 1-2 times a month for anxiety. Patient cc: chronic morning abdominal pain and bloating, constipation with some blood spot. Denies any other GI issues. Started taking a supplement - OPTI greens and OPTI reds for bloating (supports immune system, contains digestive enzymes and probiotics) - helps with bloating. Symptoms improved and stopped taking Famotidine and Linzess She was getting acid reflux at night since she was eating ice-cream and candy at bedtime Takes TUMS once a week for acid reflux - upto 10 tablets Has a BM once a day Denies rectal bleeding. 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 She was seen at [facility] on 11/06/21 with above symptoms Unable to keep anything down. Has been feeling better and back to normal for the past week. Has been drinking 3-4 cups of hot water with lemon, apple cider vinegar, honey and cinnamon Above symptoms have resolved since she started drinking hot water with apple cider vinegar Constipation is better and denies any blood in the stool. On a micro dose of suboxone and trying to taper. Not taking Amitiza since it was causing diarrhea. Pt is accompanied by her GM. Worsening constipation for the past 3 months. Has a BM once a week and takes MOM when she starts getting bad stomach pains and unable to poop. Notes rectal bleeding every time she has a BM. Blood was bright red and mixed with the stool. after taking several doses of MOM, she gets diarrhea and does not see any blood. Has hard stools and has to disimpact by digital manipulation. Has tried stool softeners and Miralax which did not work. Has noted bad acid reflux for the past 2-3 weeks - can start in the middle of the night. Has nausea, regurgitation and burning in her throat. Has to cut food in smaller pieces due to swallowing difficulty. Complains of abdominal pain and is very constipated. Has a sharp stabbing pain when she tries to have a BM. Has a BM once a week and it hurts to have a BM. Stool are hards and notes some dark blood on wiping. Has issues going to the bathroom since childhood. Also has heartburn.? Stomach hurts every time she tries to eat. Has gained 40 lbs in the last 6 months. IMAGING STUDIES:? 11/06/21 abdominal ultrasound showed: Normal-appearing gallbladder. Echogenic liver. PAST EGD/COLONOSCOPY:? 06/26/24 EGD AND FLEXIBLE SIGMOIDOSCOPY SHOWED: Endoscopy Findings: ESOPHAGUS: Focal esophagitis STOMACH: Gastritis DUODENUM: Duodenitis in the bulb Colonoscopy Findings: No polyps were detected Random biopsies were obtained from right and left colon to check for microscopic colitis Small non-bleeding internal hemorrhoids on antegrade exam. Plan: Repeat Colonoscopy in 17 years if colon biopsies are normal. Above findings were reviewed with the patient and relevant handouts were given and the discharge area. BIOPSIES SHOWED: A. Small bowel, biopsy: Small intestinal mucosa within normal limits. B. Stomach, antrum, biopsy: Antral-type mucosa with mild chronic inactive inflammation; no Helicobacter organisms seen. C. Stomach, body, biopsy: Oxyntic mucosa with mild chronic inactive inflammation; no Helicobacter organisms seen. D. Colon, right, biopsy: Colonic mucosa within normal limits. E. Colon, left, biopsy: Hyperplastic mucosal polyp. Patient placed on colonoscopy recall list for repeat colonoscopy in 17 years [facility] Medical History (Updated 02/28/25 @ 18:16 by Roge Arthur MD) IUD (intrauterine device) in place Hepatitis C Syphilis Vitamin D deficiency GERD (gastroesophageal reflux disease) Chronic constipation Anxiety and depression Drug abuse Opioid use disorder Scoliosis Sleep disturbance Surgical History Hx of endoscopy Hx of colonoscopy No pertinent past surgical history Family History Father Alcoholism Mother No problems noted. Maternal Grandfather Aneurysm Sister No problems noted. Social History Household Members: None Housing: Apartment Are you a primary manager progressive care to a significant other at home: No Do you presently have visiting nurse or other home services: No Alcohol intake: current Alcohol intake frequency: holidays/special occasions only Alcohol type: beer and wine Patient Tobacco Use Status: Former Tobacco user Tobacco use type: Smokeless Tobacco Cigarettes Per Day: 2 Years Smoked: 2 years e-Cigarette/Vaping Use: Currently Using service: No Current occupational status: employed Current occupation: [employer] Current occupational exposures/hazards: No Cognitive needs: No Hearing needs: No Vision needs: No Female Reproductive History Menstrual Age of Menarche: 13 Review of Systems Const All systems reviewed & are unremarkable except as noted in HPI and below Physical Exam Const General: healthy appearing and no acute distress Nutritional Appearance: average body habitus Orientation/consciousness: patient oriented x3 Limitations: no limitations HEENT Head: Yes normal to inspection Ears: hearing grossly normal bilaterally Eyes Sclerae: sclerae normal Pupils: Equal, round and reactive pupils present Neck Neck: Yes normal visual inspection Chest Chest palpation & inspection: normal inspection of the chest Resp Effort & Inspection: normal respiratory effort Auscultation: clear to auscultation bilaterally Cardio Palpation: normal PMI Rate: regular rate Rhythm: regular rhythm Heart sounds: S1 normal heart sound present, S2 normal heart sound present and no murmurs GI Palpation (GI): Soft to palpation, nontender and No hepatosplenomegaly present Auscultation: normal bowel sounds Rectal Exam - Female: deferred Skin General skin exam: no rashes or lesions noted Neuro General: patient oriented x3, gait normal and moves all extremities Cranial nerves: Yes Equal, round and reactive pupils present Psych Appearance: grossly normal Mental Status: mental status grossly normal Assessment & Plan Assessment & Plan (1) Constipation: Code(s): K59.00 - Constipation, unspecified Category: Medical (2) GERD (gastroesophageal reflux disease): Code(s): K21.9 - Gastro-esophageal reflux disease without esophagitis Category: Medical (3) Hemorrhoids, internal, with bleeding: Code(s): K64.8 - Other hemorrhoids Category: Medical (4) Elevated liver enzymes: Code(s): R74.8 - Abnormal levels of other serum enzymes Category: Medical (5) LUQ abdominal pain: Code(s): R10.12 - Left upper quadrant pain Category: Medical Plan 29 YF with hx of drug abuse, hepatitis C (treated successfully with Mavyret in 2019) and chronic constipation. Pt complains of abdominal pain associated with worsening constipation, wt gain and rectal bleeding associated with straining during a?BM. Pt was advised to take MOM followed by Shena every day for constipation. ADDENDUM: KUB results were reviewed with the patient. Linaclotide has been working well - having a BM daily to every other day. Notes decrease in rectal bleeding Patient was advised to continue above medications and keep follow-up appointment in October 2019. She was seen at [facility] on 11/06/21 with abdominal pain, nausea and vomiting which lasted over a month. Unable to keep anything down. She started drinking 3-4 cups of hot water with lemon, apple cider vinegar, honey and cinnamon and she has been feeling better since and back to normal. Constipation is better and denies any blood in the stool. On a micro dose of suboxone and trying to taper. Not taking Amitiza since it was causing diarrhea. 03/03/23 Start Famotidine at bedtime for GERD symptoms Resume Linzess 72 mcg daily for constipation 07/14/23 OPTI greens and OPTI reds for bloating (supports immune system, contains digestive enzymes and probiotics) - helps with bloating. Symptoms improved and stopped taking Famotidine and Linzess Option for further evaluation with an EGD or barium swallow were reviewed with the pt. She will monitor her symptoms for now and may schedule after her next FU visit 01/12/24 Pt advised to continue Prevacid 15 mg daily for GERD and resume taking Linzess 72 mcg daily Pt is scheduled for an EGD on 04/20/24 (advised to add same day flexible sigmoidoscopy for evaluation of rectal bleeding) 05/18/24 Pt scheduled for EGD and Flex Sig on 04/20/24 and unable to have the procedures due to inability to start an IV line (tried 8 times and arms were bruised) She will be rescheduled for EGD and colonoscopy (She will have a midline placed by IR morning of the procedure) 06/26/24 EGD and colon were performed and findings as noted 11/27/24 Pt advised to take Miralax 1-2 times daily in addition to Linzess Use hydrocortisone cream for rectal pain and bleeding Advised to send me an email update in 2-3 weeks via pt portal 03/28/25 Pt advised to schedule Anorectal Manometry to rule out dyssynergic defecation - referral sent to [facility] She plans to resume taking Linzess and MiraLax for constipation FU in 4 months Orders: Referrals Gastroenterology Referral K59.00 - Constipation, unspecified Medications: Changed From linaclotide (Linzess) 290 mcg PO QAM 30 days 30 caps 3RF K59.00 - Constipation, unspecified To linaclotide (Linzess) 290 mcg PO QAM 90 caps 1RF 90 days K59.00 - Constipation, unspecified Coding Level of Care Code Est Pt Level 4 (06823) Diagnoses Constipation K59.00 GERD (gastroesophageal reflux disease) K21.9 Hemorrhoids, internal, with bleeding K64.8 Elevated liver enzymes R74.8 LUQ abdominal pain R10.12 Time Spent (min) 25
--- OUTSIDE RECORDS SUMMARY | 2025-03-28 08:21 | XMS_ITS | Clinical Summary ---
Author Organization 175 [facility] Address [address] [place] [address] Phone Care Team Providers Care Cafeteria Server Name Role Phone Prem Mendieta NP Primary Care Provider Encounters Date Type Department Care Team Description 01/23/2025 6:00 PM EDT Treatment [address] [phone] Leodan Caceres, PT Segmental dysfunction of lumbar region (Primary Dx); Lumbar back pain; Segmental dysfunction of other region 01/14/2025 6:00 PM EDT Treatment [address] [phone] Barry Mesa, SUSTAINABILITY CONSULTANT Segmental dysfunction of lumbar region (Primary Dx) 01/10/2025 1:30 PM EDT Treatment [address] [phone] Lionel Palma, SUSTAINABILITY CONSULTANT 01/08/2025 5:30 PM EDT Treatment [address] [phone] Barry Mesa, SUSTAINABILITY CONSULTANT Lumbar back pain (Primary Dx) 01/03/2025 1:00 PM EDT Treatment [address] [phone] Lionel Palma, SUSTAINABILITY CONSULTANT Lumbar back pain (Primary Dx) 01/01/2025 4:30 PM EDT Treatment [address] [place] [phone] Mamta, Lee, SUSTAINABILITY CONSULTANT Lumbar back pain (Primary Dx) 12/27/2024 8:00 AM EDT Treatment [facility] [address] [phone] Leodan Caceres M, PT Lumbar back pain (Primary Dx); Segmental dysfunction of lumbar region from Last 3 Months Social History Tobacco [...] 3-dose series) 12/10/2019 10/15/2019, 1996 COVID-19 Vaccine (3 - season) 2024 03/02/2021, 01/29/2021 Depression Screening 08/29/2024 HIV Screening 11/29/2024 Hepatitis C Screening 11/29/2024 Social Influencers of Health Screening 11/29/2024 Influenza Vaccine (#1) 2025 3, 07/21/2022, 07/15/2021, Additional history exists DTaP,Tdap,and Td [...] 5 Years) and At-Risk Patients (6 to 49 Years) Aged Out No longer eligible based on patient's age to complete this topic RSV Immunization Patients Under 20 months Aged Out No longer eligible based on patient's age to complete this topic Insurance [facility] PL[facility] Care Teams Cafeteria Server Relationship Specialty Start Date End Date Prem Mendieta NP [address] [facility] [place] PCP - General Family Medicine 12/20/24
[2025-03-28 08:23] VITALS: BP 108/64; PULSE 69; O2SAT 98; BMI 23.5
== END 2025-03-28 08:52 | disposition home or self-care (01) ==
LOC: HO.HGI 08:13
PROVIDERS: PCP Nurse Practitioner Family; Visit Provider Internal Medicine Gastroenterology
DX: K59.00 Constipation, unspecified (principal); K21.9 Gastro-esophageal reflux disease without esophagitis; K64.8 Other hemorrhoids; R74.8 Abnormal levels of other serum enzymes; R10.12 Left upper quadrant pain
CPT/HCPCS: 99214

== ENCOUNTER → 2025-03-28 08:12 | Outpatient (BNVA) | payer OTHER, SELFPAY | PROVIDERS: PCP Nurse Practitioner Family; Visit Provider Internal Medicine Gastroenterology | DX: R10.12 Left upper quadrant pain (principal); K59.03 Drug induced constipation; T50.995A Adverse effect of other drugs, medicaments and biological substances, initial encounter; K21.9 Gastro-esophageal reflux disease without esophagitis; K64.8 Other hemorrhoids; R74.8 Abnormal levels of other serum enzymes | CPT/HCPCS: 99212 ==

== ENCOUNTER 2025-03-29 14:06 | Outpatient (REF) | payer OTHER, SELFPAY ==
--- OUTSIDE RECORDS SUMMARY | 2025-03-29 14:08 | XMS_ITS | Clinical Summary ---
Author Organization 175 [facility] Address [address] [place] [address] Phone Care Team Providers Care Supervisor Home Restoration Service Name Role Phone Prem Mendieta NP Primary Care Provider Encounters Date Type Department Care Team Description 01/23/2025 6:00 PM EDT Treatment [address] [phone] Leodan Caceres, PT Segmental dysfunction of lumbar region (Primary Dx); Lumbar back pain; Segmental dysfunction of other region 01/14/2025 6:00 PM EDT Treatment [address] [phone] Barry Mesa, HORTICULTURE/FLORICULTURE TEACHER Segmental dysfunction of lumbar region (Primary Dx) 01/10/2025 1:30 PM EDT Treatment [address] [phone] Lionel Palma, HORTICULTURE/FLORICULTURE TEACHER 01/08/2025 5:30 PM EDT Treatment [address] [phone] Barry Mesa, HORTICULTURE/FLORICULTURE TEACHER Lumbar back pain (Primary Dx) 01/03/2025 1:00 PM EDT Treatment [address] [phone] Lionel Palma, HORTICULTURE/FLORICULTURE TEACHER Lumbar back pain (Primary Dx) 01/01/2025 4:30 PM EDT Treatment [address] [place] [phone] Mamta, Lee, HORTICULTURE/FLORICULTURE TEACHER Lumbar back pain (Primary Dx) 12/27/2024 8:00 AM EDT Treatment [facility] - [address] [phone] Leodan Caceres M, PT Lumbar back pain [...] patient's age to complete this topic Insurance [facility] Care Teams Supervisor Home Restoration Service Relationship Specialty Start Date End Date Prem Mendieta NP [address] [facility] [place] PCP - General Family Medicine 12/20/24
[2025-03-29 16:32] LABS: MANUAL DIFF FLAG NO
[2025-03-29 16:39] LABS: Hematocrit 45.2 % (37.0-47.0); Hemoglobin 15.2 g/dl (12.0-16.0); Imm Gran Abs Auto 0.03 X10*3/uL (0.00-0.03); Imm Gran Pct Auto 0.3 % (0.0-0.4); Lymphocytes Absolute Auto 3.4 X10*3/uL (1.2-4.9); Mean Corpuscular HGB Conc 33.6 g/dl (31.0-35.0); Mean Corpuscular Hemoglobin 28.6 pg (27.0-33.0); Mean Corpuscular Volume 85.1 fL (80.0-98.0); NRBC Abs Auto 0.000 X10*3/uL (0.0-0.012); NRBC Pct Auto 0.0 /100WBC (0.0-0.2); Platelet Count 269 X10*3/uL (160-400); Red Blood Count 5.31 X10*6/uL (4.20-5.50); White Blood Count 9.9 X10*3/uL (4.8-10.8)
[2025-03-29 17:21] LABS: Alanine Aminotransferase 36 U/L (0-31); Albumin Level 5.2 g/dL (3.5-5.0); Alkaline Phosphatase 84 U/L (39-117); Anion Gap 16 (12-20); Aspartate Amino Transferase 29 U/L (5-31); Blood Urea Nitrogen 14 mg/dL (9-16); Calcium 9.7 mg/dL (8.4-10.2); Carbon Dioxide 22 mmol/L (22-29); Chloride 106 mmol/L (96-108); Cholesterol 180 mg/dL (<200); Estimated Glomerular Filt Rate > 60; HDL Cholesterol 55 mg/dL (>40); Lipase 19 U/L (8-78); Potassium 4.3 mmol/L (3.3-5.1); Sodium 140 mmol/L (135-145); Total Protein 8.4 g/dL (6.5-8.0); Triglycerides 69 mg/dL (<150)
== END 2025-03-29 14:07 | disposition home or self-care (01) ==
LOC: HO.HMGCLDS 14:06
PROVIDERS: PCP Nurse Practitioner Family; Referring Provider Internal Medicine Gastroenterology; Visit Provider Nurse Practitioner Family
DX: R10.12 Left upper quadrant pain (principal); R74.8 Abnormal levels of other serum enzymes
CPT/HCPCS: 36415; 80053; 80061; 80076; 82248; 83690; 85025

== ENCOUNTER 2025-04-04 06:54 | Outpatient (AMB) | payer OTHER, SELFPAY ==
--- OUTSIDE RECORDS SUMMARY | 2025-04-04 06:57 | XMS_ITS | Clinical Summary ---
Author Organization 175 [facility] Address [address] [place] [address] Phone Care Team Providers Care Cpo Name Role Phone Prem Mendieta NP Primary Care Provider [phone] Encounters Date Type Department Care Team Description 01/23/2025 6:00 PM EDT Treatment [address] [phone] Leodan Caceres, PT Segmental dysfunction of lumbar region (Primary Dx); Lumbar back pain; Segmental dysfunction of other region 01/14/2025 6:00 PM EDT Treatment [address] [phone] Barry Mesa, ABSORPTION PLANT OPERATOR HELPER Segmental dysfunction of lumbar region (Primary Dx) 01/10/2025 1:30 PM EDT Treatment [address] [phone] Lionel Palma, ABSORPTION PLANT OPERATOR HELPER 01/08/2025 5:30 PM EDT Treatment [address] [phone] Barry Mesa, ABSORPTION PLANT OPERATOR HELPER Lumbar back pain (Primary Dx) 01/03/2025 1:00 PM EDT Treatment [address] [phone] Lionel Palma, ABSORPTION PLANT OPERATOR HELPER Lumbar back pain (Primary Dx) from Last 3 Months Social History Tobacco [...] 12/10/2019 10/15/2019, 1996 COVID-19 Vaccine (3 - 2023- season) 2024 03/02/2021, 01/29/2021 Depression Screening 08/29/2024 [...] patient's age to complete [place] [id number] [facility] Care Teams Cpo Relationship Specialty Start Date End Date Prem Mendieta NP [address] [place], [place] PCP - General Family Medicine 12/20/24
--- NOTE | 2025-04-04 07:54 | A.OFFPC_ITS ---
Intake Visit Reasons: 3m follow up Allergies No Known Allergies (No Known Allergies*) Allergy (Verified 04/04/25 08:00) Medication List - Last Reconciled 04/04/25 by LOULOU Amador- betamethasone valerate 0.1% 1 appl topical DAILY cholecalciferol (vitamin D3) 250 mcg PO 2XW 90 days clonidine HCl 0.1 mg PO TID PRN gabapentin 300 mg PO BEDTIME hydrocortisone 2.5% 1 appl AR BID-QID PRN 20 days hydroxyzine HCl 25 mg PO TID PRN ibuprofen 800 mg PO Q8H PRN 30 days linaclotide (Linzess) 290 mcg PO QAM 90 days lorazepam 0.5 mg PO DAILY PRN 20 days methadone (Methadone Intensol) 6 mg PO DAILY ondansetron 8 mg PO Q12H polyethylene glycol 3350 (Miralax) 17 grams PO DAILY 30 days semaglutide mg subcut Tobacco use date assessed: 10/25/24 Dental Screening Dental Screen Date: 10/25/24 HPI 3m follow up HPI Details History of Present Illness The patient is a 29-year-old female presenting for telehealth consultation regarding weight loss management and mental health concerns. The patient is currently using a GLP-1 agonist, specifically Ozempic, for weight loss, which she is not obtaining through myself. She reports significant adverse effects, including severe nausea and complete loss of appetite, as well as gastrointestinal disturbances such as diarrhea, despite a history of constipation. The recommendation was made to gradually discontinue the medication due to these side effects, and the patient plans to follow this advice. Regarding her mental health, the patient reports ongoing anxiety and depression, with the latter being relatively well-managed. Her therapist has requested the continuation of her anti-anxiety medication, lorazepam, due to her dissatisfaction with her current psychiatrist (see letter in portal). The p atient understands the risks associated with lorazepam, including potential for abuse, and has been using it on an as-needed basis for over a year. She has been advised to seek a new psychiatrist for ongoing management of her mental health conditions. Review of Systems - Gastrointestinal: Reports diarrhea, de nies constipation currently. - Psychiatric: Reports anxiety and depre ssion, denies worsening of depression. Plan The patient was advised to discontinue the GLP-1 agonist, Ozempic, due to adverse effects such as nausea, loss of appetite, and diarrhea. A gradual weaning off the medication was recommended to minimize withdrawal symptoms, and the patient agreed to this plan. For her anxiety, the continuation of lorazepam was discussed, with the understanding that it should not be used daily to avoid dependency. The patient was encouraged to find a new psychiatrist for ongoing management of her mental health conditions, as she is not satisfied with her current psychiatrist. Discussion Notes I discussed with the patient the adverse effects of the GLP-1 agonist, Ozempic, and recommended a gradual discontinuation to avoid withdrawal symptoms. We also talked about her anxiety management, emphasizing the importance of not using lorazepam daily to prevent dependency. I advised her to seek a new psychiatrist for better management of her mental health conditions, given her dissatisfaction with her current psychiatrist. I will continue her on this med, with a understanding she is not to take it daily and a psychiatrist may be needed in the future. She reported understanding Patient Instructions - Gradually stop taking Ozempic to avoid withdrawal symptoms. - Do not take lorazepam daily; use it on ly as needed. - Find a new psychiatrist for ongoing [facility] management. [facility] Medical History IUD (intrauterine device) in place Hepatitis C Syphilis Vitamin D deficiency GERD (gastroesophageal reflux disease) Chronic constipation Anxiety and depression Drug abuse Opioid use disorder Scoliosis Sleep disturbance Surgical History Hx of endoscopy Hx of colonoscopy No pertinent past surgical history Family History Father Alcoholism Mother No problems noted. Maternal Grandfather Aneurysm Sister No problems noted. Social History Household Members: None Housing: Apartment Are you a primary complex care nurse practitioner to a significant other at home: No Do you presently have visiting nurse or other home services: No Alcohol intake: current Alcohol intake frequency: holidays/special occasions only Alcohol type: beer and wine Patient Tobacco Use Status: Former Tobacco user Tobacco use type: Smokeless Tobacco Cigarettes Per Day: 2 Years Smoked: 2 years e-Cigarette/Vaping Use: Currently Using service: No Current occupational status: employed Current occupation: N Current occupational exposures/hazards: No Cognitive needs: No Hearing needs: No Vision needs: No Female Reproductive History Menstrual Age of Menarche: 13 Questionnaire Thrive Questionnaire Date Thrive assessed: 10/18/24 I am a: Patient What is your living situation today?: I have a steady place to live Within the past 12 months, did the food you bought not last and you didn't have the money to get more?: Sometimes True Within the past 12 months, did you worry whether your food would run out before you got money to buy more?: Sometimes True Do you have trouble paying for medicines?: No Do you have trouble getting transportation to medical appointments?: No Do you have trouble paying your heating and electricity bill?: No Do you have trouble taking care of your child, family member or friend?: No Do you have trouble with day-to-day activities such as bathing, preparing meals, shopping, managing finances, etc.?: No Are you currently unemployed and looking for a job?: No Are you interested in more education?: No Please select the resources that you would like help with: None Currently or been in a relationship where the following occur: No concerns reported THRIVE Score: 2 ZAINAB-7 AMB Questionnaire ZAINAB-7 Date ZAINAB - 7 assessed: 10/25/24 Source: Developed by Drs. Rogerio Nguyễn, Anuradha Haddad, Srini Bonilla and colleagues, with an educational romie from [employer]. Physical exam (Primary Care) Tobacco/Smoking Status: Tobacco use Status Tobacco use date assessed 10/25/24 02/14/25 13:46 Patient Tobacco Use Status Former Tobacco user 02/14/25 13:46 Tobacco use type Smokeless Tobacco 02/14/25 13:46 e-Cigarette/Vaping Use Currently Using 02/14/25 13:46 Thrive Assessment: Date of Thrive Assessment Date Thrive assessed 10/18/24 03/28/25 12:06 Currently or been in a relationship where the following occur: No concerns reported Telehealth Telehealth Telehealth Platform: [facility] Location of provider rendering services: practice address Location of patient: address on file Patient Identification confirmed using: Name, : Yes Telehealth method: video Patient verbally consented to treatment: Yes Patient verbally consented to billing insurance company: Yes Patient informed of any privacy concerns related to visit: Yes Minutes spent on Phone/Video with Pt.: 20 Coding Level of Care Code Tele Est Pt Level 3 (04515) Diagnoses Panic attacks F41.0 Anxiety and depression F41.9; F32.9 Obesity E66.9 Assessment & Plan Assessment & Plan (1) Panic attacks: Code(s): F41.0 - Panic disorder [episodic paroxysmal anxiety] Category: Medical (2) Anxiety and depression: Code(s): F41.9 - Anxiety disorder, unspecified; F32.9 - Major depressive disorder, single episode, unspecified Category: Medical (3) Obesity: Code(s): E66.9 - Obesity, unspecified Category: Medical Plan .
== END 2025-04-04 08:38 | disposition home or self-care (01) ==
LOC: HO.HMCC 06:55
PROVIDERS: PCP Nurse Practitioner Family; Visit Provider Nurse Practitioner Family
DX: F41.0 Panic disorder [episodic paroxysmal anxiety] (principal); F41.9 Anxiety disorder, unspecified; F32.9 Major depressive disorder, single episode, unspecified; E66.9 Obesity, unspecified

== ENCOUNTER 2025-05-02 12:59 | Outpatient (AMB) | payer OTHER, SELFPAY ==
[2025-05-02 13:08] VITALS: BMI 22.8
--- NOTE | 2025-05-02 13:08 | A.OFFVIS_ITS ---
VS Expanded 05/02/25 13:08 Height 5 ft 7 in Weight 145 lb 11.609 oz BMI 22.8 Intake Visit Reasons: Obesity Allergies No Known Allergies (No Known Allergies*) Allergy (Verified 04/04/25 08:00) Nutrition Presentation Details: Pt presents for MNT f/u for obesity Pt's current weight at 146 lbs (BMI at 22.8) physical activity: restarted walking 1/wk for 30-40 min , working on getting energy back and having 2- 3 meals/d Reports having had episodes of not eating well, with vomiting and diarrhea in the month of 03/2025 related to GLP1(OZempic). Pt reports having discussed the medication and side effects with PCP who advised to gradually discontinue the medication and Pt reports working on reducing the medication related to GI side effects, including hypoglycemia). Pt is concerned about regaining the weight. Pt was advised to gradually work on having scheduled meals and working on an exercise routine. typical meal B: high protein yogurt and fruit, water or tea L: often skips of may have a meal replacement or protein bar dinner: starch/veg/protein- typically has meal with fam members has juice/fruit or crackers throughout the day f BS Monitoring Most Recent Diabetes Results: Cholesterol, (<200) 180 mg/dL 03/29/25 HDL Cholesterol, (>40) 55 mg/dL 03/29/25 Triglycerides, (<150) 69 mg/dL 03/29/25 Creatinine, (0.5-1.4) 0.69 mg/dL 03/29/25 BUN, (9-16) 14 mg/dL 03/29/25 Sodium, (135-145) 140 mmol/L 03/29/25 Potassium, (3.3-5.1) 4.3 mmol/L 03/29/25 Chloride, (96-108) 106 mmol/L 03/29/25 Carbon Dioxide, (22-29) 22 mmol/L 03/29/25 Calcium, (8.4-10.2) 9.7 mg/dL 03/29/25 AST, (5-31) 29 U/L 03/29/25 ALT, (0-31) 36 U/L H 03/29/25 Total Protein, (6.5-8.0) 8.4 g/dL H 03/29/25 Albumin, (3.5-5.0) 5.2 g/dL H 03/29/25 PFSH Medical History IUD (intrauterine device) in place Hepatitis C Syphilis Vitamin D deficiency GERD (gastroesophageal reflux disease) Chronic constipation Anxiety and depression Drug abuse Opioid use disorder Scoliosis Sleep disturbance Surgical History Hx of endoscopy Hx of colonoscopy No pertinent past surgical history Family History Father Alcoholism Mother No problems noted. Maternal Grandfather Aneurysm Sister No problems noted. Social History Household Members: None Housing: Apartment Are you a primary critical care cns to a significant other at home: No Do you presently have visiting nurse or other home services: No Alcohol intake: current Alcohol intake frequency: holidays/special occasions only Alcohol type: beer and wine Patient Tobacco Use Status: Former Tobacco user Tobacco use type: Smokeless Tobacco Cigarettes Per Day: 2 Years Smoked: 2 years e-Cigarette/Vaping Use: Currently Using service: No Current occupational status: employed Current occupation: [employer] Current occupational exposures/hazards: No Cognitive needs: No Hearing needs: No Vision needs: No Female Reproductive History Menstrual Age of Menarche: 13 Assessment & Plan Assessment & Plan (1) Obesity: Code(s): E66.9 - Obesity, unspecified Category: Medical Plan: Wt: 80 Kg ( 01/20 ), 77 kg (01/20), 66 kg(05/23) Est kcal needs as per MSJ: 6446-0502 (40% carb, 30% protein/fat) Est fluid needs as per 25-30 ml/d: 2000 Est prot per day as per 1 g/kg bw: 60-70 Recommend fiber intake : 8-10 g per day and gradually increase to 25-28 g per day for women and 35-38 g for men or as tolerated Recommend sodium intake per day : less than 2000 mg Educated patient on: ( R = reviewed V = verbalizes understanding N/R = needs review N/A = not applicable * Food sources of carbohydrate, adequate serving sizes and its role in various health conditions: R * Differences between complex carbohydrates a simple carbohydrates, role of fiber in diet: R * Lean protein sources of foods: R * alcohol/sugars/fats and relationship to liver health: R * Differences between types of fats and role in diet (mono on saturated fat fatty acids, saturated fatty acids, trans fats): R V N/R * Food sources of sodium in salt and healthy modifications for heart health in kidney health: R V R/V * Vitamins and minerals: R V N/R * Healthy plate method concept: R , V * Working on meal routine , high fiber foods * Physical activity: Benefits a precaution: R Patient Instructions: Carry with peanut butter crackers or meal replacement instead of skipping meals Keep hydrated by having 8 oz of water with meals/snacks , and diluted juices with water, low sugar beverages to keep hydrated Coding Level of Care Code Nutr Indiv Subseq (35224) Diagnoses Obesity E66.9 Time Spent (min) 30
--- OUTSIDE RECORDS SUMMARY | 2025-05-02 14:15 | XMS_ITS | Clinical Summary ---
Author Organization [address] [place] [address] Address [address] [place] [address] Phone Care Team Providers Care Ancillary Services Manager Therapy Name Role Phone Prem Mendieta NP Primary Care Provider Social History Tobacco Use Types Packs/Day Years [...] ( season) 2024 03/02/2021, 01/29/2021 Depression Screening 08/29/2024 [...] patient's age to complete this topic Insurance [facility] Care Teams Ancillary Services Manager Therapy Relationship Specialty Start Date End Date Prem Mendieta NP [address], [place] PCP - General Family Medicine 12/20/24
== END 2025-05-02 14:41 | disposition home or self-care (01) ==
LOC: HO.ENCR 13:00
PROVIDERS: PCP Nurse Practitioner Family; Visit Provider Dietitian, Registered
DX: E66.9 Obesity, unspecified (principal)

== ENCOUNTER → 2025-05-02 12:59 | Outpatient (BNVA) | payer OTHER, SELFPAY | PROVIDERS: PCP Nurse Practitioner Family; Visit Provider Dietitian, Registered | DX: E66.9 Obesity, unspecified (principal) | CPT/HCPCS: 97803 ==

== ENCOUNTER 2025-05-08 08:19 | Outpatient (AMB) | payer OTHER, SELFPAY ==
--- NOTE | 2025-05-08 08:23 | A.OFFVIS_ITS ---
Vital Signs 05/08/25 08:31 Height 5 ft 7 in Weight 145 lb BMI 22.7 BP 104/70 Intake Visit Reasons: iud check Enamel Dipper: Enamel Dipper Present (Marcelina) Accompanied by: Self / Same As Patient Allergies No Known Allergies (No Known Allergies*) Allergy (Verified 05/08/25 08:31) HPI Comments Details: Patient is here today for a follow up IUD insertion check. Kyleena inserted February 2025. Initially had cramping, now resolved. [facility] Medical History IUD (intrauterine device) in place Hepatitis C Syphilis Vitamin D deficiency GERD (gastroesophageal reflux disease) Chronic constipation Anxiety and depression Drug abuse Opioid use disorder Scoliosis Sleep disturbance Surgical History Hx of endoscopy Hx of colonoscopy No pertinent past surgical history Family History Father Alcoholism Mother No problems noted. Maternal Grandfather Aneurysm Sister No problems noted. Social History Household Members: None Housing: Apartment Are you a primary child care provider to a significant other at home: No Do you presently have visiting nurse or other home services: No Alcohol intake: current Alcohol intake frequency: holidays/special occasions only Alcohol type: beer and wine Patient Tobacco Use Status: Former Tobacco user Tobacco use type: Smokeless Tobacco Cigarettes Per Day: 2 Years Smoked: 2 years e-Cigarette/Vaping Use: Currently Using service: No Current occupational status: employed Current occupation: [employer] Current occupational exposures/hazards: No Cognitive needs: No Hearing needs: No Vision needs: No Female Reproductive History Menstrual Age of Menarche: 13 control method: progestin IUCD (Kyleena) Review of Systems Const All systems reviewed & are unremarkable except as noted in HPI and below Physical Exam Vital Signs: Last Vital Signs BP 104/70 05/08/25 08:31 BMI result Body Mass Index 22.7 Const General: cooperative, healthy appearing and no acute distress Orientation/consciousness: patient oriented x3 GI Inspection: Yes normal to inspection Palpation (GI): Soft to palpation and Other GI palpation findings present (Nontender) Rectal Exam - Female: visual inspection normal General: Yes bladder normal to palpation External Female Exam: normal appearance of the urethra Speculum Exam - Vagina: normal appearance of the vagina, normal palpation and normal vaginal discharge Speculum Exam - Cervix: normal appearance of the cervix, normal palpation and Other cervical findings present (IUD strings at the os) Bimanual exam- vagina & uterus: normal bimanual exam, normal palpation, uterine size normal, bladder normal to palpation, normal palpation, uterine shape normal and non-tender Bimanual Exam- Adnexa, other: normal adnexae Neuro General: patient oriented x3 Results AMB Test Urine AMB Test Urine Negative Last Edit by JANEE Teixeira on 05/08/25 08:36 Results Reviewed Results Reviewed: Laboratory Last Values [facility] Clinic Negative 05/08/25 08:36 Assessment & Plan Assessment & Plan (1) IUD check up: Code(s): Z30.431 - Encounter for routine checking of intrauterine contraceptive device Plan Advised to monitor for symptoms and report to the office if any concerns. Annual exam scheduled September 2025. The patient expressed understanding and agreement with the plan of care. All of her questions and concerns were addressed to the best of my ability. This note is constructed using voice recognition software. While every effort has been made to ensure accuracy, bid writer errors may have been included. Orders: Orders AMB HCG Urine Test Today Z32.02 - Encounter for test, result negative Coding Level of Care Code Est Pt Level 2 (81097) Diagnoses IUD check up Z30.431
[2025-05-08 08:31] VITALS: BP 104/70; BMI 22.7
--- OUTSIDE RECORDS SUMMARY | 2025-05-08 09:30 | XMS_ITS | Clinical Summary ---
Author Organization [address] [place] [address] [address] [place] [address] Phone Care Team Providers Care Tester Vibrator Equipment Name Role Phone Prem Mendieta NP Primary [...] 3 - 3-dose series) 12/10/2019 10/15/2019, 1996 Depression Screening 08/29/2024 HIV Screening 11/29/2024 Hepatitis C Screening 11/29/2024 Social Influencers of Health Screening 11/29/2024 COVID-19 Vaccine ( season) 2025 03/02/2021, 01/29/2021 Influenza Vaccine (#1) 2025 3, 07/21/2022, 07/15/2021, [...] [facility] Care Teams Tester Vibrator Equipment Relationship Specialty Start Date End Date Prem Mendieta NP [address], [place] PCP - General Family Medicine 12/20/24
== END 2025-05-08 09:29 | disposition home or self-care (01) ==
LOC: HO.HWS 08:20
PROVIDERS: PCP Nurse Practitioner Family; Visit Provider Advanced Practice Midwife
DX: Z32.02 Encounter for pregnancy test, result negative (principal); Z30.431 Encounter for routine checking of intrauterine contraceptive device
CPT/HCPCS: 99212

== ENCOUNTER → 2025-05-08 08:19 | Outpatient (BNVA) | payer OTHER, SELFPAY | PROVIDERS: PCP Nurse Practitioner Family; Visit Provider Advanced Practice Midwife | DX: Z30.431 Encounter for routine checking of intrauterine contraceptive device (principal) | CPT/HCPCS: 81025; 99212 ==